=== PATIENT | male | born 1965 | race Caucasian/White ===

== ENCOUNTER → 2018-06-21 | Outpatient (CLI) | payer BC ==
[2018-06-21 16:37] LABS: BASO # 0.1 10^3/uL (0.0-0.2); BASO % 0.8 % (0.0-1.0); EOS # 0.1 10^3/uL (0.0-0.50); EOS % 1.2 % (0.0-3.0); HEMATOCRIT 41.5 % (42.0-52.0); HEMOGLOBIN 14.3 g/dl (13.5-17.5); IMMATURE GRANULOCYTE % 1.2 % (0-3.0); LYMPH # 1.1 10^3/uL (1.5-4.5); LYMPH % 16.4 % (24.0-44.0); MEAN CORPUSCULAR HEMOGLOBIN 29.2 pg (27.0-33.0); MEAN CORPUSCULAR HGB CONC 34.5 g/dl (32.0-36.5); MEAN CORPUSCULAR VOLUME 84.9 fl (80.0-96.0); MONO # 0.7 10^3/uL (0.0-0.8); MONO % 10.4 % (0.0-5.0); NEUTROPHILS # 4.5 10^3/uL (1.8-7.7); PLATELET COUNT, AUTOMATED 298 10^3/uL (150-450); RED BLOOD COUNT 4.89 10^6/uL (4.30-6.10); RED CELL DISTRIBUTION WIDTH 12.8 % (11.5-14.5); WHITE BLOOD COUNT 6.5 10^3/uL (4.0-10.0)
[2018-06-21 22:13] LABS: ALBUMIN 3.4 GM/DL (3.2-5.2); ALKALINE PHOSPHATASE 304 U/L (45-117); ALT/SGPT 142 U/L (12-78); ANION GAP 10 MEQ/L (8-16); AST/SGOT 64 U/L (7-37); BILIRUBIN,TOTAL 0.3 MG/DL (0.2-1.0); BLOOD UREA NITROGEN 19 MG/DL (7-18); CALCIUM LEVEL 8.8 MG/DL (8.5-10.1); CARBON DIOXIDE LEVEL 24 MEQ/L (21-32); CHLORIDE LEVEL 105 MEQ/L (98-107); CREATININE FOR GFR 0.61 MG/DL (0.70-1.30); GLOMERULAR FILTRATION RATE > 60.0 (>56); GLUCOSE, FASTING 275 MG/DL (70-100); POTASSIUM SERUM 3.9 MEQ/L (3.5-5.1); SODIUM LEVEL 139 MEQ/L (136-145); TOTAL PROTEIN 6.4 GM/DL (6.4-8.2)
[2018-06-21 23:18] LABS: ALBUMIN/GLOBULIN RATIO 1.13 (1.00-1.93)
== END ==
LOC: M WUC 11:47
DX: R73.9 Hyperglycemia, unspecified (principal)
CPT/HCPCS: 80053

== ENCOUNTER → 2018-07-08 | Outpatient (CLI) | payer BC | LOC: M RAD 09:33 | DX: L97.323 Non-pressure chronic ulcer of left ankle with necrosis of muscle (principal) | CPT/HCPCS: 93971 ==

== ENCOUNTER → 2018-07-08 | Outpatient (REF) | payer BC ==
[2018-07-08 18:49] LABS: ANION GAP 10 MEQ/L (8-16); BLOOD UREA NITROGEN 22 MG/DL (7-18); CALCIUM LEVEL 9.4 MG/DL (8.5-10.1); CARBON DIOXIDE LEVEL 27 MEQ/L (21-32); CHLORIDE LEVEL 103 MEQ/L (98-107); CHOLESTEROL LEVEL 165 MG/DL (<200); CHOLESTEROL RISK RATIO 3.113 (<5); CREATININE FOR GFR 0.67 MG/DL (0.70-1.30); GLOMERULAR FILTRATION RATE > 60.0 (>56); GLUCOSE, FASTING 203 MG/DL (70-100); HDL CHOLESTEROL 53 MG/DL (>40); LDL CHOLESTEROL 100 MG/DL (<100); NON-HDL-C 112 MG/DL; POTASSIUM SERUM 4.7 MEQ/L (3.5-5.1); SODIUM LEVEL 140 MEQ/L (136-145); TRIGLYCERIDES LEVEL 62 MG/DL (<150)
[2018-07-08 18:53] LABS: ESTIMATED AVERAGE GLUCOSE 229 MG/DL (60-110); HEMOGLOBIN A1c 9.6 %
[2018-07-08 18:58] LABS: MALB URINE SIEMENS 38.4 MG/L
[2018-07-08 19:19] LABS: MAU/CREAT RATIO 42.2 MCG/MG (0.0-30.0)
== END ==
LOC: M SFHCPLAZ 15:52
DX: I10 Essential (primary) hypertension (principal); Z13.1 Encounter for screening for diabetes mellitus
CPT/HCPCS: 83036

== ENCOUNTER → 2018-12-20 | Outpatient (REF) | payer BC ==
[2018-12-20 17:39] LABS: HEMOGLOBIN A1c 7.6 %
== END ==
LOC: M SFHCPLAZ 15:10
PROVIDERS: ATTEND Family Medicine
DX: E11.622 Type 2 diabetes mellitus with other skin ulcer (principal)

== ENCOUNTER → 2019-03-21 | Outpatient (REF) | payer BC ==
[2019-03-21 17:17] LABS: HEMOGLOBIN A1c 8.1 %
== END ==
LOC: M SFHCPLAZ 13:38
PROVIDERS: ATTEND Family Medicine
DX: E11.622 Type 2 diabetes mellitus with other skin ulcer (principal)

== ENCOUNTER 2019-07-14 10:32 | Day surgery (SDC) | payer BC ==
[~2019-07-14] VITALS: Ht 167.6 cm; Wt 83.5 kg
[~2019-07-14 10:32] MED LIST: BALANCED SALT IRRIGATION SOLUTION 500ML BAG (FOR OR EYE MACHINE) As Ordered ONE; DEPA250T32 PO; DUOVISC (0.50ML VISCOAT/0.55ML PROVISC) OPHTH KIT As Ordered ONE; LIDOCAINE 0.75%/EPINEPHRINE 0.025% IN BSS 0.8ML SYR INTRACAMERAL--OR ONLY As Ordered ONE; LISI10TA4 PO; METF-839 PO; MIDAZOLAM INJ 2 MG/2 ML VIAL (J2250) As Ordered ONE; OFLOXACIN 0.3 % (OCUFLOX) OPTH SOL 5ML OD ONE; OMEP10CASR PO; PHENYLEPHRINE 2.5% OPHTH SOL 2ML OD ONE; POVIDONE-IODINE 5% OPHTH PREP SOL 30ML As Ordered ONE; PROPARACAINE 0.5% OPHTH SOL 15ML OD ONE; TIZA2CAP PO; TROPICAMIDE 1% OPHTH SOLN 2ML OD ONE; fentaNYL 100 MCG/2 ML INJECTION (J3010) As Ordered ONE
[2019-07-14] MEDS ORDERED: CEFUROXIME 1MG/0.1ML INTRACAMERAL INJ As Ordered ONE (11:50)
[2019-07-14 12:40] VITALS: BP 138/83
--- NOTE | 2019-07-19 18:00 | RO ---
DATE OF PROCEDURE: 07/14/2019 PREOPERATIVE DIAGNOSIS: 1. Visually significant nuclear sclerotic cataract right eye. POSTOPERATIVE DIAGNOSIS: 1. Visually significant nuclear sclerotic cataract right eye. PROCEDURE: 1. Cataract extraction with use of phacoemulsification and placement of intraocular lens, [id number], 21.0 D, right eye. SURGEON: Sorin Taylor DO SURFACE TO [employer] OFFICER: None. ANESTHESIA: Local with monitored anesthesia care (MAC). COMPLICATIONS: None. POSTOPERATIVE CONDITION: Stable. INDICATIONS FOR SURGERY: 1. Blurred vision affecting patients activities of daily living. DESCRIPTION OF PROCEDURE: The patient was seen in the preoperative area and properly identified. The correct operative eye was identified and marked. The patient received topical anesthetic, antibiotics, and topical dilating drops. The patient was then transferred to the operating room. The correct side was re-identified, and a time-out was performed. The eye was prepped and draped in a sterile fashion. The eyelids were isolated with Tegaderm tape, and the lids were held open with an adjustable speculum. A 1.0 mm paracentesis incision was made. Intraocular preservative-free Shugarcaine was then injected into the anterior chamber. Viscoelastic was then injected into the anterior chamber through the paracentesis. Using a 2.4 mm sharp-tipped keratome, the anterior chamber was entered via a temporal clear cornea incision. A continuous curvilinear capsulorrhexis was created with Utrata forceps. Hydrodissection was performed with balanced salt solution (BSS) on a blunt cannula until the nucleus was able to rotate freely. The crystalline lens was phacoemulsified and aspirated. Irrigation/aspiration was used to remove the cortical material. Cohesive viscoelastic was placed into the capsular bag to deepen it. The implant was placed into the capsular bag and allowed to unfold. Placement was confirmed by visualizing the anterior capsulorrhexis. Irrigation/aspiration was used to remove the viscoelastic. The clear corneal incision was hydrated with BSS on a blunt cannula. The lens was well positioned. The incisions were then tested for leaks and found to be negative. The eye was then palpated for appropriate pressure and adjusted accordingly with BSS. The eyelid speculum was then carefully removed. A shield was placed over the eye. The patient tolerated the procedure well and was discharged to the recovery unit in a stable condition.
== END 2019-07-14 13:12 | disposition home or self-care (01) ==
LOC: M SDC 10:32
PROVIDERS: ATTEND Ophthalmology
DX: H25.11 Age-related nuclear cataract, right eye (principal); I10 Essential (primary) hypertension; E11.9 Type 2 diabetes mellitus without complications; K21.9 Gastro-esophageal reflux disease without esophagitis; G43.909 Migraine, unspecified, not intractable, without status migrainosus; Z79.899 Other long term (current) drug therapy
CPT/HCPCS: 66984; J2250; J3010

== ENCOUNTER 2019-07-21 14:44 | Inpatient (IN) | payer BC ==
[~2019-07-21] VITALS: Ht 167.6 cm; Wt 84.6 kg
[~2019-07-21 14:44] MED LIST changes: -BALANCED SALT IRRIGATION SOLUTION 500ML BAG (FOR OR EYE MACHINE) As Ordered ONE; -DUOVISC (0.50ML VISCOAT/0.55ML PROVISC) OPHTH KIT As Ordered ONE; -LIDOCAINE 0.75%/EPINEPHRINE 0.025% IN BSS 0.8ML SYR INTRACAMERAL--OR ONLY As Ordered ONE; -MIDAZOLAM INJ 2 MG/2 ML VIAL (J2250) As Ordered ONE; -OFLOXACIN 0.3 % (OCUFLOX) OPTH SOL 5ML OD ONE; -PHENYLEPHRINE 2.5% OPHTH SOL 2ML OD ONE; -POVIDONE-IODINE 5% OPHTH PREP SOL 30ML As Ordered ONE; -PROPARACAINE 0.5% OPHTH SOL 15ML OD ONE; -TROPICAMIDE 1% OPHTH SOLN 2ML OD ONE; -fentaNYL 100 MCG/2 ML INJECTION (J3010) As Ordered ONE
[2019-07-21] MEDS ORDERED: DOXY100C PO (15:10)
[2019-07-21 15:23] LABS: BASO % 0.2 % (0.0-1.0); EOS # 0.1 10^3/uL (0.0-0.5); EOS % 0.8 % (0.0-3.0); HEMATOCRIT 44.1 % (42.0-52.0); HEMOGLOBIN 15.3 g/dl (13.5-17.5); LYMPH # 1.5 10^3/uL (1.5-5.0); LYMPH % 14.1 % (24.0-44.0); MEAN CORPUSCULAR HEMOGLOBIN 29.4 pg (27.0-33.0); MEAN CORPUSCULAR HGB CONC 34.7 g/dl (32.0-36.5); MEAN CORPUSCULAR VOLUME 84.6 fl (80.0-96.0); MONO # 1.3 10^3/uL (0.0-0.8); MONO % 11.9 % (0.0-5.0); NEUTROPHILS # 7.8 10^3/uL (1.5-8.5); NEUTROPHILS % 72.6 % (36.0-66.0); PLATELET COUNT, AUTOMATED 225 10^3/uL (150-450); RED BLOOD COUNT 5.21 10^6/uL (4.30-6.10); WHITE BLOOD COUNT 10.7 10^3/uL (4.0-10.0)
[2019-07-21] MEDS ORDERED: NITROGLYCERIN 0.4 MG SUBL TABLET SL PRN (15:30)
[2019-07-21] MEDS ORDERED: ASPIRIN 325 MG TAB PO ONE (15:30)
--- NOTE | 2019-07-21 15:39 | REP ---
PORTABLE CHEST: AP portable view of the chest is performed. There is infiltrate in the right mid lung zone. Left lung is clear. Cardiac silhouette is mildly prominent in size. Mediastinal silhouette is unremarkable. IMPRESSION: Right mid lung infiltrate. Electronically Signed by Chaz Dickey MD 07/26/2019 09:04 A
[2019-07-21 15:53] LABS: ALBUMIN 3.8 GM/DL (3.2-5.2); ALT/SGPT 54 U/L (12-78); BILIRUBIN,DIRECT 0.2 MG/DL (0.0-0.2); BILIRUBIN,TOTAL 0.7 MG/DL (0.2-1.0); BLOOD UREA NITROGEN 15 MG/DL (7-18); CALCIUM LEVEL 9.5 MG/DL (8.5-10.1); CARBON DIOXIDE LEVEL 28 MEQ/L (21-32); CHLORIDE LEVEL 102 MEQ/L (98-107); CK-MB VALUE MASS 4.7 NG/ML (<3.6); CPK CREATINE PHOSPHOKINASE 133 U/L (39-308); FREE T4 1.28 NG/DL (0.76-1.46); GLOMERULAR FILTRATION RATE > 60.0 (>56); GLUCOSE, FASTING 266 MG/DL (70-100); LIPASE 108 U/L (73-393); MAGNESIUM LEVEL 1.5 MG/DL (1.8-2.4); MB/CK RELATIVE INDEX 3.53 (< OR =4); NT-PRO BNP 536 PG/ML (<125); PHOSPHORUS LEVEL 2.8 MG/DL (2.5-4.9); POTASSIUM SERUM 4.2 MEQ/L (3.5-5.1); SODIUM LEVEL 137 MEQ/L (136-145); THYROID STIMULATING HORMONE 0.982 uIU/ML (0.358-3.740); TROPONIN I 0.44 NG/ML (< 0.10)
[2019-07-21] MEDS ORDERED: ISOVUE-370 76% 100ML VIAL (Q9967) As Ordered ONE (16:03)
[2019-07-21] MEDS ORDERED: PREDOPD OD (16:39)
[2019-07-21] MEDS ORDERED: OMEP20CA4 PO (16:39)
[2019-07-21] MEDS ORDERED: LISI-538 PO (16:39)
[2019-07-21] MEDS ORDERED: BROM0.07 OD (16:39)
[2019-07-21] MEDS ORDERED: DEPA1TAB3 PO (16:40)
--- NOTE | 2019-07-21 16:50 | REP ---
CT of the chest with IV contrast, CT pulmonary angiography for right pleuritic chest pain: Comparison is the portable plain film study performed earlier today. The there is an infiltrate in the posterior segment of the right upper lobe. There is no pleural effusion. The lung mckeon otherwise clear. There are no emboli in the pulmonary trunk or central pulmonary arteries. There are no emboli in the pulmonary artery lobe or segment branches. There is right hilar adenopathy measuring up to 1 cm short axis. There is no left hilar adenopathy. There is no mediastinal or axillary adenopathy. The thoracic aorta is unremarkable. Cardiac size normal. There is no pericardial effusion. The visualized upper abdominal contents are unremarkable. Impression: There are no pulmonary emboli. There is an infiltrate in the posterior segment of the right upper lobe. No pleural effusion or pleural thickening. Right hilar adenopathy. Electronically Signed by Chaz Vaca MD 07/21/2019 04:41 P
[2019-07-21] MEDS ORDERED: ACETAMINOPHEN TAB 650MG DOSE (2X325MG) PO ONE (17:00)
[2019-07-21] MEDS ORDERED: DEXTROSE 50% 50 ML SYRINGE IV PRN (18:00)
[2019-07-21] MEDS ORDERED: GLUCAGON FOR INJ 1 MG VIAL (J1610) SC PRN (18:00)
[2019-07-21] MEDS ORDERED: GLUCOSE 4 GM CHEW TABLET PO PRN (18:00)
[2019-07-21] MEDS: NS 1,000 ML IV SCH (18:22)
[2019-07-21] MEDS: cefTRIAXone SOD 1 GM in D5W MINI-BAG PLUS 50 ML IV SCH (18:23)
--- NOTE | 2019-07-21 18:27 | HPEPDOC ---
General Date of Admission 07/21/2019 Date of Service: Jul 21, 2019 Chief Complaint The patient is a 54-year-old male Who presented to the emergency room with complaints of right-sided chest pain History of Present Illness Patient is a 54-year-old male with a PMHx of HTN, NIDDM2, hx of left intracranial clot (s/p surgical resection, now on seizure prophylaxis), who presented to the emergency room with complaints of right-sided chest pain. Patient has reported that over the course of 1 week hes been experiencing a dry cough and had visited his primary care provider, Dr. Bradley Santos on 07/20/2019. Patient was prescribed antibiotics and was subsequently sent home. While visiting his primary care provider. He denied any shortness of breath, but did report a dry cough with very minor sputum production and denied any blood tinge. He denied any chest pain or palpitations at that time. Today, patient began to experience a right sided chest pain that started at 11 AM. Patient describes his pain at a 9/10. . He noted that his pain had improved after taking ibuprofen and a reported the pain as a 5 out of 10. At that point. Patient reported that his pain was relatively continuous, but had diminished in intensity after taking ibuprofen. Patient describes the pain as stabbing in nature and reports that it is not pressure-like. Patient denies any radiation of his chest pain. Patient denies any associated nausea, vomiting or palpitations. As an outpatient, he has not experienced any fevers or chills. He denies abdominal pain, constipation, diarrhea, or urinary discomfort. Patient denies any history of heart attacks or strokes in the past. Has not received any cardiac catheterizations, nor has he received a stress test. Patient reports that his appetite is fair. He denies any significant change in his weight. Home Medications Scheduled Bromfenac Sodium (Bromsite) 0.075% 5ML Drops, 1 DROP OD BID, (Reported) FOR EYE SURGERY IN RIGHT EYE ON 07/14 Divalproex Sodium (Depakote) 500 Mg Tablet.dr, 500 MG PO BID, (Reported) Doxycycline Hyclate (Doxycycline Hyclate) 100 Mg Capsule, 100 MG PO BID, (Reported) STARTED 10 DAY COURSE ON 07/20 Lisinopril (Lisinopril) 20 Mg Tablet, 20 MG PO QHS, (Reported) Omeprazole (Omeprazole) 20 Mg Capsule.dr, 20 MG PO DAILY, (Reported) Prednisolone Acetate (Prednisolone Acetate 1% Opth Susp) 5 Ml Drops.susp, 1 DROP OD TID, (Reported) FOR EYE SURGERY ON 07/14 Tizanidine HCl (Tizanidine HCl) 2 Mg Capsule, 2 MG PO QHS, (Reported) Allergies Coded Allergies: No Known Allergies (Unverified , 07/07/19) Past Medical History Medical History HTN, NIDDM2, hx of left intracranial clot (s/p surgical resection, now on seizure prophylaxis) Surgical History Right eye cataract surgery Left-sided intracranial blood clot that was removed via surgical decompression at [facility] 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 Family History - Mother with a history of pancreatic cancer - Father with a history of heart disease Social History - Denies the use of alcohol, tobacco or illicit drugs - Denies recent travel - Lives with in [place] - Occupation; works for [employer] Review of Systems Other systems 10 point review of systems complete, all negative otherwise stated in HPI Vital Signs - Vitals: BP 134/89, HR 76, RR 18, Sat 95%RA, Temp 97.8 - General: Lying in bed, No acute distress, Speaking in full sentences, AAOx3 - HEENT: NC, AT, PERRLA, EOMI - CVS: IrIr, +S1S2, No chest tenderness on palpation - Lungs: Fair air entry bilaterally, No wheezing / rales; Rhonchi appreciated at R lung base - Abdomen: Soft, Non-distended, Non-tender - Extremities: No lower extremity edema, No calf tenderness - Neuro: No focal motor or sensory deficit - Skin: No visible rashes Laboratory Data Labs 24H Laboratory Tests 2 07/21/19 15:04: Immature Granulocyte % (Auto) 0.4, White Blood Count 10.7H, Red Blood Count 5.21, Hemoglobin 15.3, Hematocrit 44.1, Mean Corpuscular Volume 84.6, Mean Corpu scular Hemoglobin 29.4, Mean Corpuscular Hemoglobin Concent 34.7, Red Cell Distribution Width 12.6, Platelet Count 225, Neutrophils (%) (Auto) 72.6H, Lymphocytes (%) (Auto) 14.1L, Monocytes (%) (Auto) 11.9H, Eosinophils (%) (Auto) 0.8, Basophils (%) (Auto) 0.2, Neutrophils # (Auto) 7.8, Lymphocytes # (Auto) 1.5, Monocytes # (Auto) 1.3H, Eosinophils # (Auto) 0.1, Basophils # (Auto) 0.0, Nucleated Red Blood Cells % (auto) 0.0, Anion Gap 7L, Glomerular Filtration Rate > 60.0, Calcium Level 9.5, Phosphorus Level 2.8, Magnesium Level 1.5L, Aspartate Amino Transf (AST/SGOT) 30, Alanine Aminotransferase (ALT/SGPT) 54, Alkaline Phosphatase 185H, Total Bilirubin 0.7, Direct Bilirubin 0.2, Total Creatine Kinase 133, Creatine Kinase MB 4.7H, Creatine Kinase MB Relative Index 3.53, Troponin I 0.44H, OV-Uyh-I-Type Natriuretic Peptide 536H, Total Protein 7.0, Albumin 3.8, Albumin/Globulin Ratio 1.19, Lipase 108, Thyroid Stimulating Hormone (TSH) 0.982, Free Thyroxine 1.28 07/21/19 17:49: CBC/BMP Laboratory Tests 07/21/19 15:04 Red Blood Count 5.21, Mean Corpuscular Volume 84.6, Mean Corpuscular Hemoglobin 29.4, Mean Corpuscular Hemoglobin Concent 34.7, Red Cell Distribution Width 12.6, Neutrophils (%) (Auto) 72.6 H, Lymphocytes (%) (Auto) 14.1 L, Monocytes (%) (Auto) 11.9 H, Eosinophils (%) (Auto) 0.8, Basophils (%) (Auto) 0.2, Neutrophils # (Auto) 7.8, Lymphocytes # (Auto) 1.5, Monocytes # (Auto) 1.3 H, Eosinophils # (Auto) 0.1, Basophils # (Auto) 0.0 Microbiology Microbiology 07/21/19 Blood Culture, Received Pending 07/21/19 Blood Culture, Received Pending Plan / VTE VTE Prophylaxis Ordered?: Yes Plan Plan Ride sided atypical chest pain - Patient presented to the emergency room with complaints of chest pain that started at 11 AM - Patient description of chest pain does appear to be atypical in nature and reports pleurisy - Patient has no associated nausea, vomiting, palpitations or shortness of breath - Imaging is consistent with right-sided infiltrate which would match the location of his right-sided chest pain - EKG was reviewed and does reveal evidence of atrial fibrillation and left bundle-branch block - There are no prior EKGs to compare against - Troponin on admission noted to be 0.44 - Will continue to trend cardiac markers - Will continue with telemetry monitoring and serial EKGs - ECHO will be ordered stat - Case was discussed with Dr. Brewer; current plan of care is to repeat cardiac markers and evaluate for upper tract - Cardiology has recommended transfer to higher level of care if cardiac markers continue to trend up Cough - likely 2/2 community acquire pneumonia - Patient reported that hes been experiencing a nonproductive cough over 1 week duration - Has visited his primary care provider yesterday and was prescribed antibiotics - Remains hemodynamically stable and afebrile - Leukocytosis noted - CXR 07/21: Right mid lung infiltrate. - CTA chest 07/21: There are no pulmonary emboli. There is an infiltrate in the posterior segment of the right upper lobe. No pleural effusion or pleural thickening. Right hilar adenopathy. - Will adjust antibiotic coverage to cover for community-acquired pneumonia Atrial fibrillation - Patient is currently asymptomatic and reports mild right-sided pleuritic chest pain - EKG does reveal a rate controlled atrial fibrillation - CHADSVasc: 2 - Patient is at moderate to high risk of stroke given his chads score of 2. Risks and benefits of anti-coag elation were discussed with the patient; he has verbalized understanding - Will start patient on full anticoagulation after consulting with cardiology Hypomagnesemia - Will supplement HTN - c/w Lisinopril with holding parameters NIDDM2 - Patient reports that he tries to control this with diet alone - Will start him on ISS Hx of left intracranial clot - s/p surgical resection - Currently on seizure prophylaxis - Will c/w Depakote GERD - c/w Omeprazole DVT prophylaxis - Will start full anticoagulation (re: above) after consulting with Cardiology WILLIE GARAY MD Jul 21, 2019 18:27
[2019-07-21 18:35] LABS: CK-MB VALUE MASS 3.7 NG/ML (<3.6); MB/CK RELATIVE INDEX 3.78 (< OR =4); TROPONIN I 0.43 NG/ML (< 0.10)
[2019-07-21 20:00] VITALS: BP 133/83
[2019-07-21] MEDS: HumaLOG INSULIN (NovoLOG) PER UNIT SC SCH (21:00)
[2019-07-21] MEDS: MAG SULF 1GM/100ML (MAG RUN) 1 GM in IV 1 EA IV SCH (21:12)
[2019-07-21] MEDS: AZITHROMYCIN INJ 500 MG, VIAL MATE ADAPTER 1 EACH in D5W 250 ML IV SCH (21:13)
[2019-07-21] MEDS: ACETAMINOPHEN TAB 650MG DOSE (2X325MG) PO PRN (21:16)
[2019-07-21] MEDS: prednisoLONE ACET 1% OPHTH SUSP 5ML OD SCH (21:16)
[2019-07-21] MEDS: LISINOPRIL 20 MG TAB PO SCH (21:17)
[2019-07-21] MEDS: DIVALPROEX 500 MG TAB PO SCH (21:17)
[2019-07-21 23:59] VITALS: BP 141/94
[2019-07-22 00:38] LABS: CK-MB VALUE MASS 2.8 NG/ML (<3.6); MB/CK RELATIVE INDEX 3.73 (< OR =4); TROPONIN I 0.42 NG/ML (< 0.10)
[2019-07-22] MEDS: IBUPROFEN 600 MG TAB PO PRN ×3 (00:40→19:48)
[2019-07-22] MEDS: ACETAMINOPHEN TAB 650MG DOSE (2X325MG) PO PRN ×2 (03:38→21:07)
[2019-07-22 04:00] VITALS: BP 140/76
[2019-07-22] MEDS: NS 1,000 ML IV SCH (04:00)
--- NOTE | 2019-07-22 06:17 | ECHO ---
DATE OF STUDY: 07/21/2019 REFERRING PHYSICIAN: Dr. Silverio Mckeon INDICATION: Chest pain. HEIGHT: 167 cm. WEIGHT: 86 kg. DIMENSIONS: IVS: 1.1 LV: 4.6 LVPW: 1.2 LA: 4.3 Aorta: 3.5 RV: 3.6 Mitral E wave velocity: 115 E prime septal: 7.5 E prime lateral: 13.6 FINDINGS: The study is of difficult technical quality. The patient is in sinus rhythm with wide QRS complex. There is frequent supraventricular ectopy and rate is around 100 beats per minute. Left ventricle is normal size. Mild left ventricular hypertrophy is present. There is septal and apical wall motion abnormality. I suspect that this is principally due to underlying left bundle branch block, even though the extent seems to be little bit bigger than would be expected from conduction abnormality only. Overall left ventricle ejection fraction (LVEF) is going to be mildly reduced. I estimate ejection fraction (EF) around 45%. This is based on somewhat limited visualization. Right ventricle appears normal. Left atrium is at least mildly enlarged. Right atrium appears normal. Aortic valve is heavily calcified. There is almost complete fusion of left and noncoronary cusp by 2-D imaging. I assume at least moderate aortic stenosis. Mitral valve exhibits grossly preserved mobility, even though there are some degenerative abnormalities of mitral leaflets. Tricuspid valve appears normal. Pulmonic valve was not well seen. No pericardial effusion is noted. Inferior vena cava is dilated, but collapses with respiration indicative of likely mildly elevated central venous pressure. Aortic root is normal. Aortic arch was not well seen. Abdominal aorta appears grossly normal. Doppler interrogation of aortic valve reveals probably moderate stenosis. Peak gradient across the valve was 34 mean, gradient 19. Calculated aortic valve area was 1.0 cm2, which probably overestimates the severity of stenosis. There is no significant mitral stenosis or insufficiency. Only mild tricuspid insufficiency. Calculated pulmonary artery pressure is in 40s corresponding to moderate pulmonary hypertension. Evaluation of diastolic function is inconclusive. There is only E wave on mitral inflow, I suspect due to first-degree AV block and tachycardia. Tissue Doppler velocities of mitral annulus are relatively preserved though. CONCLUSIONS: 1. Study is of fair technical quality. 2. Normal LV size with septal and apical and distal anterior wall motion abnormality, at least in part due to underlying conduction system disease and overall mildly reduced left ventricular systolic function. 3. Calcific aortic stenosis, at least moderate (mean gradient 19, calculated aortic valve area 1.0 cm squared). 4. No further significant valvular disease. 5. At least mildly elevated central venous pressure. 6. Moderate pulmonary hypertension. 7. Unable to accurately estimate diastolic function. COMMENT: Subacute bacterial endocarditis (SBE) prophylaxis is not recommended. If high suspicion for underlying coronary artery disease, I would have low threshold to pursue coronary angiography and also right and left heart catheterization to reevaluate aortic stenosis.
[2019-07-22 06:25] LABS: BASO % 0.4 % (0.0-1.0); EOS # 0.1 10^3/uL (0.0-0.5); EOS % 1.3 % (0.0-3.0); HEMATOCRIT 40.8 % (42.0-52.0); HEMOGLOBIN 14.1 g/dl (13.5-17.5); LYMPH # 1.5 10^3/uL (1.5-5.0); LYMPH % 19.2 % (24.0-44.0); MEAN CORPUSCULAR HEMOGLOBIN 29.7 pg (27.0-33.0); MEAN CORPUSCULAR HGB CONC 34.6 g/dl (32.0-36.5); MEAN CORPUSCULAR VOLUME 85.9 fl (80.0-96.0); MONO # 1.1 10^3/uL (0.0-0.8); MONO % 13.7 % (0.0-5.0); NEUTROPHILS % 64.7 % (36.0-66.0); PLATELET COUNT, AUTOMATED 202 10^3/uL (150-450); RED BLOOD COUNT 4.75 10^6/uL (4.30-6.10); WHITE BLOOD COUNT 7.7 10^3/uL (4.0-10.0)
[2019-07-22 06:53] LABS: BLOOD UREA NITROGEN 16 MG/DL (7-18); CALCIUM LEVEL 8.8 MG/DL (8.5-10.1); CARBON DIOXIDE LEVEL 30 MEQ/L (21-32); CHLORIDE LEVEL 103 MEQ/L (98-107); CK-MB VALUE MASS 2.2 NG/ML (<3.6); CPK CREATINE PHOSPHOKINASE 60 U/L (39-308); CREATININE FOR GFR 0.75 MG/DL (0.70-1.30); GLOMERULAR FILTRATION RATE > 60.0 (>56); GLUCOSE, FASTING 210 MG/DL (70-100); MAGNESIUM LEVEL 1.9 MG/DL (1.8-2.4); MB/CK RELATIVE INDEX 3.67 (< OR =4); POTASSIUM SERUM 4.4 MEQ/L (3.5-5.1); SODIUM LEVEL 139 MEQ/L (136-145); TROPONIN I 0.42 NG/ML (< 0.10)
--- NOTE | 2019-07-22 07:32 | ECGEPIP ---
[facility] - ED Test Date: 2019-07-21 Pat Name: CORAZON ISRAEL Department: Room: - Gender: Male Client Leader: JCherrie : 1965 Requested By: LACY Childs Order Number: [id number] Reading MD: Trevor Torres Measurements Intervals [place] Rate: 89 P: HI: 0 QRS: -38 QRSD: 141 T: 107 QT: 363 QTc: 444 Interpretive Statements ATRIAL FIBRILLATION WITH ABERRANT CONDUCTION OR VENTRICULAR PREMATURE COMPLEXES MARKED LEFT AXIS DEVIATION LEFT BUNDLE BRANCH BLOCK NO PRIORS FOR COMPARISON Electronically Signed on 07-22-2019 7:31:31 EDT by Trevor Torres
[2019-07-22 07:33] VITALS: BP 149/97
[2019-07-22] MEDS: ASPIRIN 325 MG TAB PO SCH (08:04)
[2019-07-22] MEDS: HumaLOG INSULIN (NovoLOG) PER UNIT SC SCH ×4 (08:04→21:00)
[2019-07-22] MEDS: DIVALPROEX 500 MG TAB PO SCH ×2 (08:04→21:08)
[2019-07-22] MEDS: OMEPRAZOLE 20 MG CAP PO SCH (08:04)
[2019-07-22] MEDS: prednisoLONE ACET 1% OPHTH SUSP 5ML OD SCH ×3 (08:06→21:14)
[2019-07-22 11:30] VITALS: BP 140/88
[2019-07-22] MEDS ORDERED: HEPARIN DRIP 25,000 UNITS in IV 1 EA IV SCH ×2 (13:46→15:41)
[2019-07-22] MEDS ORDERED: HEPARIN SOD (PORCINE) 5000 UNITS/ML VIAL IV PRN ×2 (14:00→16:45)
--- NOTE | 2019-07-22 14:54 | IPNPDOC ---
Date Seen The patient was seen on 07/22/19. Progress Note SUBJECTIVE: Patient was seen and examined this morning. He currently has no new complaints. He states that his right sided chest pain has improved. He denies any shortness of breath but does admit to continued cough. Patient received an echocardiogram last night which revealed septal and apical and distal anterior wall motion abnormality and mildly reduced left ventricular systolic function. The patients troponins were trended overnight which appeared to stay at 0.42. There were no adverse events reported overnight OBJECTIVE PHYSICAL EXAMINATION: VITAL SIGNS: Please see below. GENERAL: Awake, alert, and oriented. Sitting up in bed. Does not appear to be in any acute distress. He is conversive and pleasant HEENT: Atraumatic, normocephalic. Eyes are nonicteric. Trachea is midline. No JVD CARDIOVASCULAR: 2/6 systolic ejection murmur. Normal rate. Irregular rhythm. No clicks or rubs. RESPIRATORY: Decreased breath sounds throughout. Good respiratory effort. No dullness to percussion. No wheezing rhonchi or rales ABDOMINAL: Soft, nondistended. Nontender to palpation in all 4 quadrants. Normoactive bowel sounds throughout EXTREMITIES: No edema. 2+ posterior tibial and radial pulses bilaterally. NEUROLOGICAL: No focal neurological deficits PSYCHOLOGICAL: Mood and affect appear appropriate LABORATORY DATA, IMAGING STUDIES, MICROBIOLOGY: Please see below. Echocardiogram: DATE OF STUDY: 07/21/2019 REFERRING PHYSICIAN: Dr. Silverio Garay INDICATION: Chest pain. HEIGHT: 167 cm. WEIGHT: 86 kg. DIMENSIONS: IVS: 1.1 LV: 4.6 LVPW: 1.2 LA: 4.3 Aorta: 3.5 RV: 3.6 Mitral E wave velocity: 115 E prime septal: 7.5 E prime lateral: 13.6 FINDINGS: The study is of difficult technical quality. The patient is in sinus rhythm with wide QRS complex. There is frequent supraventricular ectopy and rate is around 100 beats per minute. Left ventricle is normal size. Mild left ventricular hypertrophy is present. There is septal and apical wall motion abnormality. I suspect that this is principally due to underlying left bundle branch block, even though the extent seems to be little bit bigger than would be expected from conduction abnormality only. Overall left ventricle ejection fraction (LVEF) is going to be mildly reduced. I estimate ejection fraction (EF) around 45%. This is based on somewhat limited visualization. Right ventricle appears normal. Left atrium is at least mildly enlarged. Right atrium appears normal. Aortic valve is heavily calcified. There is almost complete fusion of left and noncoronary cusp by 2-D imaging. I assume at least moderate aortic stenosis. Mitral valve exhibits grossly preserved mobility, even though there are some degenerative abnormalities of mitral leaflets. Tricuspid valve appears normal. Pulmonic valve was not well seen. No pericardial effusion is noted. Inferior vena cava is dilated, but collapses with respiration indicative of likely mildly elevated central venous pressure. Aortic root is normal. Aortic arch was not well seen. Abdominal aorta appears grossly normal. Doppler interrogation of aortic valve reveals probably moderate stenosis. Peak gradient across the valve was 34 mean, gradient 19. Calculated aortic valve area was 1.0 cm2, which probably overestimates the severity of stenosis. There is no significant mitral stenosis or insufficiency. Only mild tricuspid insuff iciency. Calculated pulmonary artery pressure is in 40s corresponding to moderate pulmonary hypertension. Evaluation of diastolic function is inconclusive. There is only E wave on mitral inflow, I suspect due to first-degree AV block and tachycardia. Tissue Doppler velocities of mitral annulus are relatively preserved though. CONCLUSIONS: 1. Study is of fair technical quality. 2. Normal LV size with septal and apical and distal anterior wall motion abnormality, at least in part due to underlying conduction system disease and overall mildly reduced left ventricular systolic function. 3. Calcific aortic stenosis, at least moderate (mean gradient 19, calculated aortic valve area 1.0 cm squared). 4. No further significant valvular disease. 5. At least mildly elevated central venous pressure. 6. Moderate pulmonary hypertension. 7. Unable to accurately estimate diastolic function. COMMENT: Subacute bacterial endocarditis (SBE) prophylaxis is not recommended. If high suspicion for underlying coronary artery disease, I would have low threshold to pursue coronary angiography and also right and left heart catheterization to reevaluate aortic stenosis. DD: Janki Kwon MD 07/22/19 0542 DT: LYNN 07/22/19 0609 DS: DVT prophylaxis ordered?: Patient is on heparin drip ASSESSMENT AND PLAN: Patient is a 54 year old male who presented to the [facility] ER with complaint of right sided chest pain. At the ER the patient was found to have a right sided infiltrate. Additionally, EKG demonstrated a new left bundle branch block and atrial fibrillation with aberrant conduction. Patients cardiac markers were elevated and trended overnight which has plateaued at 0.4. Patient was seen by cardiology who has contacted [facility]. Patient is planned to be sent to [facility] on Thursday for cardiac catheterization. He is to be continued on heparin drip. PROBLEMS: 1. Elevated troponin with new left bundle branch block -Patient presented with elevated troponin and evidence of a possible new left bundle branch block. His chest pain has resolved. His troponin has been trended and plateaued at 0.4. Patient was seen by Cardiology. [facility] has been contacted with plans to transfer the patient on Thursday for cardiac catheterization. -Patient has received echocardiogram report attached above. -Patient will be placed on a IV heparin drip. Will start high intensity stati n -Continue aspirin 324mg -No beta oleg / CCB given high degree AV block 2 Right sided pulmonary infiltrated likely community acquired pneumonia -Patient presented with a complaint of cough, right sided chest pain with radiographic evidence of a right sided infiltrate. -Continue on Ceftriaxone and Azithromycin 3. Atrial Fibrillation -Patient is asymptomatic. Patient is a CHADSVASC score of 2. Currently on heparin drip for his chest pain and positive troponin. Patient will need anti coagulation upon discharge. 4. 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 He has been seen by cardiology. He will likely need a pacemaker. Patient is currently asymptomatic. He will remain on telemetry. Patient is planned to be transferred to [facility] for Cardiac catheterization on Thursday 5. Hypomagnesemia -Supplement PRN 6. HTN -Will continue lisinopril 7. NIDDM2 -Patient is on sliding scale 8. Hx of intracranial clot -S/p surgical resection -Seizure precautions -Continued on Depakote 9. GERD -Omeprazole 10. DVT prophylaxis -Patient is currently on a heparin drip DISPOSITION: Patient will be started on heparin drip per recommendations of Cardiology. Plan for transfer to [facility] for cardiac catherization on ay. VS, I&O, 24H, Fishbone Vital Signs/I&O Vital Signs Date Time Temp Pulse Resp B/P (MAP) Pulse Ox O2 Delivery O2 Flow Rate FiO2 07/22/19 11:30 98.1 74 18 140/88 (105) 98 07/22/19 00:15 Room Air I&O- Last 24 Hours up to 6 AM 07/22/19 06:00 Intake Total 1605 ml Output Total 900 ml Balance 705 ml Laboratory Data 24H LABS Laboratory Tests 2 07/21/19 15:04: Immature Granulocyte % (Auto) 0.4, White Blood Count 10.7H, Red Blood Count 5.21, Hemoglobin 15.3, Hematocrit 44.1, Mean Corpuscular Volume 84.6, Mean Corpuscular Hemoglobin 29.4, Mean Corpuscular Hemoglobin Concent 34.7, Red Cell Distribution Width 12.6, Platelet Count 225, Neutrophils (%) (Auto) 72.6H, Lymphocytes (%) (Auto) 14.1L, Monocytes (%) (Auto) 11.9H, Eosinophils (%) (Auto) 0.8, Basophils (%) (Auto) 0.2, Neutrophils # (Auto) 7.8, Lymphocytes # (Auto) 1.5, Monocytes # (Auto) 1.3H, Eosinophils # (Auto) 0.1, Basophils # (Auto) 0.0, Nucleated Red Blood Cells % (auto) 0.0, Anion Gap 7L, Glomerular Filtration Rate > 60.0, Calcium Level 9.5, Phosphorus Level 2.8, Magnesium Level 1.5L, Aspartate Amino Transf (AST/SGOT) 30, Alanine Aminotransferase (ALT/SGPT) 54, Alkaline Phosphatase 185H, Total Bilirubin 0.7, Direct Bilirubin 0.2, Total Creatine Kinase 133, Creatine Kinase MB 4.7H, Creatine Kinase MB Relative Index 3.53, Troponin I 0.44H, NG-Iia-F-Type Natriuretic Peptide 536H, Total Protein 7.0, Albumin 3.8, Albumin/Globulin Ratio 1.19, Lipase 108, Thyroid Stimulating Hormone (TSH) 0.982, Free Thyroxine 1.28 07/21/19 17:49: Total Creatine Kinase 98, Creatine Kinase MB 3.7H, Creatine Kinase MB Relative Index 3.78, Troponin I 0.43H 07/21/19 21:32: Bedside Glucose (Misc Panel) 219H 07/21/19 23:54: Total Creatine Kinase 75, Creatine Kinase MB 2.8, Creatine Kinase MB Relative Index 3.73, Troponin I 0.42H 07/22/19 06:14: Immature Granulocyte % (Auto) 0.7, White Blood Count 7.7, Red Blood Count 4.75, Hemoglobin 14.1, Hematocrit 40.8L, Mean Corpuscular Volume 85.9, Mean Corpuscular Hemoglobin 29.7, Mean Corpuscular Hemoglobin Concent 34.6, Red Cell Distribution Width 12.4, Platelet Count 202, Neutrophils (%) (Auto) 64.7, Lymphocytes (%) (Auto) 19.2L, Monocytes (%) (Auto) 13.7H, Eosinophils (%) (Auto) 1.3, Basophils (%) (Auto) 0.4, Neutrophils # (Auto) 5.0, Lymphocytes # (Auto) 1.5, Monocytes # (Auto) 1.1H, Eosinophils # (Auto) 0.1, Basophils # (Auto) 0.0, Nucleated Red Blood Cells % (auto) 0.0, Anion Gap 6L, Glomerular Filtration Rate > 60.0, Blood Urea Nitrogen 16, Creatinine 0.75, Sodium Level 139, Potassium Level 4.4, Chloride Level 103, Carbon Dioxide Level 30, Calcium Level 8.8, Total Creatine Kinase 60, Magnesium Level 1.9, Creatine Kinase MB 2.2, Creatine Kinase MB Relative Index 3.67, Troponin I 0.42H 07/22/19 14:00: CBC/BMP Laboratory Tests 07/21/19 15:04 Red Blood Count 5.21, Mean Corpuscular Volume 84.6, Mean Corpuscular Hemoglobin 29.4, Mean Corpuscular Hemoglobin Concent 34.7, Red Cell Distribution Width 1 2.6, Neutrophils (%) (Auto) 72.6 H, Lymphocytes (%) (Auto) 14.1 L, Monocytes (%) (Auto) 11.9 H, Eosinophils (%) (Auto) 0.8, Basophils (%) (Auto) 0.2, Neutrophils # (Auto) 7.8, Lymphocytes # (Auto) 1.5, Monocytes # (Auto) 1.3 H, Eosinophils # (Auto) 0.1, Basophils # (Auto) 0.0 07/22/19 06:14 Red Blood Count 4.75, Mean Corpuscular Volume 85.9, Mean Corpuscular Hemoglobin 29.7, Mean Corpuscular Hemoglobin Concent 34.6, Red Cell Distribution Width 12.4, Neutrophils (%) (Auto) 64.7, Lymphocytes (%) (Auto) 19.2 L, Monocytes (%) (Auto) 13.7 H, Eosinophils (%) (Auto) 1.3, Basophils (%) (Auto) 0.4, Neutrophils # (Auto) 5.0, Lymphocytes # (Auto) 1.5, Monocytes # (Auto) 1.1 H, Eosinophils # (Auto) 0.1, Basophils # (Auto) 0.0, Calcium Level 8.8, Total Creatine Kinase 60 Microbiology Microbiology 07/22/19 Gram Stain - Final, Resulted 07/22/19 Sputum Culture, Resulted Pending 07/21/19 Respiratory Virus Panel (PCR) (NATHANIEL) - Final, Complete 07/21/19 Blood Culture, Received Pending 07/21/19 Blood Culture, Received Pending GME ATTESTATION GME ATTESTATION My faculty preceptor for this patient encounter was physically present during the encounter and was fully available. All aspects of the patient interview, examination, medical decision making process, and medical care plan development were reviewed and approved by the faculty preceptor. The faculty preceptor is aware and concurs with the plan as stated in the body of this note and will attest to such by his/her cosignature. ATTENDING NOTE I, Silverio Garay, have independently examined this patient and performed my own physical exam, as well as reviewed the documentation and edited where necessary. I have discussed in detail with the resident / student the findings and plan of treatment as documented by the resident / student and edited their note. I agree with their findings and treatment plan and have edited their documentation. I will continue to follow the patient during this hospital stay. RAFIA RICARDO DO Jul 22, 2019 14:54 SILVERIO GARAY MD Jul 22, 2019 15:19
[2019-07-22 16:00] VITALS: BP 129/89
[2019-07-22] MEDS: ATORVASTATIN 20 MG TAB PO SCH (17:20)
[2019-07-22] MEDS: cefTRIAXone SOD 1 GM in D5W MINI-BAG PLUS 50 ML IV SCH (17:20)
[2019-07-22] MEDS: HEPARIN DRIP 25,000 UNITS in IV 1 EA IV SCH (17:28)
[2019-07-22] MEDS: AZITHROMYCIN INJ 500 MG, VIAL MATE ADAPTER 1 EACH in D5W 250 ML IV SCH (19:47)
[2019-07-22 20:00] VITALS: BP 137/84
[2019-07-22] MEDS: LISINOPRIL 20 MG TAB PO SCH (21:12)
[2019-07-22 23:02] LABS: INR 1.06; PROTHROMBIN TIME 13.5 SECONDS (11.8-14.0)
[2019-07-22 23:03] LABS: PARTIAL THROMBOPLASTIN TIME 53.1 SECONDS (25.0-38.4)
[2019-07-23 00:15] VITALS: BP 145/80
[2019-07-23 04:00] VITALS: BP 139/90
[2019-07-23 05:44] LABS: BASO % 0.4 % (0.0-1.0); EOS # 0.2 10^3/uL (0.0-0.5); EOS % 1.8 % (0.0-3.0); HEMATOCRIT 41.8 % (42.0-52.0); HEMOGLOBIN 14.5 g/dl (13.5-17.5); LYMPH # 2.1 10^3/uL (1.5-5.0); LYMPH % 26.2 % (24.0-44.0); MEAN CORPUSCULAR HEMOGLOBIN 29.6 pg (27.0-33.0); MEAN CORPUSCULAR HGB CONC 34.7 g/dl (32.0-36.5); MEAN CORPUSCULAR VOLUME 85.3 fl (80.0-96.0); MONO # 1.1 10^3/uL (0.0-0.8); MONO % 13.7 % (0.0-5.0); NEUTROPHILS # 4.7 10^3/uL (1.5-8.5); NEUTROPHILS % 57.2 % (36.0-66.0); PLATELET COUNT, AUTOMATED 218 10^3/uL (150-450); WHITE BLOOD COUNT 8.1 10^3/uL (4.0-10.0)
[2019-07-23 06:05] LABS: BLOOD UREA NITROGEN 20 MG/DL (7-18); CALCIUM LEVEL 8.9 MG/DL (8.5-10.1); CARBON DIOXIDE LEVEL 30 MEQ/L (21-32); CHLORIDE LEVEL 105 MEQ/L (98-107); CREATININE FOR GFR 0.76 MG/DL (0.70-1.30); GLOMERULAR FILTRATION RATE > 60.0 (>56); GLUCOSE, FASTING 146 MG/DL (70-100); MAGNESIUM LEVEL 1.7 MG/DL (1.8-2.4); POTASSIUM SERUM 4.2 MEQ/L (3.5-5.1); SODIUM LEVEL 141 MEQ/L (136-145)
--- NOTE | 2019-07-23 06:55 | CR ---
DATE OF CONSULTATION: 07/22/2019 REFERRING PHYSICIAN: Dr. Silverio Mckeon REASON FOR CONSULTATION: Abnormal electrocardiogram (EKG), abnormal troponin. PRIMARY PHYSICIAN: Dr. Jemal Santos HISTORY OF PRESENT ILLNESS: 54-year-old male with a history of hypertension and diabetes mellitus who has been well and very active. He does exercise regularly in one of the [place]. He denies any chest pain on the treadmill and he denies any shortness of breath, but does moderate exercise. He denies any palpitations. He does have a history of intracranial blood clot for which he had had decompression surgery at [facility] years ago and for which he has been on antiseizure meds as a prophylaxis. He denies any history of hyperlipidemia. He came to the hospital. He stated that he has been coughing on and off, but more in the last few days prior to coming to the hospital and he was developing increasing left-sided chest pain. He saw his primary on 07/20/2019 and was given a course of by mouth antibiotics, but did not feel well and came to the hospital for further evaluation. He was found to have an abnormal EKG with a left bundle branch block/IVCD pattern and at one point he was in atrial fibrillation. His serum troponin initially was 0.44 and serum pro-BNP was 536. The case was discussed with the admitting provider and we recommended to admit the patient and continue to trend his serum troponin because it did not seem to be related to an acute coronary syndrome. He was admitted to the progressive care unit (PCU) for further management and monitoring and an echocardiogram done on admission revealed an estimated left ventricle ejection fraction (LVEF) of 45% with probably some moderate calcific aortic stenosis with a mean gradient of 19 mmHg. Otherwise no significant valvular heart disease. There was moderate pulmonary hypertension. When I saw Mr. Adelso Kulkarni this morning, he was sitting in his bed in no acute distress at rest and he stated he feels much better. His WBC is now back to normal. He denies any fever at home. His cough has improved. He has not been ambulating much change since in the hospital. He denies any history of chest pain, palpitations, pedal edema, orthopnea, syncope or near syncope. As mentioned above, he does exercise regularly and uses a treadmill at one of the [facility]. He denies any bleeding. He denies any hemoptysis. He denies any significant weight loss. There is no acute swelling or redness of the joints. PAST MEDICAL HISTORY: Positive as mentioned above for hypertension, diabetes mellitus, and history of intracranial bleed. There is no history of coronary artery disease, prior abnormal EKG, myocardial infarction, congestive heart failure, prior history of atrial fibrillation, prior history of cardiomyopathy, sudden cardiac , or kidney disease. He was told by his primary in the past that he has a heart murmur. PAST SURGICAL HISTORY: Positive for left-sided intracranial surgery done at [facility] for a reported blood clot, but details are not available. 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 About a week ago, he had a right cataract extraction and he was supposed to proceed with a left cataract extraction in about 1-2 weeks. FAMILY HISTORY: Positive for heart disease, but the patient could not elaborate, his father. SOCIAL HISTORY: The patient lives with his . He does not smoke or abuse alcohol. He denies any EtOH abuse. Denies any illicit drugs. ALLERGIES: No known drug allergies. ADVANCED DIRECTIVES: The patient is a full code. MEDICATIONS AT HOME: Lisinopril 10 mg by mouth daily, omeprazole 20 mg by mouth daily, tizanidine 2 mg by mouth at bedtime, doxycycline 100 mg by mouth twice a day for a 10-day course starting on 07/20/2019, valproic acid 500 mg by mouth twice a day, bromfenac sodium 0.075% one drop twice a day started after surgery on 07/14/2019. CURRENT MEDICATIONS: Omeprazole 20 mg by mouth daily, aspirin 325 mg by mouth daily, atorvastatin 80 mg by mouth daily, regular insulin coverage, ibuprofen 600 mg every 6 hours as needed for pain, valproic acid 500 mg by mouth twice a day, lisinopril 20 mg by mouth at bedtime, prednisolone acetate 1% 1 drop three times a day in the right eye, azithromycin 500 mg IV every 24 hours, Tylenol 650 mg every 4 hours as needed for pain or fever, ceftriaxone 1 gram every 24 hours IV, and also on D50 as well as glucose tablet and Glucagon as needed for episodes of hypoglycemia. He is also currently on IV heparin. PHYSICAL EXAMINATION: The patient is alert and oriented, in no acute distress at rest and very pleasant. His vital signs when I saw him earlier this morning revealed a blood pressure of 149/97 with a pulse of 82, respirations 18 and his maximum temperature was 97.4 degrees Fahrenheit with an oxygenation saturation of 100% on room air. When I saw him earlier this evening, his vital signs revealed a blood pressure of 129/89 with a pulse of 84, respirations 19, and his maximum temperature was 98.1 degrees Fahrenheit with an oxygen saturation of 97% on room air. Examination of the Head: Normocephalic, atraumatic. Neck is supple without jugular venous distention (JVD). Lungs did not reveal any wheezing or crackles. The heart examination revealed irregular heart sounds without gallops. The PMI is displaced inferiorly and laterally. There is no rub. There is a systolic murmur grade 3-4/6 over the precordium laterally or at the base of the /aortic valve area with some radiation to the neck. Abdomen is soft and nontender. Bowel sounds are active. Extremities revealed no pedal edema. Peripheral pulses, dorsalis pedis were +2 and equal. Neurological Examination: Negative for focal deficit. LABORATORY DATA: BMP done today revealed a sodium of 139, potassium 4.4, chloride 103, CO2 30, BUN 16, creatinine 0.75, GFR more than 60, fasting glucose 210, calcium 8.8 and magnesium 1.9. Serum magnesium on admission was 1.5. Initial serum troponin was 0.44, then 0.43, then 0.42, and 0.42, respectively #1 to #4. Pro-BNP is 536. Serum TSH was 0.98. Liver enzymes on admission revealed a total bilirubin of 0.7, indirect bilirubin 0.2, AST 30, ALT 54, alkaline phosphatase 185, total protein 7.0, albumin 3.8. CBC done today revealed WBC of 7.7, hemoglobin 14.1, hematocrit 40.8 and platelet 102,000. CBC on admission revealed a WBC of 10.7, otherwise unremarkable. PTT done this afternoon was 30.4. Chest x-ray on admission on 07/21/2019 revealed a right middle lobe infiltrate. Chest CT/CT angio of the chest on 07/21/2019 revealed no pulmonary embolism. There was a right hilar adenopathy measuring 1.0 cm in a short axis. No cardiomegaly. No pericardial effusion. No pleural effusion. There was an infiltrate in the posterior segment of the right upper lobe. Echocardiogram on admission in the emergency room on 07/21/2019 at 14:54:54 revealed atrial fibrillation at 89 beats per minute, isolated PVCs versus aberrant beats, IVCD, mild left axis deviation. No prior at this time for comparison. Echocardiogram done on 07/21/2019 revealed normal left ventricular size with septal wall motion abnormalities and an overall mildly reduced LVEF. There was calcific at least moderate aortic stenosis with a mean gradient reported to be 19 mmHg. Otherwise no significant valvular heart disease. Pulmonary hypertension, moderate, was reported. IMPRESSION: 54-year-old male with history of hypertension, diabetes mellitus and heart murmur who came to the hospital with right-sided chest pain and was found to have pneumonia. Further workup revealed elevated serum pro-BNP and abnormal serum troponin consistent with cardiopathy versus valvular heart disease. His echocardiogram revealed probably mildly depressed global left ventricular systolic function reported as well as at least moderate aortic stenosis. He is doing better and his WBC is now normal. He has not been having any fever. Prior coming to the hospital, he was very active and exercising without any chest pain or significant shortness of breath. I have reviewed his echocardiogram and the left ventricular systolic function seems to be lower. This was discussed with him. He would benefit from a cardiac catheterization to reassess the severity of his aortic stenosis and have a treatment plan. Underlying coronary artery disease also will be ruled out. I believe he most likely will need aortic valve replacement because he has moderate aortic stenosis and LV systolic dysfunction. This was discussed with him as well as his . This also was discussed with his hospitalist. We have started him on IV heparin and he will be on aspirin as well as a statin. He has agreed to proceed with the cardiac catheterization and this will be arranged for him this coming Thursday. The case was discussed with the invasive team in [place]. His telemetry was reviewed and he has an irregular heartbeat and that seems to be at times atrial fibrillation, but at times likely 2:1 AV block and some AV dissociation. He is however asymptomatic and will continue to monitor him on telemetry. He was told that he might also need a permanent pacemaker, but because he is asymptomatic, we will wait for further cardiac evaluation such as his cardiac catheterization and reassessment of his aortic stenosis. It was a pleasure to participate the care of Mr. Adelso Kulkarni for his underlying cardiac condition. I will continue to monitor along with you over the weekend. Please do not hesitate to call if any questions.
[2019-07-23 07:34] VITALS: BP 127/86
[2019-07-23] MEDS: DIVALPROEX 500 MG TAB PO SCH ×2 (08:42→21:40)
[2019-07-23] MEDS: ATORVASTATIN 20 MG TAB PO SCH (08:42)
[2019-07-23] MEDS: ASPIRIN 325 MG TAB PO SCH (08:42)
[2019-07-23] MEDS: OMEPRAZOLE 20 MG CAP PO SCH (08:43)
[2019-07-23] MEDS: IBUPROFEN 600 MG TAB PO PRN ×2 (08:43→17:54)
[2019-07-23] MEDS: HumaLOG INSULIN (NovoLOG) PER UNIT SC SCH ×4 (08:44→21:00)
[2019-07-23] MEDS: prednisoLONE ACET 1% OPHTH SUSP 5ML OD SCH ×3 (08:45→21:39)
--- NOTE | 2019-07-23 10:44 | IPNPDOC ---
Date Seen The patient was seen on 07/23/19. Progress Note SUBJECTIVE: Patient was seen and examined this morning. He has been continued on heparin drip. He currently has no new complaints. He states that his right-sided has improved, although there is some pain. He denies any shortness of breath or chest pain. Overnight the patient had a recorded temperature of 95.5, although this was likely an error as physical temperatures at 97 and higher. There are otherwise no adverse events reported overnight OBJECTIVE PHYSICAL EXAMINATION: VITAL SIGNS: Please see below. GENERAL: Awake, alert and oriented, appears in no acute distress, sitting up comfortably in bed HEENT: Atraumatic and normocephalic Eyes are nonicteric. Trachea is midline CARDIOVASCULAR: 2/6 systolic ejection murmur, normal rate, irregular rhythm. No clicks, rubs RESPIRATORY: Good respiratory effort. Slightly diminished breath sounds bilaterally. No dullness to percussion. No wheezes, rhonchi or rales. ABDOMINAL: Soft, nondistended, no tenderness to palpation in all 4 quadrants. Normoactive bowel sounds throughout EXTREMITIES:. No edema. Full and equal pulses in bilateral upper and lower extremities NEUROLOGICAL:. No focal neurological deficits PSYCHOLOGICAL:. Mood and affect appear appropriate LABORATORY DATA, IMAGING STUDIES, MICROBIOLOGY: Please see below. Echocardiogram: DATE OF STUDY: 07/21/2019 REFERRING PHYSICIAN: Dr. Silverio Garay INDICATION: Chest pain. HEIGHT: 167 cm. WEIGHT: 86 kg. DIMENSIONS: IVS: 1.1 LV: 4.6 LVPW: 1.2 LA: 4.3 Aorta: 3.5 RV: 3.6 Mitral E wave velocity: 115 E prime septal: 7.5 E prime lateral: 13.6 FINDINGS: The study is of difficult technical quality. The patient is in sinus rhythm with wide QRS complex. There is frequent supraventricular ectopy and rate is around 100 beats per minute. Left ventricle is normal size. Mild left ventricular hypertrophy is present. There is septal and apical wall motion abnormality. I suspect that this is principally due to underlying left bundle branch block, even though the extent seems to be little bit bigger than would be expected from conduction abnormality only. Overall left ventricle ejection fraction (LVEF) is going to be mildly reduced. I estimate ejection fraction (EF) around 45%. This is based on somewhat limited visualization. Right ventricle appears normal. Left atrium is at least mildly enlarged. Right atrium appears normal. Aortic valve is heavily calcified. There is almost complete fusion of left and noncoronary cusp by 2-D imaging. I assume at least moderate aortic stenosis. Mitral valve exhibits grossly preserved mobility, even though there are some degenerative abnormalities of mitral leaflets. Tricuspid valve appears normal. Pulmonic valve was not well seen. No pericardial effusion is noted. Inferior vena cava is dilated, but collapses with respiration indicative of likely mildly elevated central venous pressure. Aortic root is normal. Aortic arch was not well seen. Abdominal aorta appears grossly normal. Doppler interrogation of aortic valve reveals probably moderate stenosis. Peak gradient across the valve was 34 mean, gradient 19. Calculated aortic valve area was 1.0 cm2, which probably overestimates the severity of stenosis. There is no significant mitral stenosis or insufficiency. Only mild tricuspid i nsufficiency. Calculated pulmonary artery pressure is in 40s corresponding to moderate pulmonary hypertension. Evaluation of diastolic function is inconclusive. There is only E wave on mitral inflow, I suspect due to first-degree AV block and tachycardia. Tissue Doppler velocities of mitral annulus are relatively preserved though. CONCLUSIONS: 1. Study is of fair technical quality. 2. Normal LV size with septal and apical and distal anterior wall motion abnormality, at least in part due to underlying conduction system disease and overall mildly reduced left ventricular systolic function. 3. Calcific aortic stenosis, at least moderate (mean gradient 19, calculated aortic valve area 1.0 cm squared). 4. No further significant valvular disease. 5. At least mildly elevated central venous pressure. 6. Moderate pulmonary hypertension. 7. Unable to accurately estimate diastolic function. COMMENT: Subacute bacterial endocarditis (SBE) prophylaxis is not recommended. If high suspicion for underlying coronary artery disease, I would have low threshold to pursue coronary angiography and also right and left heart catheterization to reevaluate aortic stenosis. DD: Janki Kwon MD 07/22/19 0542 DT: LYNN 07/22/19 0609 DS: DVT prophylaxis ordered?: Patient currently on heparin drip ASSESSMENT AND PLAN: Patient is a 54-year-old male who presented to [facility] ER with complaint of right-sided chest pain. At the emergency department, patient was found to have a right-sided infiltrate. Initial EKG demonstrated new left bundle-branch block and atrial fibrillation with aberrant conduction. Patient's cardiac markers were elevated and trended overnight, which has plateaued at 0.4. Patient has been seen by cardiology who has contacted [facility] in [place]. Patient is planned to be transferred to [place] on Thursday for cardiac catheterization. Patient is currently continued on heparin drip, aspirin and atorvastatin. He currently has no complaints. He is continued on IV antibiotics for treatment of his right-sided PROBLEMS: 1. Elevated troponin with the left bundle-branch block: -Patient presented with elevated troponin and evidence of a possible new left bundle branch block. His chest pain has resolved. His troponin has been trended and plateaued at 0.4. Patient was seen by Cardiology. [facility] has been contacted with plans to transfer the patient on Thursday for cardiac catheterization. -Patient has received echocardiogram report attached above. -Continue IV heparin drip and high intensity statin -Continue aspirin 324mg -No beta oelg / CCB given high degree AV block 2. Right-sided pulmonary infiltrates, likely community acquired pneumonia -Patient is continued on ceftriaxone and azithromycin, he has noted improvement in his right-sided chest pain. He currently denies any shortness of breath. He states he still has a cough, however, denies any increase in production. Patient has been afebrile. 3. Atrial fibrillation -Patient is asymptomatic. To the patient's knowledge, he has no known history of atrial fibrillation. Patient's CHADSVASC score is 2. Currently he is anticoagulated with heparin drip. Patient will need chronic anticoagulation for his atrial fibrillation 4. Second Degree Mobitz Type 2 AV block -Patient has a second degree type 2 AV block. He has been seen by Cardiology. Consultation is appreciated. Patient will likely need a permanent pacemaker at some point. He is currently asymptomatic. -Patient will remain on telemetry -Patient is currently planned for transfer to [facility] tentatively on Thursday07/25/2019 for cardiac catheterization 5. Hypomagnesemia -Supplement PRN 6. HTN -Continue lisinopril 7. NIDDM2 -Continue sliding scale coverage 8. Hx of intracranial clot -s/p surgical resection, seizure precautions, continue depakote 9. GERD -Continue omeprazole 10. DVT prophylaxis -Patient is currently on heparin drip Disposition: Patient is to be transferred to [facility] for cardiac catheterization on Thursday07/25/19. He will be continued on heparin drip per recommendations of Cardiology VS, I&O, 24H, Fishbone Vital Signs/I&O Vital Signs Date Time Temp Pulse Resp B/P (MAP) Pulse Ox O2 Delivery O2 Flow Rate FiO2 07/23/19 07:34 99.9 85 18 127/86 (100) 98 07/22/19 00:15 Room Air I&O- Last 24 Hours up to 6 AM 07/23/19 06:00 Intake Total 2407 ml Output Total 1600 ml Balance 807 ml Laboratory Data 24H LABS Laboratory Tests 2 07/22/19 14:00: Activated Partial Thromboplast Time 30.4 07/22/19 22:38: Activated Partial Thromboplast Time 53.1H, Prothrombin Time 13.5, Prothromb Time International Ratio 1.06 07/23/19 05:31: Activated Partial Thromboplast Time 78.1H, Immature Granulocyte % (Auto) 0.7, White Blood Count 8.1, Red Blood Count 4.90, Hemoglobin 14.5, Hematocrit 41.8L, Mean Corpuscular Volume 85.3, Mean Corpuscular Hemoglobin 29.6, Mean Corpuscular Hemoglobin Concent 34.7, Red Cell Distribution Width 12.4, Platelet Count 218, Neutrophils (%) (Auto) 57.2, Lymphocytes (%) (Auto) 26.2, Monocytes (%) (Auto) 13.7H, Eosinophils (%) (Auto) 1.8, Basophils (%) (Auto) 0.4, Neutrophils # (Auto) 4.7, Lymphocytes # (Auto) 2.1, Monocytes # (Auto) 1.1H, Eosinophils # (Auto) 0.2, Basophils # (Auto) 0.0, Nucleated Red Blood Cells % (auto) 0.0, Anion Gap 6L, Glomerular Filtration Rate > 60.0, Blood Urea Nitrogen 20H, Creatinine 0.76, Sodium Level 141, Potassium Level 4.2, Chloride Level 105, Carbon Dioxide Level 30, Calcium Level 8.9, Magnesium Level 1.7L CBC/BMP Laboratory Tests 07/23/19 05:31 Red Blood Count 4.90, Mean Corpuscular Volume 85.3, Mean Corpuscular Hemoglobin 29.6, Mean Corpuscular Hemoglobin Concent 34.7, Red Cell Distribution Width 12.4, Neutrophils (%) (Auto) 57.2, Lymphocytes (%) (Auto) 26.2, Monocytes (%) (Auto) 13.7 H, Eosinophils (%) (Auto) 1.8, Basophils (%) (Auto) 0.4, Neutrophils # (Auto) 4.7, Lymphocytes # (Auto) 2.1, Monocytes # (Auto) 1.1 H, Eosinophils # (Auto) 0.2, Basophils # (Auto) 0.0, Calcium Level 8.9 Microbiology Microbiology 07/22/19 Gram Stain - Final, Resulted 07/22/19 Sputum Culture - Preliminary, Resulted Yeast Like Organism 07/21/19 Respiratory Virus Panel (PCR) (NATHANIEL) - Final, Complete 07/21/19 Blood Culture - Preliminary, Resulted No growth after 24 hours . All specim... 07/21/19 Blood Culture - Preliminary, Resulted No growth after 24 hours . All specim... GME ATTESTATION GME ATTESTATION My faculty preceptor for this patient encounter was physically present during the encounter and was fully available. All aspects of the patient interview, examination, medical decision making process, and medical care plan development were reviewed and approved by the faculty preceptor. The faculty preceptor is aware and concurs with the plan as stated in the body of this note and will attest to such by his/her cosignature. ATTENDING NOTE I, Silverio Garay, have independently examined this patient and performed my own physical exam, as well as reviewed the documentation and edited where necessary. I have discussed in detail with the resident / student the findings and plan of treatment as documented by the resident / student and edited their note. I agree with their findings and treatment plan and have edited their documentation. I will continue to follow the patient during this hospital stay. RAFIA RICARDO DO Jul 23, 2019 10:08 SILVERIO GARAY MD Jul 23, 2019 15:30
[2019-07-23] MEDS: HEPARIN DRIP 25,000 UNITS in IV 1 EA IV SCH (10:52)
[2019-07-23 11:45] VITALS: BP 140/84
[2019-07-23 15:23] VITALS: BP 117/78
[2019-07-23] MEDS: cefTRIAXone SOD 1 GM in D5W MINI-BAG PLUS 50 ML IV SCH (17:55)
[2019-07-23 20:00] VITALS: BP 127/87
[2019-07-23] MEDS: AZITHROMYCIN INJ 500 MG, VIAL MATE ADAPTER 1 EACH in D5W 250 ML IV SCH (20:39)
--- NOTE | 2019-07-23 21:08 | ECGEPIP ---
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
--- NOTE | 2019-07-23 21:10 | ECGEPIP ---
[facility] Test Date: 2019-07-22 Pat Name: CORAZON ISRAEL Department: Room: [place] [address] Gender: Male Business And Services Instructor: EJ : 1965 Requested By: WILLIE GARAY Order Number: [id number] Reading MD: Anthony Brewer Measurements Intervals [place] Rate: 72 P: NV: 0 QRS: -19 QRSD: 131 T: 105 QT: 396 QTc: 435 Interpretive Statements ATRIAL FIBRILLATION LEFT BUNDLE BRANCH BLOCK Last 2 tracings on 07/21/19, heart rate is now slower Electronically Signed on 07-23-2019 21:10:17 EDT by Anthony Brewer
[2019-07-23] MEDS: LISINOPRIL 20 MG TAB PO SCH (21:40)
[2019-07-24] VITALS (7 sets, daily range): BP systolic 114–161; BP diastolic 57–95
[2019-07-24] MEDS: HEPARIN DRIP 25,000 UNITS in IV 1 EA IV SCH ×2 (03:24→17:38)
[2019-07-24 06:38] LABS: BASO % 0.6 % (0.0-1.0); EOS # 0.2 10^3/uL (0.0-0.5); EOS % 2.1 % (0.0-3.0); HEMATOCRIT 39.6 % (42.0-52.0); HEMOGLOBIN 13.7 g/dl (13.5-17.5); LYMPH # 1.6 10^3/uL (1.5-5.0); LYMPH % 22.2 % (24.0-44.0); MEAN CORPUSCULAR HEMOGLOBIN 28.7 pg (27.0-33.0); MEAN CORPUSCULAR HGB CONC 34.6 g/dl (32.0-36.5); MONO # 0.9 10^3/uL (0.0-0.8); MONO % 12.6 % (0.0-5.0); NEUTROPHILS # 4.4 10^3/uL (1.5-8.5); NEUTROPHILS % 61.9 % (36.0-66.0); PLATELET COUNT, AUTOMATED 220 10^3/uL (150-450); RED BLOOD COUNT 4.77 10^6/uL (4.30-6.10); WHITE BLOOD COUNT 7.1 10^3/uL (4.0-10.0)
[2019-07-24 07:00] LABS: BLOOD UREA NITROGEN 19 MG/DL (7-18); CALCIUM LEVEL 8.8 MG/DL (8.5-10.1); CARBON DIOXIDE LEVEL 29 MEQ/L (21-32); CHLORIDE LEVEL 106 MEQ/L (98-107); CREATININE FOR GFR 0.66 MG/DL (0.70-1.30); GLOMERULAR FILTRATION RATE > 60.0 (>56); GLUCOSE, FASTING 222 MG/DL (70-100); MAGNESIUM LEVEL 1.7 MG/DL (1.8-2.4); SODIUM LEVEL 139 MEQ/L (136-145)
[2019-07-24] MEDS ORDERED: MAG SULF 1GM/100ML (MAG RUN) 1 GM in IV 1 EA IV ONE (07:15)
[2019-07-24] MEDS: ASPIRIN 325 MG TAB PO SCH (08:05)
[2019-07-24] MEDS: ATORVASTATIN 20 MG TAB PO SCH (08:05)
[2019-07-24] MEDS: OMEPRAZOLE 20 MG CAP PO SCH (08:05)
[2019-07-24] MEDS: DIVALPROEX 500 MG TAB PO SCH ×2 (08:05→20:43)
[2019-07-24] MEDS: HumaLOG INSULIN (NovoLOG) PER UNIT SC SCH ×4 (08:06→22:33)
[2019-07-24] MEDS: prednisoLONE ACET 1% OPHTH SUSP 5ML OD SCH ×3 (08:08→22:33)
--- NOTE | 2019-07-24 08:13 | IPN ---
DATE: 07/23/2019 Mr. Adelso Kulkarni was seen earlier this morning, he was sitting up in bed in no acute distress and his was at bedside. He denies any left-sided chest pain, palpitations, orthopnea or paroxysmal nocturnal dyspnea (PND). He has no pedal edema. He has no focal manifestation. He denies any bleeding. He still has some residual minimal left-sided chest pain. He has some low grade fever earlier this morning. He was initially admitted on 07/21/2019 with right-sided chest pain and was found to have a pneumonia but further cardiac workup revealed findings consistent with congestive heart failure. His echocardiogram revealed a depressed global left ventricular systolic function and at its border aortic stenosis. Upon arrival to the emergency room (ER), he had paroxysmal atrial fibrillation but since then, he has been in a wide complex rhythm with intraventricular conduction delay (IVCD) in the arteriovenous (AV) dissociation. He denies any dizziness or lightheadedness. His serum troponin on admission was normal but remains flat and that was to be most likely related to his underlying valvular heart disease and left ventricular systolic dysfunction/ heart failure. PHYSICAL EXAMINATION: The patient is alert and oriented, in no acute distress and he is vital signs this morning reveal blood pressure of 127/86 with a pulse of 85, respiration 89, maximum temperature was 99.9 degrees Fahrenheit and oxygen saturation of 98% on room air. He had the positive fluid balance of 647 mL for 07/22/2019. Examination of the head: Atraumatic. Neck: Neck is supple and no jugular venous distention (JVD) appreciated but positive bilateral carotid bruits. Lungs: Did not reveal any wheezing or crackles. The heart examination revealed a regular heart sound without gallops. The point of maximum impulse (PMI) is displaced inferiorly and laterally. There is no rub. There is systolic murmur grade 3/6 over the precordium at the base of the /aortic valve area with some radiation to the neck. Abdomen is unremarkable. Extremities reveal no pedal edema. Neurological examination is negative for focal deficit. LABORATORY DATA: CBC done on 07/23/2019 reveal a WBC 73.1, hemoglobin 14.5, hematocrit 41.8 and platelet 218,000. BMP revealed a sodium of 141, potassium 4.2, chloride 105, CO2 30 and BUN 20, creatinine 0.70, GFR more than 60, fasting glucose 146, calcium 8.9. Magnesium is 1.7. PTT is 75.2. Telemetry was reviewed, noted above. IMPRESSION: 1. Heart failure, systolic in nature seems to be well compensated on current meds. 2. Aortic stenosis, at least moderate and he will need further cardiac investigation. A cardiac catheterization is being arranged for him. 3. Atrial fibrillation, paroxysmal in nature. Currently is in irregular rhythm with some intermittent AV dissociation. 4. History of diabetes mellitus. 5. History of hypertension. 6. Pneumonia, being addressed, on IV antibiotics. It was a pleasure to participate in the care of Mr. Adelso Kulkarni for his underlying cardiac condition. His diagnosis and the plan was discussed with him in details as well as his . Case was discussed with hospitalist.
[2019-07-24] MEDS: IBUPROFEN 600 MG TAB PO PRN ×2 (08:31→18:40)
--- NOTE | 2019-07-24 10:11 | IPNPDOC ---
Text Note Date of Service The patient was seen on 07/24/19. NOTE Subjective: Patient was seen and examined at the bedside. Currently patient has had no new events overnight. He denies shortness of breath or palpitations. Patient does report right-sided pleuritic chest pain that has improved, although still persists. He has reported that his cough has become more productive. Denies nausea, vomiting, abdominal pain and has reported normal bowel movement this morning. Objective: Vitals (See below) General: Lying in bed, no acute distress, comfortable, AAOx3 HEENT: NC, AT CVS: +S1S2 Lungs: Fair air entry b/l, -w/r/r Abdomen: Soft, ND, NT Extremities: - Edema, - Calf tenderness Assessment and plan: Elevated troponin with the left bundle-branch block - Patient does not describe any typical chest pain; describes atypical chest pain with pleuritic nature - No associated nausea, vomiting, shortness of breath or dizziness - Troponins have remained stable - Will continue with full anticoagulation with heparin drip, aspirin 325, Lisinopril, Atorvastatin - Will hold off on BB/CCB given high degree AV block - Patient is scheduled for transfer on 07/25/2019 to [facility] for cardiac catheterization - Cardiology on consultation; appreciate their input High degree AV block (Second Degree Mobitz Type 2 AV bloc) / Paroxysmal A. fib - Patient is currently asymptomatic and denies dizziness, shortness of breath or palpitations - Patient remains rate controlled without medications - Avoid CCB / BB - c/w Telemetry - c/w Full anticoagulation with Heparin drip - Patient will be evaluated for possible pacemaker placement at [facility] - Cardiology on consultation; appreciate their input Moderate / Compensated Systolic CHF - No evidence of fluid overload - c/w Telemetry monitoring - Patient will be receiving cardiac catheterization at [facility]; and will be evaluated for possible aortic valve replacement - Cardiology on consultation; appreciate their input Right-sided pulmonary infiltrates, likely community acquired pneumonia - Leukocytosis has improved - Imaging noted to show right-sided infiltrate / lymphadenopathy - Patient is been advised to have repeat imaging upon completion of antibiotic course - c/w Ceftriaxone and Azithromycin Hypomagnesemia - Will supplement HTN - c/w Lisinopril NIDDM2 - c/w ISS Hx of intracranial clot - s/p surgical resection, seizure precautions - c/w Divalproex GERD - c/w Omeprazole DVT prophylaxis - c/w full anticoagulation with Heparin drip Disposition: - Patient will be transferred to [facility] for cardiac catheterization on Thursday07/25/19 - He will be continued on heparin drip on transfer VS,Ayesha, I+O VS, Ayesha, I+O Laboratory Tests 07/24/19 06:27 Red Blood Count 4.77, Mean Corpuscular Volume 83.0, Mean Corpuscular Hemoglobin 28.7, Mean Corpuscular Hemoglobin Concent 34.6, Red Cell Distribution Width 12.4, Neutrophils (%) (Auto) 61.9, Lymphocytes (%) (Auto) 22.2 L, Monocytes (%) (Auto) 12.6 H, Eosinophils (%) (Auto) 2.1, Basophils (%) (Auto) 0.6, Neutrophils # (Auto) 4.4, Lymphocytes # (Auto) 1.6, Monocytes # (Auto) 0.9 H, Eosinophils # (Auto) 0.2, Basophils # (Auto) 0.0, Calcium Level 8.8 Vital Signs Date Time Temp Pulse Resp B/P (MAP) Pulse Ox O2 Delivery O2 Flow Rate FiO2 07/24/19 07:34 98.3 71 18 161/95 (117) 99 07/22/19 00:15 Room Air I&O- Last 24 Hours up to 6 AM 07/24/19 06:00 Intake Total 1449.5 ml Output Total 1800 ml Balance -350.5 ml WILLIE GARAY MD Jul 24, 2019 10:11
--- NOTE | 2019-07-24 14:54 | IPN ---
DATE OF SERVICE: 07/24/2019 AGE: 54. Mr. Adelso Kulkarni was seen earlier today. He was sitting up in his bed in no acute distress at rest. He denies any palpitations, orthopnea, paroxysmal nocturnal dyspnea (PND), left-sided chest pain. He was initially admitted with a right-sided chest pain and was found to have pneumonia. At the same time, he was found to have a significant valvular heart disease, at least moderate aortic stenosis, and the depressed left ventricular ejection fraction (LVEF) by echocardiogram, and he was in heart failure. He has been on intravenous (IV) antibiotics and doing well. There is no report of bleeding. He is on IV heparin. His initial electrocardiogram (EKG) was thought to be related to atrial fibrillation with a rapid ventricular rate. He has no nausea, vomiting, diarrhea, melena, or hematemesis. There is no focal manifestation. For the last 24 hours, the highest temperature was 99.9 degrees Fahrenheit noted on 07/23/2019 at 07:34. On physical examination, the patient is alert and oriented, in no acute distress at rest, and his vital signs this morning reveal blood pressure of 114/75 with a pulse of 72, respiration 18, and his maximum temperature is 98.7 degrees Fahrenheit with an oxygen saturation of 96% on room air. Examination of the head: Atraumatic. Neck is supple with no jugular venous distention (JVD) but with bilateral carotid bruits. The lungs were clear bilaterally on auscultation without any wheezing or crackles. The heart examination revealed an irregular heart sound without gallops. The point of maximal impulse (PMI) is displaced inferiorly and laterally. There is no rub. There is a systolic murmur grade 3/6 over the precordium laterally at the base of the heart with some radiation to the neck/carotid arteries. Abdomen is unremarkable. Extremities reveal no pedal edema. Neurological examination: Is negative for focal deficit. LABORATORIES: Complete blood count (CBC) done today revealed a WBC of 7.1, hemoglobin 13.7, hematocrit 39.6, and platelet 220,000. Basic metabolic profile (BMP) revealed a sodium of 139, potassium 4.0, chloride 106, CO2 29, BUN 19, creatinine 0.66, GFR more than 60 fasting glucose 222, calcium 8.8, magnesium is 1.7. PTT earlier this morning was 96.9. Telemetry was reviewed and revealed episode of first-degree AV block with markedly prolonged OH interval, probably Mobitz 1 and Mobitz 2 second-degree AV block and intermittent AV dissociation with intermittent complete heart block. There is an intraventricular conduction defect (IVCD). IMPRESSION: A 54-year-old male with above medical problems, came to the hospital because of right-sided chest pain, and was found to have pneumonia, but further cardiac workup revealed an abnormal electrocardiogram (EKG) that was initially thought to be atrial fibrillation, and then he continues to have episode of first-degree AV block with markedly prolonged OH interval, Mobitz 1 and Mobitz 2, as well as intermittent third-degree AV block but asymptomatic. His echocardiogram revealed a depressed LVEF estimated at 45% with probably at least moderate aortic stenosis. In view of the depressed LVEF and moderate aortic stenosis in the setting of heart failure, he will be referred for a cardiac catheterization for further evaluation. The case was discussed on Thursday with the invasive team, awaiting for reply to arrange his transfer for tomorrow. This was discussed the patient. He is in agreement. In the meantime, will continue current medications; and once confirmed, will hold lisinopril on 07/25/2019. Upon discharge from [facility], he has agreed to come to the office for followup on his cardiac condition. The case was discussed with his hospitalist.
[2019-07-24] MEDS: cefTRIAXone SOD 1 GM in D5W MINI-BAG PLUS 50 ML IV SCH (17:26)
[2019-07-24] MEDS: AZITHROMYCIN INJ 500 MG, VIAL MATE ADAPTER 1 EACH in D5W 250 ML IV SCH (20:43)
[2019-07-24] MEDS: LISINOPRIL 20 MG TAB PO SCH (20:43)
[2019-07-25] VITALS: BP 131/66
[2019-07-25 04:00] VITALS: BP 117/80
[2019-07-25 06:12] LABS: BASO % 0.5 % (0.0-1.0); EOS # 0.2 10^3/uL (0.0-0.5); EOS % 2.9 % (0.0-3.0); HEMATOCRIT 41.9 % (42.0-52.0); HEMOGLOBIN 14.2 g/dl (13.5-17.5); LYMPH # 1.7 10^3/uL (1.5-5.0); LYMPH % 28.4 % (24.0-44.0); MEAN CORPUSCULAR HEMOGLOBIN 28.7 pg (27.0-33.0); MEAN CORPUSCULAR HGB CONC 33.9 g/dl (32.0-36.5); MEAN CORPUSCULAR VOLUME 84.8 fl (80.0-96.0); MONO # 0.9 10^3/uL (0.0-0.8); MONO % 14.5 % (0.0-5.0); NEUTROPHILS # 3.1 10^3/uL (1.5-8.5); NEUTROPHILS % 52.5 % (36.0-66.0); PLATELET COUNT, AUTOMATED 222 10^3/uL (150-450); RED BLOOD COUNT 4.94 10^6/uL (4.30-6.10); WHITE BLOOD COUNT 5.9 10^3/uL (4.0-10.0)
[2019-07-25 06:14] LABS: BLOOD UREA NITROGEN 19 MG/DL (7-18); CALCIUM LEVEL 8.5 MG/DL (8.5-10.1); CARBON DIOXIDE LEVEL 25 MEQ/L (21-32); CHLORIDE LEVEL 108 MEQ/L (98-107); CREATININE FOR GFR 0.67 MG/DL (0.70-1.30); GLOMERULAR FILTRATION RATE > 60.0 (>56); GLUCOSE, FASTING 200 MG/DL (70-100); MAGNESIUM LEVEL 1.7 MG/DL (1.8-2.4); POTASSIUM SERUM 4.1 MEQ/L (3.5-5.1); SODIUM LEVEL 140 MEQ/L (136-145)
[2019-07-25 08:00] VITALS: BP 131/88
[2019-07-25] MEDS: MAG SULF 1GM/100ML (MAG RUN) 1 GM in IV 1 EA IV SCH ×2 (08:17→10:03)
[2019-07-25] MEDS: ASPIRIN 325 MG TAB PO SCH (08:17)
[2019-07-25] MEDS: DIVALPROEX 500 MG TAB PO SCH (08:18)
[2019-07-25] MEDS: OMEPRAZOLE 20 MG CAP PO SCH (08:18)
[2019-07-25] MEDS: HumaLOG INSULIN (NovoLOG) PER UNIT SC SCH ×2 (08:18→12:00)
[2019-07-25] MEDS: ATORVASTATIN 20 MG TAB PO SCH (08:18)
[2019-07-25] MEDS: prednisoLONE ACET 1% OPHTH SUSP 5ML OD SCH (08:19)
[2019-07-25] MEDS: HEPARIN DRIP 25,000 UNITS in IV 1 EA IV SCH (08:22)
--- NOTE | 2019-07-25 09:11 | IPN ---
DATE: 07/25/2019 Mr. Kulkarni has been feeling well. He tells me that his right-sided chest discomfort almost completely resolved. He denies any dyspnea and denies any sensation of palpitations. Review of telemetry tracing reveals that he has intermittent episodes of AV block of variable degree. There are episodes of first-degree AV block, second degree AV block times two and also episodes of complete AV dissociation. His escape rhythm is always in almost normal range. He never gets profoundly bradycardic and there were no long pauses. On physical exam blood pressure was 117/80, heart rate mostly in 60s. He is afebrile. Saturation 98% on room air. He is weight is 84.6 kg. He is alert and oriented and appropriate. His JVP is not elevated. Lungs are clear. Good air movement. Heart exam reveals irregular rhythm. There is paradoxically splitting second heart sound. There is murmur over the aortic valve about 2-3/6 intensity that is systolic ejection murmur. The second aortic sound is well preserved. Abdomen is soft, nontender. No hepatosplenomegaly. Extremities are free of edema. Peripheral pulses are preserved. Neurologically he is intact. LABORATORY: CBC is normal. Basic metabolic panel is also normal but for glucose 200, magnesium was 1.7 and PTT was 84. ASSESSMENT/PLAN: Mr. Kulkarni is a 54-year-old man who presented four days ago with right-sided chest discomfort and was found to have an infiltrate in right upper lobe by CT. There was no evidence for pulmonary emboli or pericardial effusion. What is most perplexing is the findings of intermittent AV block of variable degrees and also a bundle branch block and aortic stenosis. He also has a wall motion abnormality by echocardiogram and mildly elevated troponin. In my opinion this is less likely to represents coronary artery disease but it certainly needs to be ruled out as the most worrisome possibility. Dr. Brewer already arranged for the patient to be transferred and I reiterated it Dr. Tristan this morning of interventional cardiology in [place]. He needs to be tested for other potential causes of AV block and I will send a Lyme titer. Also should be addressed with him a possibility of HIV infection even though it seems to be less likely. He certainly does not give any historical findings to suggest recent exposure to either.
[2019-07-25] MEDS ORDERED: ATOR1TAB21 PO (09:56)
[2019-07-25] MEDS ORDERED: ASPI-1 PO (09:56)
[2019-07-25] MEDS ORDERED: HEPA1INJ IV (09:59)
[2019-07-25] MEDS ORDERED: CEFT1INJ5 IV (10:01)
[2019-07-25] MEDS ORDERED: AZIT500T2 IV (10:01)
[2019-07-25 12:00] VITALS: BP 142/87
--- NOTE | 2019-07-25 17:58 | DS.PDOC ---
Discharge Summary General Date of Admission Jul 21, 2019 at 18:56 Date of Discharge 07/25/19 Primary Care Physician: TERRA CAGE MD Attending Physician: SILVERIO MCKEON MD Specialist/Consultants Involve: SORAYA MENDEZ MD Discharge Summary PROCEDURES PERFORMED DURING STAY: [None]. ADMITTING DIAGNOSES: 1. Elevated Troponin 2. Right Community Acquired Pneumonia 3. AV dissociation/block 4. HTN 5. NIDDM2 6. GERD DISCHARGE DIAGNOSES: 1. Elevated Troponin 2. Right Community Acquired Pneumonia 3. AV dissociation/block 4. HTN 5. NIDDM2 6. GERD COMPLICATIONS/CHIEF COMPLAINT: Pneumonia. HISTORY OF PRESENT ILLNESS: Patient is a 54 year old male who presented to the [facility] ER with complaint of right sided chest pain. Patient had stated that he developed a dry course over the course of a week. The patient was seen by his PCP prior to admission and was prescribed doxycycline. The patient stated that he went home but the following day developed right sided chest pain. He described his chest pain as a 9/10. He had denied any feeling of chest pressure and stated the pain was located on his right without radiation. In the ER the patient was vitally stable however, his troponin on presentation was elevated. Additionally, his EKG demonstrated a left bundle branch block which was felt to be new. The patient also demonstrated AV chema dissociation and possible Atrial fibrillation. A stat echocardiogram was performed which demonstrated apical and distal anterior wall motion abnormality with overall mildly reduced left ventricular systolic function and moderate aortic stenosis. The patient received a chest x-ray and chest CT which demonstrated a right middle lobe infiltrate. Given the patients elevated troponin Hospitalist service was contacted and the patient was admitted. On admission the patients cardiac marker panel was trended which demonstrated increase in troponin. Cardiology consultation was placed and patient was evaluated. Given the patients elevated troponins he was started on a heparin drip and continued on aspirin 324mg. [facility] was contacted for possible transfer and patient was planned to be transferred for a nonemergent cardiac catheterization. During the course of the patients hospitalization he was continued on IV Azithromycin and Ceftriaxone for right sided community acquired pneumonia. Regarding the patients left bundle branch block and AV dissociation, a lyme titer was ordered to assess for reversible causes. The patient was continued on a heparin drip and was transferred to [facility] for cardiac catheterization DISCHARGE MEDICATIONS: Please see below. ALLERGIES: Please see below. PHYSICAL EXAMINATION ON DISCHARGE: VITAL SIGNS: Please see below. GENERAL: Awake, alert, and oriented. Appears in no acute distress. Lying comfortably in bed. Patient is pleasant and conversive HEENT: Atraumatic normocephalic. Eyes are nonicteric. Trachea is midline. NECK: No palpable cervical, axillary, or supraclavicular lymphadenopathy CARDIOVASCULAR EXAMINATION: 2/6 systolic ejection murmur. No clicks or rubs. RESPIRATORY EXAMINATION: Diminished breath sounds bilaterally. No wheezes, rhonchi or rales ABDOMINAL EXAMINATION: Soft, nondistended. Nontender to palpation in all 4 quadrants. No rebound tenderness or guarding. Normoactive bowel sounds throug hout EXTREMITIES: No edema. Full and equal pulses in bilateral upper and lower extremities SKIN: No rashes or lesions NEUROLOGICAL EXAMINATION: No focal neurological deficits PSYCHIATRIC EXAMINATION: Mood and affect appear appropriate LABORATORY DATA: Please see below. IMAGING: Chest x-ray: Two views. History: New onset hypertension. Comparison study: May 31, 2019 . Findings: The lungs are well inflated and free of infiltrate. The pleural angles are sharp. The heart size is normal. Pulmonary vasculature is not increased. No significant bony abnormality is seen. Monitoring electrodes are seen. Impression: Negative chest x-ray. Electronically Signed by Shahram Barreto MD 07/25/2019 01:[address] brain: 07/25/2019. Indication: Hypertension. Headache. Comparison: None. Technique: Axial images of the brain were obtained from skull base to vertex. Findings: There is no acute intracranial hemorrhage, acute cortical infarction, mass effect or hydrocephalous. The visualized paranasal sinuses and mastoid air cells are clear. Impression: No acute intracranial process. Electronically Signed by Alessandro Hernández DO 07/25/2019 03:05 P PROGNOSIS: Fair ACTIVITY: [As tolerated]. DIET: As tolerated DISCHARGE PLAN: Patient is to be transferred to [facility] for cardiac catheterization. He is to be continued on Heparin Drip on transfer. Continue IV Rocephin and Azithromycin for treatment of his Pneumonia. Patient is to follow-up with his PCP 1-2 weeks after discharge from [facility]. He is to follow-up with Cardiology after discharge from [facility]. DISPOSITION: Xfer To Acute Hosp. DISCHARGE CONDITION: [Stable]. TIME SPENT ON DISCHARGE: Greater than 40 minutes. Vital Signs/I&Os Vital Signs Date Time Temp Pulse Resp B/P (MAP) Pulse Ox O2 Delivery O2 Flow Rate FiO2 07/25/19 12:00 97.0 77 18 142/87 (105) 98 07/22/19 00:15 Room Air I&O- Last 24 Hours up to 6 AM 07/25/19 05:59 Intake Total 2454.5 ml Output Total 3100 ml Balance -645.5 ml Laboratory Data Labs 24H Laboratory Tests 2 07/25/19 05:12: Immature Granulocyte % (Auto) 1.2, White Blood Count 5.9, Red Blood Count 4.94, Hemoglobin 14.2, Hematocrit 41.9L, Mean Corpuscular Volume 84.8, Mean Corpu scular Hemoglobin 28.7, Mean Corpuscular Hemoglobin Concent 33.9, Red Cell Distribution Width 12.4, Platelet Count 222, Neutrophils (%) (Auto) 52.5, Lymphocytes (%) (Auto) 28.4, Monocytes (%) (Auto) 14.5H, Eosinophils (%) (Auto) 2.9, Basophils (%) (Auto) 0.5, Neutrophils # (Auto) 3.1, Lymphocytes # (Auto) 1.7, Monocytes # (Auto) 0.9H, Eosinophils # (Auto) 0.2, Basophils # (Auto) 0.0, Nucleated Red Blood Cells % (auto) 0.0, Activated Partial Thromboplast Time 84.2H, Anion Gap 7L, Glomerular Filtration Rate > 60.0, Blood Urea Nitrogen 19H, Creatinine 0.67L, Sodium Level 140, Potassium Level 4.1, Chloride Level 108H, Carbon Dioxide Level 25, Calcium Level 8.5, Magnesium Level 1.7L 07/25/19 08:48: CBC/BMP Laboratory Tests 07/25/19 05:12 Red Blood Count 4.94, Mean Corpuscular Volume 84.8, Mean Corpuscular Hemoglobin 28.7, Mean Corpuscular Hemoglobin Concent 33.9, Red Cell Distribution Width 12.4, Neutrophils (%) (Auto) 52.5, Lymphocytes (%) (Auto) 28.4, Monocytes (%) (Auto) 14.5 H, Eosinophils (%) (Auto) 2.9, Basophils (%) (Auto) 0.5, Neutrophils # (Auto) 3.1, Lymphocytes # (Auto) 1.7, Monocytes # (Auto) 0.9 H, Eosinophils # (Auto) 0.2, Basophils # (Auto) 0.0, Calcium Level 8.5 Microbiology Microbiology 07/22/19 Gram Stain - Final, Complete 07/22/19 Sputum Culture - Final, Complete Yeast Like Organism 07/21/19 Respiratory Virus Panel (PCR) (NATHANIEL) - Final, Complete 07/21/19 Blood Culture - Preliminary, Resulted No Growth after 72 hours. All specime... 07/21/19 Blood Culture - Preliminary, Resulted No Growth after 72 hours. All specime... Discharge Medications Scheduled Aspirin (Aspirin) 325 Mg Tablet, 325 MG PO DAILY Atorvastatin Calcium (Atorvastatin Calcium) 20 Mg Tablet, 80 MG PO DAILY Azithromycin (Azithromycin) 500 Mg Tablet, 1 TAB IV ASDIRECTED Bromfenac Sodium (Bromsite) 0.075% 5ML Drops, 1 DROP OD BID, (Reported) FOR EYE SURGERY IN RIGHT EYE ON 07/14 Ceftriaxone Sodium (Ceftriaxone) 1 Gm Vial, 1 GM IV ASDIRECTED Divalproex Sodium (Depakote) 500 Mg Tablet.dr, 500 MG PO BID, (Reported) Heparin Sod,Porcine/0.9 % NaCl (Heparin 30,000 Unit/1,000-Ns) 30,000 Unit/1000 Ml Iv.soln, 1 INJ IV ASDIRECTED Titrate as per protocol; see written instructions Lisinopril (Lisinopril) 20 Mg Tablet, 20 MG PO QHS, (Reported) Omeprazole (Omeprazole) 20 Mg Capsule.dr, 20 MG PO DAILY, (Reported) Prednisolone Acetate (Prednisolone Acetate 1% Opth Susp) 5 Ml Drops.susp, 1 DROP OD TID, (Reported) FOR EYE SURGERY ON 07/14 Allergies Coded Allergies: No Known Allergies (Unverified , 07/07/19) GME ATTESTATION GME ATTESTATION My faculty preceptor for this patient encounter was physically present during the encounter and was fully available. All aspects of the patient interview, examination, medical decision making process, and medical care plan development were reviewed and approved by the faculty preceptor. The faculty preceptor is aware and concurs with the plan as stated in the body of this note and will attest to such by his/her cosignature. ATTENDING NOTE I, Silverio Mckeon, have independently examined this patient and performed my own physical exam, as well as reviewed the documentation and edited where necessary. I have discussed in detail with the resident / student the findings and plan of treatment as documented by the resident / student and edited their note. I agree with their findings and treatment plan and have edited their documentation. I will continue to follow the patient during this hospital stay. Time spent on discharge 35 minutes RAFIA RICARDO DO Jul 25, 2019 17:58 SILVERIO MCKEON MD Jul 26, 2019 15:01
[2019-07-27 00:07] LABS: Lyme Disease IgG/IgM Antibodie <0.91 ISR (0.00-0.90); Lyme Disease IgM Ab Quantitati <0.80 index (0.00-0.79)
== END 2019-07-25 14:30 | disposition short-term general hospital (02) | DRG 200 ==
LOC: M ED 14:44 → M ED INP 18:56 → M PCU 20:05
PROVIDERS: ADMIT Internal Medicine; ATTEND Internal Medicine
DX: I35.0 Nonrheumatic aortic (valve) stenosis (principal); J18.9 Pneumonia, unspecified organism; I11.0 Hypertensive heart disease with heart failure; I44.2 Atrioventricular block, complete; I50.22 Chronic systolic (congestive) heart failure; I48.0 Paroxysmal atrial fibrillation; E83.42 Hypomagnesemia; K21.9 Gastro-esophageal reflux disease without esophagitis; E11.9 Type 2 diabetes mellitus without complications; Z86.79 Personal history of other diseases of the circulatory system; Z79.2 Long term (current) use of antibiotics; Z79.899 Other long term (current) drug therapy; Z98.41 Cataract extraction status, right eye; Z86.718 Personal history of other venous thrombosis and embolism; I27.20 Pulmonary hypertension, unspecified

== ENCOUNTER 2019-08-30 08:03 | Emergency (ER) | payer BC ==
[~2019-08-30] VITALS: Ht 167.6 cm; Wt 82.6 kg
[~2019-08-30 08:03] MED LIST changes: +ASPI-1 PO; +ATOR1TAB21 PO; +AZIT500T5 IV; +BROM0.07 OD; +CEFT1INJ5 IV; +DEPA1TAB3 PO; +DOXY100C PO; +HEPA1INJ IV; +LISI-538 PO; +OMEP20CA4 PO; +PREDOPD OD
[2019-08-30] MEDS ORDERED: ISOVUE-370 76% 100ML VIAL (Q9967) As Ordered ONE (08:32)
[2019-08-30 08:40] LABS: BASO # 0.1 10^3/uL (0.0-0.2); BASO % 0.9 % (0.0-1.0); EOS # 0.2 10^3/uL (0.0-0.5); EOS % 3.3 % (0.0-3.0); HEMATOCRIT 39.9 % (42.0-52.0); HEMOGLOBIN 13.7 g/dl (13.5-17.5); LYMPH # 1.5 10^3/uL (1.5-5.0); LYMPH % 28.5 % (24.0-44.0); MEAN CORPUSCULAR HEMOGLOBIN 29.1 pg (27.0-33.0); MEAN CORPUSCULAR HGB CONC 34.3 g/dl (32.0-36.5); MEAN CORPUSCULAR VOLUME 84.7 fl (80.0-96.0); MONO # 0.5 10^3/uL (0.0-0.8); NEUTROPHILS # 3.1 10^3/uL (1.5-8.5); NEUTROPHILS % 56.9 % (36.0-66.0); PLATELET COUNT, AUTOMATED 267 10^3/uL (150-450); RED BLOOD COUNT 4.71 10^6/uL (4.30-6.10); WHITE BLOOD COUNT 5.4 10^3/uL (4.0-10.0)
--- NOTE | 2019-08-30 08:48 | REP ---
CT brain: 08/30/2019. Indication: Stroke. Comparison: None. Technique: Unenhanced axial CT images of the brain were obtained from skull base to vertex. Findings: There is no acute intracranial hemorrhage, acute cortical infarction, mass effect or hydrocephalous. Left frontoparietal craniotomy is noted. Intracranial atherosclerotic disease is present. Diffuse volume loss and chronic left caudate head lacunar infarction is noted. Impression: No acute intracranial process. Left-sided postoperative sequelae and diffuse volume loss. Electronically Signed by Alessandro Hernández DO 08/30/2019 08:39 A
[2019-08-30 08:53] LABS: INR 1.01
[2019-08-30 08:54] LABS: PARTIAL THROMBOPLASTIN TIME 26.9 SECONDS (25.0-38.4)
[2019-08-30] MEDS ORDERED: TRUL10IN SQ (08:57)
[2019-08-30] MEDS ORDERED: LISI-1046 PO (08:57)
[2019-08-30] MEDS ORDERED: FERR32TA PO (08:57)
[2019-08-30] MEDS ORDERED: METO1TAB87 PO (08:57)
[2019-08-30] MEDS ORDERED: FOLI1TAB11 PO (08:57)
[2019-08-30 09:06] LABS: CK-MB VALUE MASS 2.8 NG/ML (<3.6); MB/CK RELATIVE INDEX 4.12 (< OR =4); TROPONIN I 0.24 NG/ML (< 0.10)
[2019-08-30] MEDS ORDERED: ALTEPLASE 100MG INJ (J2997) IV ONE (09:15)
--- NOTE | 2019-08-30 09:27 | REP ---
Intra and extracranial CTA: 08/30/2019. Indication: Stroke. Comparison: None. Technique: High resolution axial images of the intra and extracranial circulations were performed following the IV administration of 100 ml Isovue 370. Coronal, sagittal and 3-D post processing imaging was provided. Findings: There is high-grade stenosis versus occlusion of the most proximal left sylvian branch which demonstrates more distal contrast indicative of collateral flow. No additional areas of intracranial high-grade stenosis or vessel occlusion are present. There is no evidence of intracranial aneurysm or AVM. There is no extracranial ICA hemodynamically significant stenosis by NASCET criteria. There is mild atherosclerotic narrowing of the carotid bulbs bilaterally. The vertebral arteries are patent. There is an incompletely evaluated calcified left nasal cavity/maxillary, mass. Impression: High grade stenosis versus occlusion of proximal left and two segment as described. No hemodynamically significant extracranial ICA stenosis by NASCET criteria. Incompletely evaluated partially calcified left nasal cavity/maxillary, mass. Please correlate with direct inspection. Electronically Signed by Alessandro Hernández DO 08/30/2019 09:19 A
[2019-08-30] MEDS ORDERED: ALTEPLASE RECOMBINANT IV ONE (10:00)
[2019-08-30] MEDS ORDERED: SODIUM CHLORIDE 0.9% 50 ML IV ONE (10:15)
[2019-08-30 10:38] VITALS: BP 115/71
--- NOTE | 2019-08-30 23:44 | ECGEPIP ---
[facility] - ED Test Date: 2019-08-30 Pat Name: CORAZON ISRAEL Department: Room: - Gender: Male Coat [place]eller: TC : 1965 Requested By: Linda Rooney Order Number: [id number] Reading MD: Trevor Torres Measurements Intervals [place] Rate: 87 P: 96 TX: 176 QRS: 261 QRSD: 170 T: 62 QT: 408 QTc: 492 Interpretive Statements ELECTRONIC ATRIAL PACEMAKER ELECTRONIC VENTRICULAR PACEMAKER RHYTHM CHANGE COMPARED TO 07/22/19 Electronically Signed on 08-30-2019 23:44:14 EST by Trevor Torres
== END 2019-08-30 10:46 | disposition short-term general hospital (02) ==
LOC: M ED 08:03
DX: I63.9 Cerebral infarction, unspecified (principal); R29.704 NIHSS score 4; E11.9 Type 2 diabetes mellitus without complications; I10 Essential (primary) hypertension; E78.9 Disorder of lipoprotein metabolism, unspecified; Z86.79 Personal history of other diseases of the circulatory system; G40.909 Epilepsy, unspecified, not intractable, without status epilepticus; Z79.899 Other long term (current) drug therapy; Z79.84 Long term (current) use of oral hypoglycemic drugs
CPT/HCPCS: 70450; 70496; 70498; 80047; 82550; 82553; 84484; 85025; 85610; 85730; 86850; 86900; 86901; 93005; 93041; 94760; 96365; 99291; J2997; Q9967

== ENCOUNTER 2019-09-29 14:00 | Outpatient (RCR) | payer BC ==
[~2019-09-29 14:00] MED LIST changes: +FERR32TA PO; +FOLI1TAB11 PO; +LISI-1046 PO; +METO1TAB87 PO; +OMEP-172 PO; -OMEP20CA4 PO; +TRUL10IN SQ
== END 2019-10-11 ==
LOC: M ST 14:00
PROVIDERS: ATTEND Family Medicine
DX: Z86.73 Personal history of transient ischemic attack (TIA), and cerebral infarction without residual deficits (principal)

== ENCOUNTER 2019-10-13 13:57 | Outpatient (RCR) | payer BC ==
[~2019-10-13 13:57] MED LIST changes: -OMEP-172 PO; +OMEP1CAP73 PO
== END 2019-11-11 ==
LOC: M ST 13:57
PROVIDERS: ATTEND Family Medicine
DX: R29.810 Facial weakness (principal); R29.702 NIHSS score 2; R40.2141 Coma scale, eyes open, spontaneous, in the field [EMT or ambulance]; R40.2251 Coma scale, best verbal response, oriented, in the field [EMT or ambulance]; I63.412 Cerebral infarction due to embolism of left middle cerebral artery; I48.91 Unspecified atrial fibrillation

== ENCOUNTER → 2020-03-16 | Outpatient (REF) | payer BC ==
[~2020-03-16] MED LIST changes: -LISI-1046 PO; +LISI2.5T2 PO
[2020-03-16 18:04] LABS: ALBUMIN 3.7 GM/DL (3.2-5.2); ALT/SGPT 60 U/L (12-78); BILIRUBIN,TOTAL 0.8 MG/DL (0.2-1.0); BLOOD UREA NITROGEN 25 MG/DL (7-18); CALCIUM LEVEL 9.2 MG/DL (8.5-10.1); CARBON DIOXIDE LEVEL 28 MEQ/L (21-32); CHLORIDE LEVEL 102 MEQ/L (98-107); CHOLESTEROL LEVEL 113 MG/DL (<200); CHOLESTEROL RISK RATIO 2.017 (<5); GLOMERULAR FILTRATION RATE > 60.0 (>56); GLUCOSE, FASTING 284 MG/DL (70-100); HDL CHOLESTEROL 56 MG/DL (>40); LDL CHOLESTEROL 42 MG/DL (<100); NON-HDL-C 57 MG/DL; POTASSIUM SERUM 4.7 MEQ/L (3.5-5.1); SODIUM LEVEL 138 MEQ/L (136-145); TOTAL PROTEIN 6.5 GM/DL (6.4-8.2); TRIGLYCERIDES LEVEL 75 MG/DL (<150)
[2020-03-16 18:28] LABS: HEMOGLOBIN A1c 9.1 %
[2020-03-16 18:56] LABS: CREATININE, URINE 99.8 MG/DL; MALB URINE SIEMENS 30.5 MG/L; MAU/CREAT RATIO 30.5 MCG/MG (0.0-30.0)
== END ==
LOC: M SFHCPLAZ 15:39
PROVIDERS: ATTEND Physician Assistant
DX: E11.65 Type 2 diabetes mellitus with hyperglycemia (principal); E78.2 Mixed hyperlipidemia; Z12.5 Encounter for screening for malignant neoplasm of prostate
CPT/HCPCS: 36415; 80053; 80061; 82043; 83036; G0103

== ENCOUNTER → 2020-07-10 | Outpatient (CLI) | payer BC ==
[2020-07-10 19:03] LABS: HEMOGLOBIN A1c 7.1 %
[2020-07-10 20:21] LABS: BLOOD UREA NITROGEN 21 MG/DL (7-18); CALCIUM LEVEL 9.4 MG/DL (8.5-10.1); CARBON DIOXIDE LEVEL 28 MEQ/L (21-32); CHLORIDE LEVEL 104 MEQ/L (98-107); GLOMERULAR FILTRATION RATE > 60.0 (>56); GLUCOSE, FASTING 169 MG/DL (70-100); POTASSIUM SERUM 4.8 MEQ/L (3.5-5.1); SODIUM LEVEL 137 MEQ/L (136-145)
== END ==
LOC: M PLALAB 15:00
PROVIDERS: ATTEND Physician Assistant
DX: E11.9 Type 2 diabetes mellitus without complications (principal)

== ENCOUNTER 2021-08-12 10:31 | Emergency (ER) | payer BC ==
[~2021-08-12] VITALS: Ht 167.6 cm; Wt 82.2 kg
[~2021-08-12 10:31] MED LIST changes: -DOXY100C PO; +DOXY100C3 PO; -LISI-538 PO; +LISI10TA22 PO; -LISI10TA4 PO; -LISI2.5T2 PO; +LISI2.5T9 PO; +LISI20TA33 PO
--- OUTSIDE RECORDS SUMMARY | 2021-08-12 10:42 | CCD ---
Author Author [facility] Organization [facility] Address Unknown Phone Unavailable Care Team Providers Care Tele Tech Name Role Phone Nadira Feliciano Unavailable PROBLEMS Type Condition ICD9-CM Code [id number] Code Onset Dates Condition S tatus W/U Status Risk SNOMED Code Notes Problem Type 2 diabetes mellitus wit h hyperglycemia, without long-term current use of insulin E11.65 Active confirmed 37042304 Problem Migraine with aura and with status migrainosus, not intractable G43.101 Active confirmed 3665766 Problem Aortic heart murmur I35.8 Active confirmed 276056150 Problem Mixed hyperlipidemia E78.2 Active confirmed 767343370 Problem Essential hypertension I10 Active confirmed 61239821 Problem Age-related nuclear cataract, left eye H25.12 A ctive confirmed 329054688702531 Problem Gastroesophageal reflux disease with esophagitis K 21.0 Active confirmed 703002807 Problem 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 L97.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 Active confirmed 100148007 Problem Type 2 diabetes mellitus with other skin ulcer E11 .622 Active confirmed 380772517 Problem Left acute arterial ischemic stroke, MCA (middle cerebral artery) I63.512 Active confirmed 551620605 Problem Aortic valve replaced Z95.2 Active confirmed 1731360627205 ALLERGIES Allergen (clinical drug ingredient) Drug/Non Drug Allergy do cumented on EMR Reaction Allergy Type Onset Date Status seasonal Sinus Pressure Non Drug Allergy Acti ve ENCOUNTERS from 1965 to 2021-06-07 Encounter Location Date Provider Diagnosis [address] [phone] [place] [address] May, Nadira Feliciano IMMUNIZATIONS No Information SOCIAL HISTORY Tobacco Use: Social History Observation Description Date Details (start date - stop date) Never Smoker Sex Assigned At : Social History Observation Description Sex Assigned At Unknown Education: Question Answer Notes Level of Education: College Audit Question Answer Notes Total Score: 0 Interpretation: Alcohol Education Language: Question Answer Notes Languages spoken: American Zoroastrian: Question Answer Notes Zoroastrian No sabianist beliefs that would impact health care. Drug and Alcohol Question Answer Notes Total Score: 0 Interpretation: No problems reported Alcohol Screening: Question Answer Notes Did you have a drink containing alcohol in the past year? No Points 0 Interpretation Negative Tobacco Use: Question Answer Notes Are you a: never smoker REASON FOR REFERRAL No Information VITAL SIGNS No information MEDICATIONS Medication SIG (Take, Route, Frequency, Duration) Notes Start Da te End Date Status Doxycycline Hyclate 100 MG 1 capsule Orally bid for 10 day(s) May, Not-Taking Clopidogrel Bisulfate 75 MG TAKE ONE TABLET BY MOUTH EVERY DAY Oral Active glipiZIDE ER 5 MG 2 tablets with food in the m orning and 1 tablet with food at night Orally as directed for 90 days Active predniSONE 20 MG 1 tablet Orally twice a day Not-Taking metFORMIN HCl ER 500 MG 4 tablet with evening meal Orally Once a day Not-Taking Metoprolol Tartrate 25 MG TAKE ONE HALF TABLET BY MOUT H TWICE A DAY Oral Twice a day for 90 days Active Calcium 1 tab Oral Active Lisinopril 2.5 MG 1 tablet Orally Once a day for 30 Days Active Aspirin 81 81 MG 1 tablet Orally Once a day Not-Taking Flonase Allergy Relief 50 MCG/ACT 1 spray in each nost ril Nasally Once a day for 30 day(s) Not-Taking tiZANidine HCl 2 MG 1 tablet as needed Orally Three times a day for 90 days Mar, Active Atorvastatin Calcium 80 MG 1 tablet Orally Once a day for 90 days Active Multivitamin Adult - Orally Acti ve Eliquis 5 MG as directed Orally twice a day for 90 days Active Omeprazole 10 MG 1 capsule Orally Once a day Active Divalproex Sodium 500 MG 1 tablet Orally bid for 90 days Active Trulicity 0.75 MG/0.5ML as directed Subcutaneous weekly Mar, Not-Taking Cetirizine HCl 10 MG 1 tablet Orally Once a day Not-Taking Osteo Bi-Flex Adv Double St - Orally Not-Taking Januvia 100 MG 1 tablet Orally Once a day Jul, Not-Taking PROCEDURES No Information RESULTS No Results REASON FOR VISIT sinus pressure, clogged ears MEDICAL (GENERAL) HISTORY Type Description Date Medical History 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 etiolo gy Medical History Arthritis Medical History Hypertension Medical History GERD Medical History 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 Medical History migraine with aura Medical History Diabetes Medical History MCA stroke 08/2019 Surgical History Craniectomy for cerebral hemorrhage 04/30 02 Surgical History Leg Tumor Removal; 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5 MG 1 tablet Orally Once a day for 30 Days tiZANidine HCl 2 MG 1 tablet as needed Orally Three times a day for 90 days Mar, Atorvastatin Calcium 80 MG 1 tablet Orally Once a day for 90 day s Eliquis 5 MG as directed Orally twice a day for 90 days Divalproex Sodium 500 MG 1 tablet Orally bid for 90 days glipiZIDE ER 5 MG 2 tablets with food in the m orning and 1 tablet with food at night Orally as directed for 90 days Insurance Providers Payer Name Payer Address Payer Phone Insured Name Patient Relati onship to Insured Coverage Start Date Coverage End Date BCBS LAURI DIXON PPO [id number] [facility] [employer] [place] [id number] CORAZON ISRAEL
--- OUTSIDE RECORDS SUMMARY | 2021-08-12 10:43 | CCD ---
Author Author [facility] Address Unknown Phone Unavailable Care Team Providers Care Retail Cashier Associate Name Role Phone SORAYA MENDEZ MD Unavailable Unavailable SORAYA MENDEZ MD Unavailable Unavailable SORAYA MENDEZ MD Unavailable Unavailable SORAYA MENDEZ MD Unavailable Unavailable SORYAA MENDEZ MD Unavailable Unavailable SORAYA MENDEZ MD Unavailable Unavailable SORAYA MENDEZ MD Unavailable Unavailable SORAYA MENDEZ MD Unavailable Unavailable SORAYA MENDEZ MD Unavailable Unavailable SORAYA MENDEZ MD Unavailable Unavailable SORAYA MENDEZ MD Unavailable Unavailable SORAYA MENDEZ MD Unavailable Unavailable SORAYA MENDEZ MD Unavailable Unavailable SORAYA MENDEZ MD Unavailable Unavailable SORAYA MENDEZ MD Unavailable Unavailable SORAYA MENDEZ MD Unavailable Unavailable SORAYA MENDEZ MD Unavailable Unavailable SORAYA MENDEZ MD Unavailable Unavailable SORAYA MENDEZ MD Unavailable Unavailable SORAYA MENDEZ MD Unavailable Unavailable SORAYA MENDEZ MD Unavailable Unavailable SORAYA MENDEZ MD Unavailable Unavailable SORAYA MENDEZ MD Unavailable Unavailable SORAYA MENDEZ MD Unavailable Unavailable SORAYA MENDEZ MD Unavailable Unavailable SORAYA MENDEZ MD Unavailable Unavailable SORAYA MENDEZ MD Unavailable Unavailable ANDREA, LIRA MD Unavailable Unavailable ANDREA, LIRA MD Unavailable Unavailable ANDREA, LIRA MD Unavailable Unavailable ANDREA, LIRA MD Unavailable Unavailable ANDREA, LIRA MD Unavailable Unavailable ANDREA, LIRA MD Unavailable Unavailable ANDREA, LIRA MD Unavailable Unavailable ANDREA, LIRA MD Unavailable Unavailable ANDREA, LIRA MD Unavailable Unavailable ANDREA, LIRA MD Unavailable Unavailable ANDREA, LIRA MD Unavailable Unavailable ANDREA, LIRA MD Unavailable Unavailable ANDREA, ILRA MD Unavailable Unavailable ANDREA, LIRA MD Unavailable Unavailable ANDREA, LIRA MD Unavailable Unavailable ANDREA, LIRA MD Unavailable Unavailable ANDREA, LIRA MD Unavailable Unavailable ANDREA, LIRA MD Unavailable Unavailable ANDREA, LIRA MD Unavailable Unavailable ANDREA, LIRA MD Unavailable Unavailable ANDREA, LIRA MD Unavailable Unavailable ANDREA, LIRA MD Unavailable Unavailable ANDREA, LIRA MD Unavailable Unavailable ANDREA, LIRA MD Unavailable Unavailable ANDREA, LIRA MD Unavailable Unavailable ANDREA, LIRA MD Unavailable Unavailable ANDREA, LIRA MD Unavailable Unavailable ANDREA, LIRA MD Unavailable Unavailable RYNE, PARVEEN MD Unavailable Unavailable RYNE, PARVEEN MD Unavailable Unavailable RYNE, PARVEEN MD Unavailable Unavailable RYNE, PARVEEN MD Unavailable Unavailable RYNE, PARVEEN MD Unavailable Unavailable RYNE, PARVEEN MD Unavailable Unavailable RYNE, PARVEEN MD Unavailable Unavailable RYNE, PARVEEN MD Unavailable Unavailable RYNE, PARVEEN MD Unavailable Unavailable RYNE, PARVEEN MD Unavailable Unavailable RYNE, PARVEEN MD Unavailable Unavailable RYNE, PARVEEN MD Unavailable Unavailable RYNE, PARVEEN MD Unavailable Unavailable RYNE, PARVEEN MD Unavailable Unavailable RYNE, APRVEEN MD Unavailable Unavailable RYNE, PARVEEN MD Unavailable Unavailable RYNE, PARVEEN MD Unavailable Unavailable RYNE, PARVEEN MD Unavailable Unavailable RYNE, PARVEEN MD Unavailable Unavailable RYNE, PARVEEN MD Unavailable Unavailable RYNE, PARVEEN MD Unavailable Unavailable RYNE, PARVEEN MD Unavailable Unavailable RYNE, PARVEEN MD Unavailable Unavailable RYNE, PARVEEN MD Unavailable Unavailable RYNE, PARVEEN MD Unavailable Unavailable RYNE, PARVEEN MD Unavailable Unavailable RYNE, PARVEEN MD Unavailable Unavailable RYNE, PARVEEN MD Unavailable Unavailable RYNE, PARVEEN MD Unavailable Unavailable RYNE, PARVEEN MD Unavailable Unavailable RYNE, PARVEEN MD Unavailable Unavailable RYNE, PARVEEN MD Unavailable Unavailable RYNE, PARVEEN MD Unavailable Unavailable RYNE, PARVEEN MD Unavailable Unavailable RYNE, PARVEEN MD Unavailable Unavailable RYNE, PARVEEN MD Unavailable Unavailable RYNE, PARVEEN MD Unavailable Unavailable RYNE, PARVEEN MD Unavailable Unavailable RYNE, PARVEEN MD Unavailable Unavailable RNYEPARVEEN Unavailable Unavailable RYNEPARVEEN Unavailable Unavailable RYNE, PARVEEN Unavailable Unavailable RYNE, PARVEEN Unavailable Unavailable Re-disclosure Warning The records that you are about to access may contain information from federally-assisted alcohol or drug abuse programs. If such information is present, then the following federally mandated warning applies: This information has been disclosed to you from records protected by federal confidentiality rules (42 CFR part 2). The federal rules prohibit you from making any further disclosure of this information unless further disclosure is expressly permitted by the written consent of the person to whom it pertains or as otherwise permitted by 42 CFR part 2. A general authorization for the release of medical or other information is NOT sufficient for this purpose. The Federal rules restrict any use of the information to criminally investigate or prosecute any alcohol or drug abuse patient.The records that you are about to access may contain highly sensitive health information, the redisclosure of which is protected by Article 27-F of the [facility] Public Health law. If you continue you may have access to information: Regarding HIV / AIDS; Provided by facilities licensed or operated by the [facility] Office of Mental Health; or Provided by the [facility] Office for People With Developmental Disabilities. If such information is present, then the following [facility] mandated warning applies: This information has been disclosed to you from confidential records which are protected by state law. State law prohibits you from making any further disclosure of this information without the specific written consent of the person to whom it pertains, or as otherwise permitted by law. Any unauthorized further disclosure in violation of state law may result in a fine or longterm sentence or both. A general authorization for the release of medical or other information is NOT sufficient authorization for further disc losure. Family History Family Member Name Family Member Gender Family Member Status Date o f Status Description Data Source(s) Unknown Unknown Problem [facility] ([facility]) father,paternal uncle Unknown Unknown Problem [facility] ([facility] Encounters Encounter Providers Location Date Indications Data Source(s ) Outpatient Attender: SORAYA ROJO.YANG-[email or web address].YANG 12:00:00 AM EDT - 07/24/2021 04:03:12 PM EDT [facility] [address] [facility] [address] 06/06/2021 12:00:00 AM EDT [facility] Outpatient [email or web address] 05/24/2021 10:50:53 AM EDT [facility] Outpatient [email or web address] 02/25/2021 01:31:35 PM EDT [facility] Unknown [address] [facility] [address] 02/19/2021 12:00:00 AM EDT eCW1 ([facility]) Outpatient [email or web address] 01/31/2021 09:23:11 AM EDT [facility] Unknown [address] [address] 01/18/2021 12:00:00 AM EDT eCW1 ([facility]) Outpatient [email or web address] 10/29/2020 08:14:24 AM EST [facility] Unknown [address] [address] 09/28/2020 12:00:00 AM EST eCW1 ([facility]) [place] [address] [address] 09/27/2020 12:00:00 AM EST eCW1 ([facility]) [place] [address] [facility] [address] 09/26/2020 12:00:00 AM EST eCW1 ([facility]) [place] [address] [facility] [address] 09/24/2020 12:00:00 AM EST eCW1 ([facility]) [place] [address] [facility] [address] 08/29/2020 12:00:00 AM EST eCW1 ([facility]) Outpatient Attender: PARVEEN MICHELE MD Main office - [facility] 08/07/2020 12:30:00 PM EDT MEDENT ([facility]) Outpatient [email or web address] 07/19/2020 10:30:22 AM EDT [facility] Outpatient Attender: SORAYA MENDEZ MDReferrer: SORAYA PainterYANG-SJP 07/18/2020 01:21:29 PM EDT - 07/18/2020 02:16:27 PM EDT [facility] Outpatient Attender: SORAYA [email or web address] 0 12:00:00 AM EDT - 07/18/2020 02:17:17 PM EDT [facility] [place] [address] [facility] [address] 07/17/2020 12:00:00 AM EDT eCW1 ([facility]) [place] [address] [facility] [address] 07/16/2020 12:00:00 AM EDT eCW1 ([facility]) Immunizations Vaccine Date Status Description Data Source(s) COVID-19 VACCINE [facility] 01/11/2021 12:00:00 AM EDT completed [facility] Vaccine Series Complete: YESThis Data wa s Submitted to [facility] Via [employer]. COVID-19 VACCINE Pfizer 12/21/2020 12:00:00 AM EST completed [facility] Vaccine Series Complete: NOThis Data was Submitted to [facility] Via [employer]. Medications Medication Brand Name Start Date Product Form Dose Route Admi nistrative Instructions Pharmacy Instructions Status Indications Reaction Description Data Source(s) 500 mg 07/18/2021 12:00:00 AM EDT tablet 40 TAKE ONE TABLET BY MOUTH FOUR TIMES A DAY TAKE ONE TABLET BY MOUTH FOUR TIMES A DAY SOLD: 07/19/2021 [facility] 80 mg 02/20/2021 12:00:00 AM EDT tablet 90 TAKE ONE TABLET BY MOUTH EVERY DAY TAKE ONE TABLET BY MOUTH EVERY DAY SOLD: 02/25/2021 [facility] 500 mg 02/20/2021 12:00:00 AM EDT tablet,delayed release (DR/EC) 180 TAKE ONE TABLET BY MOUTH TWICE A DAY TAKE ONE TABLET BY MOUTH TWICE A DAY SOLD: 02/25/2021 [facility] 5 mg 02/20/2021 12:00:00 AM EDT tablet 180 TAKE ONE TABLET BY MOUTH TWICE A DAY DIRECTED TAKE ONE TABLET BY MOUTH TWICE A DAY DIRECTED SOLD: 02/25/2021 [facility] tizanidine 2 MG Oral Tablet TIZANIDINE HCL 02/20/2021 12:00:00 AM E DT tablet 270 TAKE ONE TABLET BY MOUTH THREE TIMES A D AY NEEDED TAKE ONE TABLET BY MOUTH THREE TIMES A DAY NEEDED SOLD: 05/22/2021 [facility] 80 mg 02/20/2021 12:00:00 AM EDT tablet 90 TAKE ONE TABLET BY MOUTH EVERY DAY TAKE ONE TABLET BY MOUTH EVERY DAY SOLD: 05/22/2021 [facility] 25 mg 02/20/2021 12:00:00 AM EDT tablet 90 TAKE ONE-HALF TABLET BY MOUTH TWICE A DAY TAKE ONE-HALF TABLET BY MOUTH TWICE A DAY SOLD: 05/22/2021 [facility] tizanidine 2 MG Oral Tablet TIZANIDINE HCL 02/20/2021 12:00:00 AM E DT tablet 270 TAKE ONE TABLET BY MOUTH THREE TIMES A D AY NEEDED TAKE ONE TABLET BY MOUTH THREE TIMES A DAY NEEDED SOLD: 02/25/2021 [facility] 5 mg 02/20/2021 12:00:00 AM EDT tablet 180 TAKE ONE TABLET BY MOUTH TWICE A DAY DIRECTED TAKE ONE TABLET BY MOUTH TWICE A DAY DIRECTED SOLD: 05/22/2021 [facility] 500 mg 02/20/2021 12:00:00 AM EDT tablet,delayed release (DR/EC) 180 TAKE ONE TABLET BY MOUTH TWICE A DAY TAKE ONE TABLET BY MOUTH TWICE A DAY SOLD: 05/22/2021 [facility] 25 mg 02/20/2021 12:00:00 AM EDT tablet 90 TAKE ONE-HALF TABLET BY MOUTH TWICE A DAY TAKE ONE-HALF TABLET BY MOUTH TWICE A DAY SOLD: 02/25/2021 [facility] 5 mg 01/19/2021 12:00:00 AM EDT tablet extended release 24hr 270 TAKE TWO TABLETS BY MOUTH EVERY MORNING WITH FOOD AND ONE TABLET BY MOUTH AT NIGHT WITH FOOD DIRECTED TAKE TWO TABLETS BY MOUTH EVERY MORNING WITH FOOD AND ONE TABLET BY MOUTH AT NIGHT WITH FOOD DIRECTED SOLD: 01/24/2021 [facility] 5 mg 01/19/2021 12:00:00 AM EDT tablet extended release 24hr 270 TAKE TWO TABLETS BY MOUTH EVERY MORNING WITH FOOD AND ONE TABLET BY MOUTH AT NIGHT WITH FOOD DIRECTED TAKE TWO TABLETS BY MOUTH EVERY MORNING WITH FOOD AND ONE TABLET BY MOUTH AT NIGHT WITH FOOD DIRECTED SOLD: 05/22/2021 [facility] atorvastatin 80 MG Oral Tablet atorvastatin (LIPITOR) 80 MG tablet atorvastatin (LIPITOR) 80 MG tablet 12/25/2020 12:00:00 AM EDT 80 mg Oral active Take 80 mg by mouth daily [facility] 500 mg 09/27/2020 12:00:00 AM EST tablet,delayed release (DR/EC) 60 TAKE ONE TABLET BY MOUTH TWICE A DAY TAKE ONE TABLET BY MOUTH TWICE A DAY SOLD: 10/30/2020 [facility] 500 mg 09/27/2020 12:00:00 AM EST tablet,delayed release (DR/EC) 60 TAKE ONE TABLET BY MOUTH TWICE A DAY TAKE ONE TABLET BY MOUTH TWICE A DAY SOLD: 12/27/2020 [facility] 500 mg 09/27/2020 12:00:00 AM EST tablet,delayed release (DR/EC) 60 TAKE ONE TABLET BY MOUTH TWICE A DAY TAKE ONE TABLET BY MOUTH TWICE A DAY SOLD: 01/25/2021 [facility] 500 mg 09/27/2020 12:00:00 AM EST tablet,delayed release (DR/EC) 60 TAKE ONE TABLET BY MOUTH TWICE A DAY TAKE ONE TABLET BY MOUTH TWICE A DAY SOLD: 11/29/2020 [facility] 500 mg 09/27/2020 12:00:00 AM EST tablet,delayed release (DR/EC) 60 TAKE ONE TABLET BY MOUTH TWICE A DAY TAKE ONE TABLET BY MOUTH TWICE A DAY SOLD: 09/28/2020 [facility] 5 mg 08/30/2020 12:00:00 AM EST tablet 60 TAKE ONE TABLET BY MOUTH TWICE A DAY TAKE ONE TABLET BY MOUTH TWICE A DAY SOLD: 11/29/2020 [facility] 5 mg 08/30/2020 12:00:00 AM EST tablet 60 TAKE ONE TABLET BY MOUTH TWICE A DAY TAKE ONE TABLET BY MOUTH TWICE A DAY SOLD: 01/25/2021 [facility] 25 mg 08/30/2020 12:00:00 AM EST tablet 30 TAKE 1/2 TABLET BY MOUTH TWO TIMES A DAY TAKE 1/2 TABLET BY MOUTH TWO TIMES A DAY SOLD: 12/27/2020 [facility] 2.5 mg 08/30/2020 12:00:00 AM EST tablet 30 TAKE ONE TABLET BY MOUTH EVERY DAY TAKE ONE TABLET BY MOUTH EVERY DAY SOLD: 08/31/2020 [facility] 25 mg 08/30/2020 12:00:00 AM EST tablet 30 TAKE 1/2 TABLET BY MOUTH TWO TIMES A DAY TAKE 1/2 TABLET BY MOUTH TWO TIMES A DAY SOLD: 09/28/2020 [facility] 5 mg 08/30/2020 12:00:00 AM EST tablet 60 TAKE ONE TABLET BY MOUTH TWICE A DAY TAKE ONE TABLET BY MOUTH TWICE A DAY SOLD: 09/28/2020 [facility] 25 mg 08/30/2020 12:00:00 AM EST tablet 30 TAKE 1/2 TABLET BY MOUTH TWO TIMES A DAY TAKE 1/2 TABLET BY MOUTH TWO TIMES A DAY SOLD: 08/31/2020 [facility] 25 mg 08/30/2020 12:00:00 AM EST tablet 30 TAKE 1/2 TABLET BY MOUTH TWO TIMES A DAY TAKE 1/2 TABLET BY MOUTH TWO TIMES A DAY SOLD: 10/25/2020 [facility] 2.5 mg 08/30/2020 12:00:00 AM EST tablet 30 TAKE ONE TABLET BY MOUTH EVERY DAY TAKE ONE TABLET BY MOUTH EVERY DAY SOLD: 12/27/2020 [facility] 2.5 mg 08/30/2020 12:00:00 AM EST tablet 30 TAKE ONE TABLET BY MOUTH EVERY DAY TAKE ONE TABLET BY MOUTH EVERY DAY SOLD: 10/30/2020 [facility] 5 mg 08/30/2020 12:00:00 AM EST tablet 60 TAKE ONE TABLET BY MOUTH TWICE A DAY TAKE ONE TABLET BY MOUTH TWICE A DAY SOLD: 12/27/2020 [facility] 5 mg 08/30/2020 12:00:00 AM EST tablet 60 TAKE ONE TABLET BY MOUTH TWICE A DAY TAKE ONE TABLET BY MOUTH TWICE A DAY SOLD: 10/30/2020 [facility] 25 mg 08/30/2020 12:00:00 AM EST tablet 30 TAKE 1/2 TABLET BY MOUTH TWO TIMES A DAY TAKE 1/2 TABLET BY MOUTH TWO TIMES A DAY SOLD: 11/29/2020 [facility] 2.5 mg 08/30/2020 12:00:00 AM EST tablet 30 TAKE ONE TABLET BY MOUTH EVERY DAY TAKE ONE TABLET BY MOUTH EVERY DAY SOLD: 09/28/2020 [facility] 5 mg 08/30/2020 12:00:00 AM EST tablet 60 TAKE ONE TABLET BY MOUTH TWICE A DAY TAKE ONE TABLET BY MOUTH TWICE A DAY SOLD: 08/31/2020 [facility] 2.5 mg 08/30/2020 12:00:00 AM EST tablet 30 TAKE ONE TABLET BY MOUTH EVERY DAY TAKE ONE TABLET BY MOUTH EVERY DAY SOLD: 11/29/2020 [facility] 25 mg 08/30/2020 12:00:00 AM EST tablet 30 TAKE 1/2 TABLET BY MOUTH TWO TIMES A DAY TAKE 1/2 TABLET BY MOUTH TWO TIMES A DAY SOLD: 01/24/2021 [facility] 2.5 mg 08/30/2020 12:00:00 AM EST tablet 30 TAKE ONE TABLET BY MOUTH EVERY DAY TAKE ONE TABLET BY MOUTH EVERY DAY SOLD: 01/25/2021 [facility] 80 mg 08/29/2020 12:00:00 AM EST tablet 30 TAKE ONE TABLET BY MOUTH EVERY DAY TAKE ONE TABLET BY MOUTH EVERY DAY SOLD: 11/29/2020 [facility] 80 mg 08/29/2020 12:00:00 AM EST tablet 30 TAKE ONE TABLET BY MOUTH EVERY DAY TAKE ONE TABLET BY MOUTH EVERY DAY SOLD: 01/25/2021 [facility] atorvastatin 80 MG Oral Tablet ATORVASTATIN CALCIUM 08/29/2020 1 2:00:00 AM EST tablet 30 TAKE ONE TABLET BY MOUTH EVERY D AY TAKE ONE TABLET BY MOUTH EVERY DAY SOLD: 08/31/2020 [facility] 80 mg 08/29/2020 12:00:00 AM EST tablet 30 TAKE ONE TABLET BY MOUTH EVERY DAY TAKE ONE TABLET BY MOUTH EVERY DAY SOLD: 12/27/2020 [facility] 80 mg 08/29/2020 12:00:00 AM EST tablet 30 TAKE ONE TABLET BY MOUTH EVERY DAY TAKE ONE TABLET BY MOUTH EVERY DAY SOLD: 10/30/2020 [facility] 80 mg 08/29/2020 12:00:00 AM EST tablet 30 TAKE ONE TABLET BY MOUTH EVERY DAY TAKE ONE TABLET BY MOUTH EVERY DAY SOLD: 09/28/2020 [facility] 5 mg 07/17/2020 12:00:00 AM EDT tablet extended release 24hr 270 TAKE TWO TABLETS BY MOUTH EVERY MORNING WITH FOOD AND 1 EVERY EVENING WITH FOOD TAKE TWO TABLETS BY MOUTH EVERY MORNING WITH FOOD AND 1 EVERY EVENING WITH FOOD SOLD: 10/25/2020 [facility] 5 mg 07/17/2020 12:00:00 AM EDT tablet extended release 24hr 270 TAKE TWO TABLETS BY MOUTH EVERY MORNING WITH FOOD AND 1 EVERY EVENING WITH FOOD TAKE TWO TABLETS BY MOUTH EVERY MORNING WITH FOOD AND 1 EVERY EVENING WITH FOOD SOLD: 07/20/2020 [facility] 5 mg 06/23/2020 12:00:00 AM EDT tablet extended release 24hr 90 TAKE TWO TABLETS BY MOUTH EVERY MORNING AND TAKE ONE TABLET BY MOUTH EVERY EVENING TAKE TWO TABLETS BY MOUTH EVERY MORNING AND TAKE ONE TABLET BY MOUTH EVERY EVENING SOLD: 06/25/2020 [facility] 5 mg 06/19/2020 12:00:00 AM EDT tablet 60 TAKE ONE TABLET BY MOUTH TWICE A DAY TAKE ONE TABLET BY MOUTH TWICE A DAY SOLD: 06/22/2020 [facility] 5 mg 06/19/2020 12:00:00 AM EDT tablet 60 TAKE ONE TABLET BY MOUTH TWICE A DAY TAKE ONE TABLET BY MOUTH TWICE A DAY SOLD: 07/31/2020 [facility] 2 mg 06/18/2020 12:00:00 AM EDT tablet 90 TAKE ONE TABLET BY MOUTH THREE TIMES A DAY NEEDED FOR PAIN TAKE ONE TABLET BY MOUTH THREE TIMES A D AY NEEDED FOR PAIN SOLD: 06/22/2020 [facility] tizanidine 2 MG Oral Tablet TIZANIDINE HCL 06/18/2020 12:00:00 AM EDT tablet 90 TAKE ONE TABLET BY MOUTH THREE TIMES A DAY NEEDED F OR PAIN TAKE ONE TABLET BY MOUTH THREE TIMES A DAY NEEDED FOR PAIN SOLD: 10/25/2020 [facility] 500 mg 12/29/2019 12:00:00 AM EDT tablet,delayed release (DR/EC) 60 TAKE ONE TABLET BY MOUTH EVERY 12 HOURS TAKE ONE TABLET BY MOUTH EVERY 12 HOURS SOLD: 08/31/2020 [facility] 500 mg 12/29/2019 12:00:00 AM EDT tablet,delayed release (DR/EC) 60 TAKE ONE TABLET BY MOUTH EVERY 12 HOURS TAKE ONE TABLET BY MOUTH EVERY 12 HOURS SOLD: 07/31/2020 [facility] 500 mg 12/29/2019 12:00:00 AM EDT tablet,delayed release (DR/EC) 60 TAKE ONE TABLET BY MOUTH EVERY 12 HOURS TAKE ONE TABLET BY MOUTH EVERY 12 HOURS SOLD: 06/25/2020 [facility] atorvastatin 80 MG Oral Tablet Atorvastatin Calcium 80 MG Oral Tablet (LIPITOR) Atorvastatin Calcium 80 MG Oral Tablet (LIPITOR) 09/02/2019 12:00:00 AM EST 80 mg Oral active Take 1 tablet by mouth e very evening [facility] Divalproex Sodium 500 MG Delayed Release Oral Tablet Divalproex Sodium 500 MG Oral Tablet Delayed Release (DEPAKOTE) Divalproex Sodium 500 MG Oral Tablet Delayed Release (DEPAKOTE) 09/02/2019 12:00:00 AM EST 500 mg Oral active Take 1 tablet by mouth every 12 (twelve) hours [facility] Metoprolol Tartrate 25 MG Oral Tablet Ri toprolol Tartrate 25 MG Oral Tablet (LOPRESSOR) Metoprolol Tartrate 25 MG Oral Tablet (LOPRESSOR) 08/13 12:00:00 AM EST 12.5 mg Oral active Take 0.5 tablets by mouth Two Times Daily [facility] 75 mg 09/02/2019 12:00:00 AM EST tablet 30 TAKE ONE TABLET BY MOUTH EVERY DAY TAKE ONE TABLET BY MOUTH EVERY DAY SOLD: 07/31/2020 [facility] atorvastatin 80 MG Oral Tablet ATORVASTATIN CALCIUM 09/02/2019 1 2:00:00 AM EST tablet 30 TAKE ONE TABLET BY MOUTH EVERY E VENING TAKE ONE TABLET BY MOUTH EVERY EVENING SOLD: 06/25/2020 [facility] 75 mg 09/02/2019 12:00:00 AM EST tablet 30 TAKE ONE TABLET BY MOUTH EVERY DAY TAKE ONE TABLET BY MOUTH EVERY DAY SOLD: 06/25/2020 [facility] atorvastatin 80 MG Oral Tablet ATORVASTATIN CALCIUM 09/02/2019 1 2:00:00 AM EST tablet 30 TAKE ONE TABLET BY MOUTH EVERY E VENING TAKE ONE TABLET BY MOUTH EVERY EVENING SOLD: 07/31/2020 [facility] 0.5 ML dulaglutide 1.5 MG/ML Auto-Inject or Dulaglutide (TRULICITY) 0.75 MG/0.5ML SOPN Dulaglutide (TRULICITY) 0.75 MG/0.5ML SOPN 0.75 mg Subcu taneous aborted Inject 0.75 mg under the skin on a week on Thursday [facility] Insurance Providers Payer name Policy type / Coverage type Policy ID Covered libertarian ID Covered libertarian's relationship to [place] Policy [place] Plan Information BCBS [place] PPO 302/307 [id number] SP [id number] [facility] [id number] [place] [id number] EXCELLUS BCBS [id number] xxxxxxxxxxxx [id number] EXCELLUS H [id number] Self [id number] [employer]BS [place] PPO 302/307 [id number] SP [id number] [place] P[place] 302/307 [id number] SP [id number] ANSI-Not a Secondary Insurance [id number] ANSI-Not a Secondary Insurance [id number] ANSI-Not a Secondary Insurance [id number] ANSI-Not a Secondary Insurance [id number] ANSI-Not a Secondary Insurance [id number] ANSI-Not a Secondary Insurance [id number] ANSI-Not a Secondary Insurance [id number] ANSI-Not a Secondary Insurance [id number] ANSI-Not a Secondary Insurance [id number] ANSI-Not a Secondary Insurance [id number] ANSI-Not a Secondary Insurance [id number] ANSI-Not a Secondary Insurance [id number] ANSI-Not a Secondary Insurance [id number] ANSI-Not a Secondary Insurance [id number] ANSI-Not a Secondary Insurance [id number] ANSI-Not a Secondary Insurance [id number] ANSI-Not a Secondary Insurance [id number] ANSI-Not a Secondary Insurance [id number] ANSI-Not a Secondary Insurance [id number] ANSI-Not a Secondary Insurance [id number] ANSI-Not a Secondary Insurance [id number] ANSI-Not a Secondary Insurance [id number] ANSI-Not a Secondary Insurance [id number] ANSI-Not a Secondary Insurance [id number] ANSI-Not a Secondary Insurance [id number] ANSI-Not a Secondary Insurance [id number] ANSI-Not a Secondary Insurance [id number] ANSI-Not a Secondary Insurance [id number] ANSI-Not a Secondary Insurance [id number] [id number] ANSI-Not a Secondary Insurance [id number] [employer] B [id number] ANSI-Not a Secondary Insurance [id number] ANSI-Not a Secondary Insurance [id number] ANSI-Not a Secondary Insurance [id number] [employer] [id number]..[id number] 1767.2530.0 Self [id number] [employer] [id number] ..[id number] 1767.2530.0 Self [id number] [employer] [id number] ..[id number]. 1767.2530.0 Self [id number] [employer] [id number] [id number]. 1767.2530.0 Self [id number] [employer] [id number]. 1767.2530.0 Self [id number] [employer] [id number] 1767.2530.0 Self [id number] BC/BS Of [facility] Part B [id number] Self [employer] (HMO) [id number] Se lf BCBS of [facility] Other 0 [id number] Self 0 SELF PAY ONLY [id number] SP [id number] [employer] [place] PPO 302/307 [id number] SP [id number] [place] [place] PPO 302/307 [id number] SP [id number] [employer] [place] [id number] S [id number] Problems, Conditions, and Diagnoses Code Display Name Description Problem Type Effective Dates Data Source(s) E78.5 Hyperlipidemia, unspecified Hyperlipidemia, unspecifie d Diagnosis 07/24/2021 03:11:37 PM EDT [facility] K21.9 Gastro-esophageal reflux disease without esophagitis Gastro-esophageal reflux disease without Diagnosis 07/24/2021 03:11:37 PM EDT [facility] M19.90 Unspecified osteoarthritis, unspecified site Unspecified osteoarthritis, unspecified Diagnosis 07/24/2021 03:11:37 PM EDT [facility] S06.5X9A Traumatic subdural hemorrhag e with loss of consciousness of unspecified duration, initial encounter Traumatic subdural hemorrhage with loss Diagnosis 07/24/2021 03:11:37 PM EDT [facility] E11.65 Type 2 diabetes mellitus with hyperglyce valarie Type 2 diabetes mellitus with hyperglyce Diagnosis 07/24/2021 03:11:37 PM EDT [facility] Z95.0 Presence of cardiac pacemaker Presence of cardiac pace maker Diagnosis 07/24/2021 03:11:37 PM EDT [facility] I10 Essential (primary) hypertension Essential (primary) h ypertension Diagnosis 07/24/2021 03:11:37 PM EDT [facility] I35.0 Nonrheumatic aortic (valve) stenosis Nonrheumati c aortic (valve) stenosis Diagnosis 07/24/2021 03:11:37 PM EDT [facility] I42.9 Cardiomyopathy, unspecified Cardiomyopathy, unspecifie d Diagnosis 07/24/2021 03:11:37 PM EDT [facility] I63.512 Cerebral infarction due to u nspecified occlusion or stenosis of left middle cerebral artery Cerebral infarction due to unspecified o Diagnosis 07/18/2020 01:21:58 PM EDT [facility] E78.5 HLD (hyperlipidemia) HLD (hyperlipidemia) [id number] 07/24/2021 12:00:00 AM EDT [facility] K21.9 GERD (gastroesophageal reflux disease) G ERD (gastroesophageal reflux disease) [id number] 07/24/2021 12:00:00 AM EDT [facility] M19.90 Arthritis Arthritis [id number] 07/24/2021 12:00:00 AM ED T [facility] H25.12 [id number] Age-related nuclear cataract, left eye Problem 09/10/2020 12:00:00 AM EST eCW1 ([facility]) Surgeries/Procedures Procedure Description Date Indications Data Source(s) ECG ROUTINE ECG W/LEAST 12 LDS W/I&R <td>POCT AMB EKG</td><td>Routine</td><td>07/24/2021 5:58 PM EDT</td><td> Cardiomyopathy, unspecified type Essential hypertension Status cardiac pacemaker</td><td> </td> 07/24/2021 05:58:00 PM EDT Status cardiac pacemakerEssential hypert ensionCardiomyopathy, unspecified type [facility] Status cardiac pacemaker Essential hypertension Cardiomyopathy, unspecified type Results ID Date Data Source [id number] 09/25/2020 12:00:00 AM EST [facility] Name Value Range Interpretation Code Description Data Shiloh rce(s) Supporting Document(s) SARS-CoV-2 (COVID-19) RNA [Presence] in Respiratory specimen by BRIANNE with probe detection [facility] This lab was ordered by [facility] and reported by [facility]. ID Date Data Source [id number] 07/18/2020 09:45:33 PM EDT [facility] Name Value Range Interpretation Code Description Data Shiloh rce(s) Supporting Document(s) &PDF [facility] XISIOd0iKqXUZrSu81/RIXjtQYOgm8HnSGxvLVm1PCxvCGUxA7AawLquGLEBQqRMAOxVAYxXX2PKAZTP 0b3 [file] freight breaker+79tumWbCJcpVV+W30EIPMG9vbWMqsboqcmoZEIfh3UbtlSE0WsLk49XDG7FIuQJiuT9tl8pMKLEQ [file] AgICAgICAgICAgICAgICAgICAgICAgICAgICAgICAgICAgICAgICAgICAgICAgICAgICAgICAgICAgIC AgICAgICAgICAgICANCiAgICAgICAgICAgICAgICAgICAgICAgICAgICAgICAgICAgICAgICAgICAgIC AgICAgICAgICAgICAgICAgICAgICAgICAgICAgICAg ICAgICAgICAgICAgICAgICAgICAgICANCiAgICAgICAgICAgICAgICAgICAgICAgICAgICAgICAgICAg ICAgICAgICAgICAgICAgICAgICAgICAgICAgICAgICAgICAgICAgICAgICAgICAgICAgICAgICAgICAg ICAgICANCiAgICAgICAgICAgICAgICAgICAgICAgIC AgICAgICAgICAgICAgICAgICAgICAgICAgICAgICAgICAgICAgICAgICAgICAgICAgICAgICAgICAgIC AgICAgICAgICAgICAgICANCiAgICAgICAgICAgICAgICAgICAgICAgICAgICAgICAgICAgICAgICAgIC AgICAgICAgICAgICAgICAgICAgICAgICAgICAgICAg ICAgICAgICAgICAgICAgICAgICAgICAgICANCiAgICAgICAgICAgICAgICAgICAgICAgICAgICAgICAg ICAgICAgICAgICAgICAgICAgICAgICAgICAgICAgICAgICAgICAgICAgICAgICAgICAgICAgICAgICAg ICAgICAgICANCiAgICAgICAgICAgICAgICAgICAgIC AgICAgICAgICAgICAgICAgICAgICAgICAgICAgICAgICAgICAgICAgICAgICAgICAgICAgICAgICAgIC AgICAgICAgICAgICAgICAgICANCiAgICAgICAgICAgICAgICAgICAgICAgICAgICAgICAgICAgICAgIC AgICAgICAgICAgICAgICAgICAgICAgICAgICAgICAg ICAgICAgICAgICAgICAgICAgICAgICAgICAgICANCiAgICAgICAgICAgICAgICAgICAgICAgICAgICAg ICAgICAgICAgICAgICAgICAgICAgICAgICAgICAgICAgICAgICAgICAgICAgICAgICAgICAgICAgICAg ICAgICAgICAgICANCiAgICAgICAgICAgICAgICAgIC AgICAgICAgICAgICAgICAgICAgICAgICAgICAgICAgICAgICAgICAgICAgICAgICAgICAgICAgICAgIC AgICAgICAgICAgICAgICAgICAgICANCjw/gOGrE4tevTDbtaJ1M3mzWc0TOo6LXL7ro8QmKHRuRSsmph HuXhiUDhZrYYFrJgrONlf5JLmfRM5PkJKmG9PuB0Qw ZUboCO8IRZLtRVUpoWOjBHZzXQPoMsO9VVGdHBxtLH0QmSOaLPqhJYSiMPSdGpEfTOImSTGlXXByZA7Q VFEgJ434xfHuVj1KVh2TCzTxBW8sqq1IVwFzXIYwZycQLwv0RSmzNL8PhKDuI9CggRRla5cCGrTsO1WR XQInJQGdBo5RPXNyDiFdYIRzTVnhWH6lTOJxQENLdF uhdiS7YX6HEJ9vsrNuER3QBzLuRt4dWb3IEmDqH1TzK9WcQEYyUMCDRXjfGA7DQEApLBN2SHBfIPMwTQ YZIuZmD64kWT7JC9Pqp91eJpP5KWNfUcObQEnjYQ37tLxndlNbzJCuvDheZP0KUb6+DQplbmRvYmoNCn ggNUUWNhZuDbFIJeEeUWAaZFSiBNVwWiV6EwUyRg8A NSVcWKLtBZZkMwRlUXOhDMQzOIrtUDVqAGj3Wjc1OYOiNHEvNT6UIwRvKZLmFOO6EsVvNFToWCHclo8Y EEGqUAAbQJS7BMMwDZKhZHXjQHjcFWZyUIFdHZRpPGCoVSClOI9YGiIcTLQpKLS2RkMhDZOsZRLjss7M RBUjPDOvChA0GVShUHNzCQPiFVywLRAwZDY3QYG1VS XlYEXtOG3XBaDoLPLgRHm7VkieLMOwQFEiwp1UAGTpKMVsOvm7KZXpVVHpFXGwVDzeIZQfPRD5IWYhNS ScJUReER9EYcLzFJXmOUgjOHscOLYdWVBxuk1BWQWzUVBbWID1JEHwREPvFBLySJfcHVNvCOSfFbBnYW NdHJJmBV7HJsCxKXEmDTE5LKRkDFNpHCOmjp5VSXOw EFTuICVqQSQlCFGzJJZtMJlpKPFrKCU1AZn6CXQpZRRtFB6GDnZcVOIxTRD3MNQvJCZtOTKdze3JHUBc XNSvCvKkGXVzJQYfCBIhRIjxFZFjFVP7BgN1NXQkAXKlVF4YYcMpNDAfUBE7LWTfKUFlGIXwad9AYNXo PSNuXlL1TLDtCVNcYDYjTFljAUYwMBU3GWE5IDHgWB YeZO4RAkLiVADkBRu7NVEgKGTrKPUadz7GWZPvJZHtVoV7MaKoRPKkCRTeJTsgVZUyJJU9GOP7HQEzCL RrWM6PXoDfXHCuYnI1PqOxOYKhZWRhmt5VADMfQVN4QKq3AdGaDRHaEWRqPAspLJLvDXL0VeB5SHVaMH MlZG3DTxIbXXNpBhO8IPsmNZVjCDDhnc0ZWWYwWBZ6 LiohTyWeOBVuJJMxDIidGXSwOUx9MFh7QLPiTIGtFG1GNkRjXKSgTUw7QVqbZPByLXNxsd9WONLgXJF5 VMFgETIjUSLrPMOuQLzgCWFoSFJoExnlKCZzDBHyVB8SCjKfBZltTEXGGpq8IScsJ0b9ELDwCz6DA7Bc k2QtJwQhKAXZEJdiQU7fhqMyMCDwFm0QW1qBPls4AH PaNLPgIqxoEsLuGPUiSNR7PZcjJVZrXRLoWmMiTS7cTBv7ICWrUCEoYBPrNeCgUYJ0RsucVAF9WaVmX2 W9CcP6YlFjQD8JAc2SPhZ4XVU3yLIlOq6ROVBpJZE7OFuyHUTNGc1M Procedure Social History Code Duration Value Status Description Data Source(s ) Alcohol intake 07/24/2021 12:00:00 AM EDT Ex-drinker (finding) comp leted Ex- drinker (finding) [facility] Vital Signs ID Date Data Source UNK Name Value Range Interpretation Code Description Data Source(s) Systolic blood pressure 135 mm[Hg] 135 mm[Hg] [facility] Diastolic blood pressure 85 mm[Hg] 85 mm[Hg] [facility] Body weight 83.915 kg 83.915 kg [facility] Body mass index (BMI) [Ratio] 29.86 kg/m2 29.86 kg/m2 [facility] Oxygen saturation in Arterial blood by Pulse oximetry 98 % 98 % [facility] Heart rate 82 /min 82 /min [facility] Body height 167.6 cm 167.6 cm [facility] Patient Treatment Plan of Care Planned Activity Planned Date Details Description Data Source (s) atorvastatin 80 MG Oral Tablet 12/25/2020 12:00:00 AM EDT [facility] Metoprolol Tartrate 25 MG Oral Tablet 09/02/2019 12:00:00 AM [facility] Divalproex Sodium 500 MG Delayed Release Oral Tablet 019 12:00:00 AM [facility] atorvastatin 80 MG Oral Tablet 09/02/2019 12:00:00 AM [facility] 0.5 ML dulaglutide 1.5 MG/ML Auto-Injector [facility]
[2021-08-12] MEDS ORDERED: ATOR80TA59 (10:54)
[2021-08-12] MEDS ORDERED: GLIP5TAB20 (10:54)
[2021-08-12] MEDS ORDERED: ELIQ5TAB (10:54)
[2021-08-12] MEDS ORDERED: TIZA2TA (10:54)
--- OUTSIDE RECORDS SUMMARY | 2021-08-12 16:11 | CCD ---
Author Author [facility] Address Unknown Phone Unavailable Care Team Providers Care Structural Steel Equipment Erector Name Role Phone SORAYA MENDZE MD Unavailable Unavailable SORAYA MENDEZ MD Unavailable [...] Unavailable RYNE, PARVEEN MD Unavailable Unavailable RYNE, PARVENE MD Unavailable Unavailable RYNE, PARVEEN MD Unavailable Unavailable RYNE, PARVEEN MD Unavailable Unavailable RYNE, PARVEEN MD Unavailable Unavailable RYNE, PARVEEN MD Unavailable Unavailable RYNE, PARVEEN MD Unavailable Unavailable RYNEPARVEEN Unavailable Unavailable RYNEPARVEEN Unavailable Unavailable RYNE, PARVEEN [...] is protected by Article 27-F of the [facility] Public Health law. If you continue you may have access to information: Regarding HIV / AIDS; Provided by facilities licensed or operated by the [facility] Office of Mental Health; or Provided by the [facility] Office for People With Developmental Disabilities. If such information is present, then the following [facility] mandated warning applies: This information has been [...] law may result in a fine or prison sentence or both. A general authorization for [...] AM EDT - 07/24/2021 04:03:12 PM EDT [facility] Unknown [address] [facility] [address] 06/06/2021 12:00:00 AM EDT eCW1 ([facility] Outpatient SJP.CT-SJP.SYR 05/24/2021 10:50:[address] [facility] Outpatient SJP.CT-SJP.SYR 02/25/2021 01:31:[address] [facility] Unknown [address] [facility] [address] 02/19/2021 12:00:00 AM EDT eCW1 ([facility] Outpatient SJP.CT-SJP.SYR 01/31/2021 09:23:[address] [facility] [place] [address] [facility] [address] 01/18/2021 12:00:00 AM EDT eCW1 ([facility] Outpatient SJP.CT-SJP.SYR 10/29/2020 08:14:[address] [facility] Unknown [address] [facility] [address] 09/28/2020 12:00:00 AM EST eCW1 ([facility]) Unknown [address] [address] 09/27/2020 12:00:00 AM EST eCW1 ([facility]) Unknown [address] [address] 09/26/2020 12:00:00 AM EST eCW1 ([facility]) Unknown [address] [address] 09/24/2020 12:00:00 AM EST eCW1 ([facility]) Unknown [address] [address] 08/29/2020 12:00:00 AM EST eCW1 ([facility]) Outpatient Attender: PARVEEN MICHELE MD Main office - [facility] 08/07/2020 12:30:00 PM EDT MEDENT ([facility] sam, BELLA) Outpatient [email or web address]-[email or web address] 07/19/2020 10:30:[address] [facility] Outpatient Attender: SORAYA MENDEZ MDReferrer: SORAYA PainterYANG-SJP 07/18/2020 01:21:29 PM EDT - 07/18/2020 02:16:27 PM EDT [facility] Outpatient Attender: SORAYA HUBERYANG-SJP.YANG 0 12:00:00 AM EDT - 07/18/2020 02:17:17 PM EDT [facility] Unknown [address] [address] 07/17/2020 12:00:00 AM EDT eCW1 ([facility]) Unknown [address] [facility] [address] 07/16/2020 12:00:00 AM EDT eCW1 ([facility]) Immunizations Vaccine Date Status Description Data Source(s) COVID-19 VACCINE [facility] 01/11/2021 12:00:00 AM EDT completed [facility] Vaccine Series Complete: YESThis Data wa s Submitted to [facility] Reviewer. COVID-19 VACCINE Pfizer 12/21/2020 12:00:00 AM EST completed [facility] Vaccine Series Complete: NOThis Data was Submitted to [facility] [employer] Reviewer. Medications Medication Brand Name Start Date Product [...] active Take 80 mg by mouth daily [facility] 500 mg 09/27/2020 12:00:00 AM EST [...] 1 tablet by mouth e very evening [facility] Divalproex Sodium 500 MG Delayed Release Oral Tablet Divalproex Sodium 500 MG Oral Tablet Delayed Release (DEPAKOTE) Divalproex Sodium 500 MG Oral Tablet Delayed Release (DEPAKOTE) 09/02/2019 12:00:00 AM EST 500 mg Oral active Take 1 tablet by mouth every 12 (twelve) hours [facility] Metoprolol Tartrate 25 MG Oral Tablet Az toprolol Tartrate 25 MG Oral Tablet (LOPRESSOR) Metoprolol Tartrate 25 MG Oral Tablet (LOPRESSOR) 08/13 12:00:00 AM EST 12.5 mg Oral active Take 0.5 tablets by mouth Two Times Daily [facility] 75 mg 09/02/2019 12:00:00 AM EST [...] TABLET BY MOUTH EVERY DAY SOLD: 06/25/2020 [facility] atorvastatin 80 MG Oral Tablet ATORVASTATIN [...] the skin on a week on Thursday [facility] Insurance Providers Payer name Policy type / Coverage type Policy ID Covered libertarian ID Covered libertarian's relationship to ohara Policy [place] Plan Information BCBS [place]URI S[place]IAN PPO 302/307 [id number] SP [id number] [facility] [id number] [place] Y[place] [id number] EXCELLUS BCBS [id number] xxxxxxxxxxxx [id number] EXCELLUS H [id number] Self [id number] [place] PPO 302/307 [id number] SP [id number] [place] P[place] 302/307 [id number] SP [id number] ANSI-Not a Secondary Insurance [id number] ANSI-Not a Secondary Insurance [id number] ANSI-Not a Secondary Insurance [id number] ANSI-Not a Secondary Insurance [id number] ANSI-Not a Secondary Insurance [id number] ANSI-Not a Secondary Insurance [id number] ANSI-Not a Secondary Insurance [id number] ANSI-Not a Secondary Insurance [id number] ANSI-Not a Secondary Insurance [id number] ANSI-Not a Secondary Insurance [id number] ANSI-Not a Secondary Insurance [id number] ANSI-Not a Secondary Insurance [id number] ceeffcd [id number] ANSI-Not a Secondary Insurance [id number] ANSI-Not a Secondary Insurance [id number] ANSI-Not a Secondary Insurance [id number] ANSI-Not a Secondary Insurance [id number] ANSI-Not a Secondary Insurance [id number] [id number] ANSI-Not a Secondary Insurance [id number] ANSI-Not a Secondary Insurance [id number] ANSI-Not a Secondary Insurance [id number] ANSI-Not a Secondary Insurance [id number] ANSI-Not a Secondary Insurance [id number] ANSI-Not a Secondary Insurance [id number] [id number] [id number] ANSI-Not a Secondary Insurance [id number] ANSI-Not a Secondary Insurance [id number] ANSI-Not a Secondary Insurance [id number] ANSI-Not a Secondary Insurance [id number] ANSI-Not a Secondary Insurance [id number] ANSI-Not a Secondary Insurance [id number] ANSI-Not a Secondary Insurance [id number] EXCELLUS BCBS B [id number] S [id number] ANSI-Not a Secondary Insurance [id number] ANSI-Not a Secondary Insurance [id number] ANSI-Not a Secondary Insurance [id number] BCBS/[employer] Commercial [id number] Self [id number] BCBS/[employer] [id number] Self [id number] BCBS/[employer] [id number] ..[id number] Self [id number] BCBS/[employer] [id number] Self [id number] BCBS/[employer] [id number] 1767.2530.0 Self [id number] BCBS/[employer] Commercial [id number] Self [id number] BC/BS Of [facility] Part B [id number] Self MVP Health Maintenance Organization (HMO) [id number] Se lf BCBS of [facility] Other 0 [id number] Self 0 SELF PAY ONLY [id number] SP [id number] [employer]BS [place] PPO 302/307 [id number] SP [id number] BCBS [place] PPO 302/307 [id number] SP [id number] BCBS OF [place] [id number] S [id number] Problems, Conditions, and Diagnoses Code Display Name Description Problem Type Effective Dates Data Source(s) E78.5 Hyperlipidemia, unspecified Hyperlipidemia, unspecifie d Diagnosis 07/24/2021 03:11:[address] [facility] K21.9 Gastro-esophageal reflux disease without esophagitis Gastro-esophageal reflux disease without Diagnosis 07/24/2021 03:11:37 PM EDT [facility] M19.90 Unspecified osteoarthritis, unspecified site Unspecified osteoarthritis, unspecified Diagnosis 07/24/2021 03:11:[address] [facility] S06.5X9A Traumatic subdural hemorrhag e with loss of consciousness of unspecified duration, initial encounter Traumatic subdural hemorrhage with loss Diagnosis 07/24/2021 03:11:[address] [facility] E11.65 Type 2 diabetes mellitus with hyperglyce valarie Type 2 diabetes mellitus with hyperglyce Diagnosis 07/24/2021 03:11:[address] [facility] Z95.0 Presence of cardiac pacemaker Presence of cardiac pace maker Diagnosis 07/24/2021 03:11:[address] [facility] I10 Essential (primary) hypertension Essential (primary) h ypertension Diagnosis 07/24/2021 03:11:[address] [facility] I35.0 Nonrheumatic aortic (valve) stenosis Nonrheumati c aortic (valve) stenosis Diagnosis 07/24/2021 03:11:37 PM EDT [facility] I42.9 Cardiomyopathy, unspecified Cardiomyopathy, unspecifie d Diagnosis 07/24/2021 03:11:[address] [facility] I63.512 Cerebral infarction due to u nspecified occlusion or stenosis of left middle cerebral artery Cerebral infarction due to unspecified o Diagnosis 07/18/2020 01:21:[address] [facility] E78.5 HLD (hyperlipidemia) HLD (hyperlipidemia) [id number] 07/24/2021 12:00:[address] [facility] K21.9 GERD (gastroesophageal reflux disease) G ERD (gastroesophageal reflux disease) [id number] 07/24/2021 12:00:[address] [facility] M19.90 Arthritis Arthritis [id number] 07/24/2021 12:00:[address] [facility] H25.12 [id number] Age-related nuclear cataract, left eye Problem 09/10/2020 12:00:00 AM EST eCW1 ([facility]) Surgeries/Procedures Procedure Description Date Indications Data Source(s) ECG ROUTINE ECG W/LEAST 12 LDS W/I&R <td>POCT AMB EKG</td><td>Routine</td><td>07/24/2021 5:58 PM EDT</td><td> Cardiomyopathy, unspecified type Essential hypertension Status cardiac pacemaker</td><td> </td> 07/24/2021 05:58:00 PM EDT Status cardiac pacemakerEssential hypert ensionCardiomyopathy, unspecified type [facility] Status cardiac pacemaker Essential hypertension Cardiomyopathy, unspecified type Results ID Date Data Source [id number] 09/25/2020 12:00:00 AM EST [facility] Name Value Range Interpretation Code Description Data Shiloh rce(s) Supporting Document(s) SARS-CoV-2 (COVID-19) RNA [Presence] in Respiratory specimen by BRIANNE with probe detection [facility] This lab was ordered by [facility] and reported by [facility]. ID Date Data Source [id number] 07/18/2020 09:45:[address] [facility] Name Value Range Interpretation Code Description Data Shiloh rce(s) Supporting Document(s) &PDF [facility] NRLTFp6gZvWBGlIh29/XOSwrUXFda3OcGRirNJo2KYwySHUbM5IehQexJCBOOgWGXBjPVXlTU7VAZCWT 0b3 [file] cosmetic sales advisor+79tumWbCJcpVV+U35YGLZZ6qoVRkxplbyjyAZUjg1MjluEJ7BkPk19DSP0UXlNKubJ7cb3gEMTCM [file] AgICAgICAgICAgICAgICAgICAgICAgICAgICAgICAgICAgICAgICAgICAgICAgICAgICAgICAgICAgIC AgICAgICAgICAgICANCiAgICAgICAgICAgICAgICAgICAgICAgICAgICAgICAgICAgICAgICAgICAgIC AgICAgICAgICAgICAgICAgICAgICAgICAgICAgICAg ICAgICAgICAgICAgICAgICAgICAgICANCiAgICAgICAgICAgICAgICAgICAgICAgICAgICAgICAgICAg ICAgICAgICAgICAgICAgICAgICAgICAgICAgICAgICAgICAgICAgICAgICAgICAgICAgICAgICAgICAg ICAgICANCiAgICAgICAgICAgICAgICAgICAgICAgIC AgICAgICAgICAgICAgICAgICAgICAgICAgICAgICAgICAgICAgICAgICAgICAgICAgICAgICAgICAgIC AgICAgICAgICAgICAgICANCiAgICAgICAgICAgICAgICAgICAgICAgICAgICAgICAgICAgICAgICAgIC AgICAgICAgICAgICAgICAgICAgICAgICAgICAgICAg ICAgICAgICAgICAgICAgICAgICAgICAgICANCiAgICAgICAgICAgICAgICAgICAgICAgICAgICAgICAg ICAgICAgICAgICAgICAgICAgICAgICAgICAgICAgICAgICAgICAgICAgICAgICAgICAgICAgICAgICAg ICAgICAgICANCiAgICAgICAgICAgICAgICAgICAgIC AgICAgICAgICAgICAgICAgICAgICAgICAgICAgICAgICAgICAgICAgICAgICAgICAgICAgICAgICAgIC AgICAgICAgICAgICAgICAgICANCiAgICAgICAgICAgICAgICAgICAgICAgICAgICAgICAgICAgICAgIC AgICAgICAgICAgICAgICAgICAgICAgICAgICAgICAg ICAgICAgICAgICAgICAgICAgICAgICAgICAgICANCiAgICAgICAgICAgICAgICAgICAgICAgICAgICAg ICAgICAgICAgICAgICAgICAgICAgICAgICAgICAgICAgICAgICAgICAgICAgICAgICAgICAgICAgICAg ICAgICAgICAgICANCiAgICAgICAgICAgICAgICAgIC AgICAgICAgICAgICAgICAgICAgICAgICAgICAgICAgICAgICAgICAgICAgICAgICAgICAgICAgICAgIC AgICAgICAgICAgICAgICAgICAgICANCjw/hKUfD1vxuUFgilC8M1ygHm6EZk8OPU2gv6KuKUElRDjyua TdMqcFToEiDUOvGwvSTqa4BWdtVH0SsHKoG1XaK3Cp JWrxWO1ABTHbEAUiiJOdKBMmJRYgTlT2ZXRwYNesUU6HsGWiKIouCCQnOROoJoBdIALcEQJmSZFuCR7O WZWhX905gaVuWy1BTe5XIoGiZH2upd1FZxSdOLLwYbvSAkd7QCevPQ6BaFOjE5VfkQDla7lODgLyC2ND AIHcKJSgMr9ICWUqTtToKAEaCEajYU6uHOZbRJFIuX ewsxH3DM8IDS8wtzCrIE5VUcAaQp0eIp2CRlUsJ7KmU4LvFICvJLORHLltCJ2CREKyCHF7POGrFZLfHX ASVtKnG35sCS6RD9Pki23cXoZ6AWKwRjRkYRrfBM30xIcjnlRxxNPeoNtzSG3JTi2+DQplbmRvYmoNCn afCMOPVtJmAyJYFyLvNDYkNQJhRTKuNqG7IgNtEl9Q OUFmYEEtQGEwKtToDKDzHSLkZZtoTMXmRKt2Sbm5FRPmNEZfYK8EYgQjPSEzNZS7FwSiURMyXHYajy6L MUZlXCOoATR4PHAoCETjWBImPTutQIWmHVLqRRGwBWTuOEJyQR9ZUmZlUYKpYFH6GdCoBIQvHHMjhx3D KYEfDPEfOsL9KZCuXRFwETXpQMesXMBlTCZ9POD0YV FhPHPdCA4YSqLgHBDlTOz9QaizDCSsGNGimk9HBIHeWDEfQxu7DBNmIEUgQUUfFEyhDTHoZUP7MFDrSF AhZWTiLZ4DCcPiYVFwUBhdDUtzSUPjONCesv2CFMLxUWPgELQ0TJAbZHXmVFArMNueWHCwTAOcSrMwVE GuDUYiEV8AAdAxVREcPDT1ZTGfTWAkQQKirx2QYYMc FDGkQBOtAUJjSOZxQARsJCdtXIPcRYT7DQl0EBZzWIOoNW6ZZzUeAOLuLAW2QWGyASMjESYfoj6FNOSe ULPkOlPeYNCnNWEhMJJpLJziLVZeHDC3TeU7WBGsRKHcDA1UWbZpTOFzHWD6VKVoJUFgKNOtma3TFWCx SQQmKoI9CFFrZOZvHLAqXDazCBXgWHG8FZZ9IOJqZF AfCT7URiXfMHPfNDp3DPOyDOKpDXQgta3FTUJyAWZzKuL9AbKiSCZhFOMrHWgkYVFaYIX5XEW7ZIIuIY OvCS3GSeZnUZEnUaI2VhOfMAVlGULbpn3XPTXxNNY3WUd4MfUqWQBeZWJlEMpyBTYnGFK3UqT8ZGMiOX KzED5PElKwQZJqMnK1CGhlVTUxGYVovv1VGEPxSYB8 OmxeSbRhSKGcRFMyUQdmDDZmBPk5GBh9OSLoJUJsUE8DWpApRTHpACk5KEgfUFUsKWWtfu9QZEVsJCS7 UILrABBxJWYzWFYcQJvfRXDhIRVzQfcoYMYrPONkIA8HSlGcPXurOVKPXvy8YZivO2y5EJXmMv7UD5An m1ZbMmRlWPOIVKfeWR0fjmLxGMZsKd6NK2rPNgo3KC VwKVMcUcxgVqZbCFEcKKP4YRscLNObNZEeQaVaJD1xIQu0ZSPnHICiCBJrWpBaSMJ6ZbqyDXD4SgJiM6 U6DxG8ZuNrHX3OGa3HIfN1LZC9xJBjBe3NDYYiDSU2WOjeSTJBQl7S Procedure Social History Code Duration Value Status Description Data Source(s ) Alcohol intake 07/24/2021 12:00:00 AM EDT Ex-drinker (finding) comp leted Ex- drinker (finding) [facility] Vital Signs ID Date Data Source UNK Name Value Range Interpretation Code Description Data Source(s) Systolic blood pressure 135 mm[Hg] 135 mm[Hg] [facility] Diastolic blood pressure 85 mm[Hg] 85 mm[Hg] [facility] Heart rate 82 /min 82 /min [facility] Body height 167.[address] [facility] Body weight 83.[address] [facility] Body mass index (BMI) [Ratio] 29.86 kg/m2 29.86 kg/m2 [facility] Oxygen saturation in Arterial blood by Pulse oximetry 98 % 98 % [facility] Patient Treatment Plan of Care Planned Activity Planned Date Details Description Data Source (s) atorvastatin 80 MG Oral Tablet 12/25/2020 12:00:[address] [facility] Metoprolol Tartrate 25 MG Oral Tablet 09/02/2019 12:00:00 AM [facility] Divalproex Sodium 500 MG Delayed Release Oral Tablet 019 12:00:00 AM [facility] atorvastatin 80 MG Oral Tablet 09/02/2019 12:00:00 AM [facility] 0.5 ML dulaglutide 1.5 MG/ML Auto-Injector [facility]
[2021-08-12] MEDS ORDERED: PRED20TA PO (17:49)
[2021-08-12 18:41] VITALS: BP 153/103
== END 2021-08-12 18:45 | disposition home or self-care (01) ==
LOC: M ED 10:31
DX: M54.41 Lumbago with sciatica, right side (principal); Z79.899 Other long term (current) drug therapy

== ENCOUNTER → 2021-08-19 | Outpatient (CLI) | payer BC ==
[~2021-08-19] MED LIST changes: +ATOR80TA59; +ELIQ5TAB; +GLIP5TAB20; +PRED20TA PO; +TIZA2TA
[2021-08-19 17:46] LABS: HEMATOCRIT 45.9 % (42.0-52.0); HEMOGLOBIN 15.9 g/dl (13.5-17.5); MEAN CORPUSCULAR HEMOGLOBIN 29.9 pg (27.0-33.0); MEAN CORPUSCULAR HGB CONC 34.6 g/dl (32.0-36.5); MEAN CORPUSCULAR VOLUME 86.4 fl (80.0-96.0); PLATELET COUNT, AUTOMATED 207 10^3/uL (150-450); RED BLOOD COUNT 5.31 10^6/uL (4.30-6.10); WHITE BLOOD COUNT 9.3 10^3/uL (4.0-10.0)
[2021-08-19 17:51] LABS: HEMOGLOBIN A1c 9.6 %
[2021-08-19 18:10] LABS: ALBUMIN 4.7 GM/DL (3.2-5.2); ALT/SGPT 46 U/L (12-78); BILIRUBIN,TOTAL 0.7 MG/DL (0.2-1.0); BLOOD UREA NITROGEN 23 MG/DL (7-18); CALCIUM LEVEL 10.1 MG/DL (8.5-10.1); CARBON DIOXIDE LEVEL 27 MEQ/L (21-32); CHLORIDE LEVEL 100 MEQ/L (98-107); CHOLESTEROL LEVEL 130 MG/DL (<200); CREATININE FOR GFR 0.97 MG/DL (0.70-1.30); FERRITIN 119 NG/ML (26-388); GLOMERULAR FILTRATION RATE > 60.0 (>56); GLUCOSE, FASTING 349 MG/DL (70-100); HDL CHOLESTEROL 65 MG/DL (>40); IRON (FE) 77 UG/DL (65-175); LDL CHOLESTEROL 49 MG/DL (<100); NON-HDL-C 65 MG/DL; PERCENT SATURATION 20.1 % (19.7-50.0); POTASSIUM SERUM 5.2 MEQ/L (3.5-5.1); SODIUM LEVEL 136 MEQ/L (136-145); THYROID STIMULATING HORMONE 0.629 uIU/ML (0.358-3.740); TOTAL IRON BINDING CAPACITY 383 UG/DL (250-450); TOTAL PROTEIN 7.3 GM/DL (6.4-8.2); TRIGLYCERIDES LEVEL 81 MG/DL (<150)
== END ==
LOC: M PLALAB 14:49
PROVIDERS: ATTEND Nurse Practitioner Adult Health
DX: I35.0 Nonrheumatic aortic (valve) stenosis (principal)

== ENCOUNTER → 2021-08-24 | Outpatient (CLI) | payer BC ==
[~2021-08-24] MED LIST changes: +ACET-907 PO
== END ==
LOC: M LABSMTC 10:32
PROVIDERS: ATTEND Anesthesiology
DX: Z01.818 Encounter for other preprocedural examination (principal); Z11.52 Encounter for screening for COVID-19

== ENCOUNTER 2021-08-29 08:33 | Day surgery (SDC) | payer BC ==
[~2021-08-29] VITALS: Ht 165.1 cm; Wt 80.5 kg
[~2021-08-29 08:33] MED LIST changes: +CYCLOPENTOLATE 1% OPHTH SOLN 2 ML BTL OS SCH; +DUOVISC (0.50ML VISCOAT/0.85ML PROVISC) OPHTH KIT As Ordered ONE; -ELIQ5TAB; +ELIQ5TAB PO; +FLURBIPROFEN 0.03% OPHTH SOLN 2.5 ML OS SCH; +LIDOCAINE 1% SDV 5ML VIAL As Ordered ONE; +LR 1,000 ML IV SCH; +MAXITROL OPHTH SUSP 5 ML As Ordered ONE; +PHENYLEPHRINE 2.5% OPHTH SOL 2ML OS SCH; +TETRACAINE 0.5% OPHTH SOLN 4ML OS SCH
[2021-08-29] MEDS ORDERED: MIDAZOLAM INJ 2MG/2ML VIAL (J2250 PER 1MG) As Ordered ONE (08:57)
[2021-08-29] MEDS ORDERED: fentaNYL 100 MCG/2 ML INJECTION (J3010) As Ordered ONE (08:57)
[2021-08-29] MEDS ORDERED: TRYPAN BLUE 0.06 % 2.25 ML OPHTH SYR (VISIONBLUE) As Ordered ONE (10:04)
[2021-08-29 11:05] VITALS: BP 134/81
--- NOTE | 2021-08-29 15:54 | ROOPDOC ---
[facility] Report Of Operation Report of Operation DATE OF PROCEDURE: 08/29/21 PREPROCEDURE DIAGNOSES: Cataract left eye. POSTPROCEDURE DIAGNOSES: Same. PROCEDURE PERFORMED: Cataract extraction with intraocular lens implantation left eye. SURGEON: Nilay Steven MD BED MANAGER: None ANESTHESIA: Local ESTIMATED BLOOD LOSS: None. COMPLICATIONS: None. SPECIMENS REMOVED: None DESCRIPTION OF PROCEDURE: The patient was brought to the operating room and prepped and draped in the usual sterile fashion and an eyelid speculum was inserted in the left eye. A paracentesis was made and the anterior chamber was inflated with non-preserved lidocaine. This was followed by injection of air, Trypan blue and Viscoat due to the white lens. A groove was made in the superotemporal clear cornea which was tunneled forward with the crescent blade and the anterior chamber was entered with a 2.75 keratome. The cystotome was used to make an incision in the center of the capsule and a continuous curvilinear capsulorhexis was created. The lens was hydrodissected until it was found to rotate freely within the capsular bag. Phacoemulsification was then used to remove the lens in its entirety. Irrigation and aspiration were used to remove residual cortical material. The anterior chamber and capsular bag were reinflated with Provisc and a 20.0 diopter SN60AT lens was injected into the capsular bag using the [place] injector. The lens was dialed into place using the Sinskey hook. Irrigation and aspiration were used to remove residual viscoelastic. The wound was stromally hydrated until was found to be watertight and the eye was in an appropriate pressure. The eyelid speculum was removed from the eye and Maxitrol drops were placed over the left eye. The patient was transferred to the recovery room in stable condition and will follow up tomorrow. The total CDE was 14.24. NILAY STEVEN MD Aug 29, 2021 15:54
== END 2021-08-29 11:18 | disposition home or self-care (01) ==
LOC: M SDC 08:33
PROVIDERS: ATTEND Ophthalmology
DX: H25.12 Age-related nuclear cataract, left eye (principal); E11.9 Type 2 diabetes mellitus without complications; Z86.73 Personal history of transient ischemic attack (TIA), and cerebral infarction without residual deficits; Z95.0 Presence of cardiac pacemaker; I10 Essential (primary) hypertension; E78.5 Hyperlipidemia, unspecified; R56.9 Unspecified convulsions; G43.909 Migraine, unspecified, not intractable, without status migrainosus; Z79.899 Other long term (current) drug therapy
CPT/HCPCS: 66984; J2250; J3010

== ENCOUNTER → 2022-10-22 | Outpatient (CLI) | payer BC ==
[~2022-10-22] MED LIST changes: -CYCLOPENTOLATE 1% OPHTH SOLN 2 ML BTL OS SCH; -DUOVISC (0.50ML VISCOAT/0.85ML PROVISC) OPHTH KIT As Ordered ONE; -FLURBIPROFEN 0.03% OPHTH SOLN 2.5 ML OS SCH; -LIDOCAINE 1% SDV 5ML VIAL As Ordered ONE; -LR 1,000 ML IV SCH; -MAXITROL OPHTH SUSP 5 ML As Ordered ONE; -PHENYLEPHRINE 2.5% OPHTH SOL 2ML OS SCH; -TETRACAINE 0.5% OPHTH SOLN 4ML OS SCH
[2022-10-22 18:12] LABS: BASO % 0.7 % (0.0-1.0); EOS # 0.1 10^3/uL (0.0-0.5); EOS % 1.7 % (0.0-3.0); HEMATOCRIT 46.3 % (42.0-52.0); HEMOGLOBIN 15.6 g/dl (13.5-17.5); LYMPH # 1.6 10^3/uL (1.5-5.0); LYMPH % 26.4 % (24.0-44.0); MEAN CORPUSCULAR HEMOGLOBIN 29.9 pg (27.0-33.0); MEAN CORPUSCULAR HGB CONC 33.7 g/dl (32.0-36.5); MEAN CORPUSCULAR VOLUME 88.9 fl (80.0-96.0); MONO # 0.6 10^3/uL (0.0-0.8); MONO % 10.5 % (2.0-8.0); NEUTROPHILS # 3.6 10^3/uL (1.5-8.5); PLATELET COUNT, AUTOMATED 211 10^3/uL (150-450); RED BLOOD COUNT 5.21 10^6/uL (4.30-6.10); WHITE BLOOD COUNT 5.9 10^3/uL (4.0-10.0)
[2022-10-22 18:21] LABS: HEMOGLOBIN A1c 6.6 % (4.0-6.0)
[2022-10-22 18:29] LABS: VALPROIC ACID (DEPAKOTE) 45.5 UG/ML (50.0-100.0)
[2022-10-22 18:32] LABS: ALBUMIN 4.4 G/DL (3.2-5.2); ALKALINE PHOSPHATASE 113 U/L (46-116); ALT/SGPT 67 U/L (7.0-40); AST/SGOT 28 U/L (<34); BILIRUBIN,TOTAL 0.7 MG/DL (0.3-1.2); BLOOD UREA NITROGEN 26 MG/DL (9-23); CALCIUM LEVEL 9.8 MG/DL (8.5-10.1); CARBON DIOXIDE LEVEL 29 MMOL/L (20-31); CHLORIDE LEVEL 103 MMOL/L (98-107); CHOLESTEROL LEVEL 171 MG/DL (<200); CHOLESTEROL RISK RATIO 2.62 (<5); CREATININE FOR GFR 0.75 MG/DL (0.70-1.30); GLOMERULAR FILTRATION RATE > 60.0 (>56); GLUCOSE, FASTING 150 MG/DL (60-100); HDL CHOLESTEROL 65.1 MG/DL (>40); LDL CHOLESTEROL 81.3 MG/DL (<100); NON-HDL-C 106 MG/DL; POTASSIUM SERUM 5.3 MMOL/L (3.5-5.1); SODIUM LEVEL 139 MMOL/L (136-145); TOTAL PROTEIN 6.7 G/DL (5.7-8.2); TRIGLYCERIDES LEVEL 123 MG/DL (<150)
== END ==
LOC: M PLALAB 15:18
PROVIDERS: ATTEND Physician Assistant
DX: E11.65 Type 2 diabetes mellitus with hyperglycemia (principal)

== ENCOUNTER → 2023-04-21 | Outpatient (CLI) | payer BC ==
[2023-04-21 17:54] LABS: BASO % 0.5 % (0.0-1.0); EOS % 0.9 % (0.0-3.0); HEMATOCRIT 41.7 % (42.0-52.0); HEMOGLOBIN 14.1 g/dl (13.5-17.5); LYMPH # 0.9 10^3/uL (1.5-5.0); LYMPH % 21.5 % (24.0-44.0); MEAN CORPUSCULAR HEMOGLOBIN 30.5 pg (27.0-33.0); MEAN CORPUSCULAR HGB CONC 33.8 g/dl (32.0-36.5); MEAN CORPUSCULAR VOLUME 90.1 fl (80.0-96.0); MONO # 0.4 10^3/uL (0.0-0.8); MONO % 10.1 % (2.0-8.0); NEUTROPHILS # 2.9 10^3/uL (1.5-8.5); NEUTROPHILS % 66.8 % (36.0-66.0); PLATELET COUNT, AUTOMATED 197 10^3/uL (150-450); RED BLOOD COUNT 4.63 10^6/uL (4.30-6.10); WHITE BLOOD COUNT 4.3 10^3/uL (4.0-10.0)
[2023-04-21 18:03] LABS: HEMOGLOBIN A1c 8.7 % (4.0-6.0)
[2023-04-21 18:23] LABS: VALPROIC ACID (DEPAKOTE) 66.2 UG/ML (50.0-100.0)
[2023-04-21 18:25] LABS: ALBUMIN 4.2 G/DL (3.2-5.2); ALKALINE PHOSPHATASE 100 U/L (46-116); ALT/SGPT 24 U/L (7.0-40); AST/SGOT < 8 U/L (<34); BILIRUBIN,TOTAL 0.6 MG/DL (0.3-1.2); BLOOD UREA NITROGEN 27 MG/DL (9-23); CALCIUM LEVEL 9.5 MG/DL (8.3-10.6); CARBON DIOXIDE LEVEL 29 MMOL/L (20-31); CHLORIDE LEVEL 105 MMOL/L (98-107); CHOLESTEROL LEVEL 107 MG/DL (<200); CHOLESTEROL RISK RATIO 1.87 (<5); GLOMERULAR FILTRATION RATE > 60.0 (>49); GLUCOSE, FASTING 150 MG/DL (74-106); HDL CHOLESTEROL 57.1 MG/DL (>40); LDL CHOLESTEROL 36.3 MG/DL (<100); NON-HDL-C 49.9 MG/DL; POTASSIUM SERUM 4.7 MMOL/L (3.5-5.1); SODIUM LEVEL 139 MMOL/L (136-145); TOTAL PROTEIN 6.2 G/DL (5.7-8.2); TRIGLYCERIDES LEVEL 68 MG/DL (<150)
== END ==
LOC: M PLALAB 12:29
PROVIDERS: ATTEND Physician Assistant
DX: E11.65 Type 2 diabetes mellitus with hyperglycemia (principal); I10 Essential (primary) hypertension; G40.909 Epilepsy, unspecified, not intractable, without status epilepticus
CPT/HCPCS: 36415; 80053; 80061; 80164; 83036; 85025; G0103

== ENCOUNTER → 2023-05-25 | Outpatient (CLI) | payer BC | LOC: M PLAIMG 10:42 | PROVIDERS: ATTEND Physician Assistant | DX: M54.41 Lumbago with sciatica, right side (principal); M48.061 Spinal stenosis, lumbar region without neurogenic claudication; M51.36 Other intervertebral disc degeneration, lumbar region ==

== ENCOUNTER → 2024-04-19 | Outpatient (REF) | payer BC | LOC: M SFHCPLAZ 16:55 | PROVIDERS: ATTEND Physician Assistant | DX: R09.81 Nasal congestion (principal); J02.9 Acute pharyngitis, unspecified ==

== ENCOUNTER → 2024-09-12 | Outpatient (REF) | payer BC | LOC: M SFHCWOUN 17:16 | PROVIDERS: ATTEND Surgery | DX: L97.912 Non-pressure chronic ulcer of unspecified part of right lower leg with fat layer exposed (principal); S81.001A Unspecified open wound, right knee, initial encounter; W18.30XA Fall on same level, unspecified, initial encounter; Y92.009 Unspecified place in unspecified non-institutional (private) residence as the place of occurrence of the external cause ==

== ENCOUNTER → 2024-11-14 | Outpatient (CLI) | payer BC | LOC: M PLALAB 12:45 → M PLAIMG 12:45 | PROVIDERS: ATTEND Physician Assistant Medical | DX: R06.02 Shortness of breath (principal); J40 Bronchitis, not specified as acute or chronic ==

== ENCOUNTER → 2024-11-14 | Outpatient (CLI) | payer BC ==
[2024-11-14 15:27] LABS: HEMOGLOBIN A1c 7.6 % (4.0-6.0)
[2024-11-14 15:30] LABS: CREATININE, URINE 91.8 MG/DL; MAU/CREAT RATIO 83.8 MCG/MG (0.0-30.0)
[2024-11-14 15:32] LABS: ALBUMIN 2.9 G/DL (3.2-5.2); ALKALINE PHOSPHATASE 296 U/L (40-129); ALT/SGPT 35 U/L (7.0-40); AST/SGOT 21 U/L (<34); BILIRUBIN,TOTAL 0.5 MG/DL (0.3-1.2); BLOOD UREA NITROGEN 24 MG/DL (9-23); CALCIUM LEVEL 9.5 MG/DL (8.3-10.6); CARBON DIOXIDE LEVEL 25 MMOL/L (20-31); CHLORIDE LEVEL 106 MMOL/L (98-107); CHOLESTEROL LEVEL 120 MG/DL (<200); CHOLESTEROL RISK RATIO 1.98 (<5); CREATININE FOR GFR 0.81 MG/DL (0.70-1.30); GLOMERULAR FILTRATION RATE > 60.0 (>49); GLUCOSE, FASTING 253 MG/DL (74-106); HDL CHOLESTEROL 60.4 MG/DL (>40); LDL CHOLESTEROL 46.4 MG/DL (<100); NON-HDL-C 59.6 MG/DL; POTASSIUM SERUM 4.6 MMOL/L (3.5-5.1); SODIUM LEVEL 143 MMOL/L (136-145); TOTAL PROTEIN 6.1 G/DL (5.7-8.2); TRIGLYCERIDES LEVEL 66 MG/DL (<150)
[2024-11-14 15:33] LABS: THYROID STIMULATING HORMONE 0.846 uIU/ML (0.55-4.78)
== END ==
LOC: M PLALAB 12:49
PROVIDERS: ATTEND Nurse Practitioner Family
DX: E78.2 Mixed hyperlipidemia (principal); E11.65 Type 2 diabetes mellitus with hyperglycemia; I10 Essential (primary) hypertension

== ENCOUNTER 2024-11-16 11:45 | Inpatient (IN) | payer BC ==
[~2024-11-16] VITALS: Ht 167.6 cm; Wt 81.1 kg
[~2024-11-16 11:45] MED LIST changes: -ATOR80TA59; +ATOR80TA59 PO; -GLIP5TAB20; +GLIP5TAB20 PO; -TIZA2TA; +TIZA2TA PO
[2024-11-16 17:14] LABS: BASO % 0.4 % (0.0-1.0); EOS % 0.5 % (0.0-3.0); HEMATOCRIT 36.2 % (42.0-52.0); HEMOGLOBIN 11.8 g/dl (13.5-17.5); LYMPH # 0.8 10^3/uL (1.5-5.0); LYMPH % 10.5 % (24.0-44.0); MEAN CORPUSCULAR HEMOGLOBIN 29.8 pg (27.0-33.0); MEAN CORPUSCULAR HGB CONC 32.6 g/dl (32.0-36.5); MEAN CORPUSCULAR VOLUME 91.4 fl (80.0-96.0); MONO # 0.7 10^3/uL (0.0-0.8); MONO % 9.5 % (2.0-8.0); NEUTROPHILS % 78.6 % (36.0-66.0); PLATELET COUNT, AUTOMATED 468 10^3/uL (150-450); RED BLOOD COUNT 3.96 10^6/uL (4.30-6.10); WHITE BLOOD COUNT 7.6 10^3/uL (4.0-10.0)
[2024-11-16 17:37] LABS: CK-MB VALUE MASS 4.5 NG/ML (<3.6); LIPASE 44 U/L (12-53)
[2024-11-16 17:40] LABS: ALBUMIN 2.9 G/DL (3.2-5.2); ALKALINE PHOSPHATASE 305 U/L (40-129); ALT/SGPT 28 U/L (7.0-40); AST/SGOT 20 U/L (<34); BILIRUBIN,TOTAL 0.6 MG/DL (0.3-1.2); BLOOD UREA NITROGEN 22 MG/DL (9-23); CALCIUM LEVEL 8.9 MG/DL (8.3-10.6); CARBON DIOXIDE LEVEL 27 MMOL/L (20-31); CHLORIDE LEVEL 108 MMOL/L (98-107); CPK CREATINE PHOSPHOKINASE 64 U/L (46-171); CREATININE FOR GFR 0.61 MG/DL (0.70-1.30); GLOMERULAR FILTRATION RATE > 60.0 (>49); GLUCOSE, FASTING 256 MG/DL (74-106); MB/CK RELATIVE INDEX 7.03 (< OR =4); POTASSIUM SERUM 4.1 MMOL/L (3.5-5.1); SODIUM LEVEL 143 MMOL/L (136-145); TOTAL PROTEIN 6.3 G/DL (5.7-8.2)
[2024-11-16] MEDS: FUROSEMIDE 40MG/4ML VIAL IV ONE (18:05)
[2024-11-16 18:37] LABS: INR 1.18; PARTIAL THROMBOPLASTIN TIME 45.6 SECONDS (24.8-34.2); PROTHROMBIN TIME 15.3 SECONDS (12.5-14.5)
[2024-11-16 18:51] LABS: CK-MB VALUE MASS 3.8 NG/ML (<3.6); MB/CK RELATIVE INDEX 6.9 (< OR =4)
[2024-11-16 19:49] LABS: CK-MB VALUE MASS 4.3 NG/ML (<3.6)
[2024-11-16 20:01] LABS: MB/CK RELATIVE INDEX 7.16 (< OR =4)
[2024-11-16] MEDS ORDERED: AMOX875T2 PO (21:23)
[2024-11-16] MEDS ORDERED: IBUP-1764 PO (21:27)
[2024-11-16] MEDS ORDERED: TAMS1CAP17 PO (21:35)
[2024-11-16] MEDS ORDERED: CLOP75TA2 PO (21:37)
[2024-11-16] MEDS ORDERED: HOME MED LIST COMPLETE! XX SCH (21:40)
[2024-11-16] MEDS ORDERED: ACETAMINOPHEN 325 MG TAB PO PRN (21:50)
[2024-11-16] MEDS ORDERED: MAALOX 30 ML SUSP *UDC PO PRN (21:50)
[2024-11-16] MEDS ORDERED: MOM 30ML SUSPENSION UDC PO PRN (21:50)
[2024-11-16] MEDS ORDERED: GLUCAGON INJ 1MG VIAL SC PRN (21:55)
[2024-11-16] MEDS ORDERED: GLUCOSE 4 GM CHEW PO PRN (21:55)
[2024-11-16] MEDS ORDERED: DEXTROSE 50% 50ML SYRINGE IV PRN (21:55)
[2024-11-16] MEDS: ATORVASTATIN 20 MG TAB PO SCH (22:49)
[2024-11-16] MEDS: APIXABAN 5 MG TAB (ELIQUIS) PO SCH (22:50)
[2024-11-16] MEDS: TAMSULOSIN 0.4 MG CAP PO SCH (22:50)
[2024-11-16] MEDS: CLOPIDOGREL 75 MG TAB PO SCH (22:50)
[2024-11-16] MEDS: DIVALPROEX 500 MG TAB PO SCH (22:51)
[2024-11-16] MEDS: METOPROLOL TART 25 MG TABLET PO SCH (22:51)
[2024-11-17] MEDS: ACETAMINOPHEN 325 MG TAB PO PRN (02:20)
[2024-11-17 04:57] VITALS: BP 166/93; TEMP 97.1; O2SAT 95
[2024-11-17] MEDS: IBUPROFEN 400MG TAB PO PRN (05:28)
[2024-11-17 06:32] LABS: HEMATOCRIT 34.3 % (42.0-52.0); MEAN CORPUSCULAR HGB CONC 32.1 g/dl (32.0-36.5); MEAN CORPUSCULAR VOLUME 90.5 fl (80.0-96.0); PLATELET COUNT, AUTOMATED 422 10^3/uL (150-450); RED BLOOD COUNT 3.79 10^6/uL (4.30-6.10); WHITE BLOOD COUNT 7.5 10^3/uL (4.0-10.0)
[2024-11-17 06:57] LABS: ALBUMIN 2.6 G/DL (3.2-5.2); ALKALINE PHOSPHATASE 264 U/L (40-129); ALT/SGPT 26 U/L (7.0-40); AST/SGOT 27 U/L (<34); BILIRUBIN,TOTAL 0.6 MG/DL (0.3-1.2); BLOOD UREA NITROGEN 20 MG/DL (9-23); CALCIUM LEVEL 8.8 MG/DL (8.3-10.6); CARBON DIOXIDE LEVEL 29 MMOL/L (20-31); CHLORIDE LEVEL 105 MMOL/L (98-107); CHOLESTEROL LEVEL 119 MG/DL (<200); CHOLESTEROL RISK RATIO 2.23 (<5); CREATININE FOR GFR 0.63 MG/DL (0.70-1.30); GLOMERULAR FILTRATION RATE > 60.0 (>49); GLUCOSE, FASTING 192 MG/DL (74-106); HDL CHOLESTEROL 53.3 MG/DL (>40); LDL CHOLESTEROL 48.3 MG/DL (<100); MAGNESIUM LEVEL 1.6 MG/DL (1.8-2.4); NON-HDL-C 65.7 MG/DL; POTASSIUM SERUM 4.4 MMOL/L (3.5-5.1); SODIUM LEVEL 145 MMOL/L (136-145); TOTAL PROTEIN 5.8 G/DL (5.7-8.2); TRIGLYCERIDES LEVEL 87 MG/DL (<150)
[2024-11-17 08:24] VITALS: BP 158/98; TEMP 97; O2SAT 97
[2024-11-17] MEDS: MAG SULF 1GM/100ML (MAG RUN) 1 GM in IV 1 EA IV SCH (08:25)
[2024-11-17] MEDS: INSULIN LISPRO (NovoLOG) PER UNIT SC SCH (08:26)
[2024-11-17] MEDS: FUROSEMIDE 40MG/4ML VIAL IV SCH (08:26)
[2024-11-17] MEDS: PANTOPRAZOLE 40MG VIAL IV SCH (08:26)
[2024-11-17] MEDS: DOCUSATE SODIUM 100MG CAPSULE PO SCH (08:28)
[2024-11-17 12:00] VITALS: BP 129/88; TEMP 98.8; O2SAT 97
[2024-11-17 14:44] LABS: BLOOD UREA NITROGEN 20 MG/DL (9-23); CALCIUM LEVEL 9.1 MG/DL (8.3-10.6); CARBON DIOXIDE LEVEL 31 MMOL/L (20-31); CHLORIDE LEVEL 102 MMOL/L (98-107); CREATININE FOR GFR 0.69 MG/DL (0.70-1.30); GLOMERULAR FILTRATION RATE > 60.0 (>49); GLUCOSE, FASTING 264 MG/DL (74-106); MAGNESIUM LEVEL 2.1 MG/DL (1.8-2.4); POTASSIUM SERUM 4.3 MMOL/L (3.5-5.1); SODIUM LEVEL 141 MMOL/L (136-145)
[2024-11-17 16:00] VITALS: BP 150/83; TEMP 97.3; O2SAT 96
[2024-11-17 20:00] VITALS: BP 140/70; TEMP 97.2; O2SAT 94
[2024-11-17 23:23] VITALS: BP 146/76; TEMP 97.1; O2SAT 95
[2024-11-18] VITALS (7 sets, daily range): BP systolic 140–157; BP diastolic 70–89; TEMP 97.3–98.8; O2SAT 93–97
[2024-11-18 07:24] LABS: HEMATOCRIT 38.7 % (42.0-52.0); HEMOGLOBIN 12.6 g/dl (13.5-17.5); MEAN CORPUSCULAR HEMOGLOBIN 29.2 pg (27.0-33.0); MEAN CORPUSCULAR HGB CONC 32.6 g/dl (32.0-36.5); MEAN CORPUSCULAR VOLUME 89.6 fl (80.0-96.0); PLATELET COUNT, AUTOMATED 489 10^3/uL (150-450); RED BLOOD COUNT 4.32 10^6/uL (4.30-6.10); WHITE BLOOD COUNT 10.1 10^3/uL (4.0-10.0)
[2024-11-18 07:42] LABS: BLOOD UREA NITROGEN 25 MG/DL (9-23); CALCIUM LEVEL 8.6 MG/DL (8.3-10.6); CARBON DIOXIDE LEVEL 30 MMOL/L (20-31); CHLORIDE LEVEL 101 MMOL/L (98-107); CREATININE FOR GFR 0.69 MG/DL (0.70-1.30); GLOMERULAR FILTRATION RATE > 60.0 (>49); GLUCOSE, FASTING 196 MG/DL (74-106); MAGNESIUM LEVEL 1.7 MG/DL (1.8-2.4); POTASSIUM SERUM 4.2 MMOL/L (3.5-5.1); SODIUM LEVEL 142 MMOL/L (136-145)
[2024-11-18] MEDS: PANTOPRAZOLE 40MG TAB (PROTONIX) PO SCH (08:35)
[2024-11-18] MEDS: FUROSEMIDE 40 MG TAB PO SCH (09:00)
[2024-11-18] MEDS: LIDOCAINE 5% (LIDODERM) PATCH TD SCH (21:06)
[2024-11-19 03:53] VITALS: BP 141/86; TEMP 98; O2SAT 97
[2024-11-19 06:06] LABS: HEMATOCRIT 35.6 % (42.0-52.0); HEMOGLOBIN 11.5 g/dl (13.5-17.5); MEAN CORPUSCULAR HEMOGLOBIN 28.7 pg (27.0-33.0); MEAN CORPUSCULAR HGB CONC 32.3 g/dl (32.0-36.5); MEAN CORPUSCULAR VOLUME 88.8 fl (80.0-96.0); PLATELET COUNT, AUTOMATED 414 10^3/uL (150-450); RED BLOOD COUNT 4.01 10^6/uL (4.30-6.10); WHITE BLOOD COUNT 7.4 10^3/uL (4.0-10.0)
[2024-11-19 06:19] LABS: ERYTHROCYTE SEDIMENTATION RATE 63 mm/hr (0-20)
[2024-11-19 06:36] LABS: BLOOD UREA NITROGEN 30 MG/DL (9-23); CALCIUM LEVEL 8.1 MG/DL (8.3-10.6); CARBON DIOXIDE LEVEL 30 MMOL/L (20-31); CHLORIDE LEVEL 100 MMOL/L (98-107); CREATININE FOR GFR 0.68 MG/DL (0.70-1.30); GLOMERULAR FILTRATION RATE > 60.0 (>49); GLUCOSE, FASTING 212 MG/DL (74-106); MAGNESIUM LEVEL 1.6 MG/DL (1.8-2.4); POTASSIUM SERUM 3.9 MMOL/L (3.5-5.1); SODIUM LEVEL 141 MMOL/L (136-145)
[2024-11-19 07:25] VITALS: BP 143/82; TEMP 97.6; O2SAT 96
[2024-11-19] MEDS: MAG SULF 1GM/100ML (MAG RUN) 1 GM in IV 1 EA IV SCH (08:13)
[2024-11-19] MEDS ORDERED: FUROSEMIDE 40MG/4ML VIAL IV SCH (09:00)
[2024-11-19] MEDS: POTASSIUM CHLORIDE 10MEQ SR TABLET PO SCH (09:53)
[2024-11-19 11:37] VITALS: BP 131/74; TEMP 97.8; O2SAT 96
[2024-11-19 15:45] VITALS: BP 123/75; TEMP 97.2; O2SAT 97
[2024-11-19 16:06] VITALS: BP 156/82; TEMP 99; O2SAT 96
[2024-11-19 20:29] VITALS: BP 132/81; TEMP 97.2; O2SAT 97
[2024-11-19] MEDS: INSULIN LISPRO (NovoLOG) PER UNIT SC SCH (21:00)
[2024-11-20 04:05] VITALS: BP 146/93; TEMP 97.2; O2SAT 96
[2024-11-20 06:24] LABS: HEMATOCRIT 35.5 % (42.0-52.0); HEMOGLOBIN 11.5 g/dl (13.5-17.5); MEAN CORPUSCULAR HEMOGLOBIN 28.8 pg (27.0-33.0); MEAN CORPUSCULAR HGB CONC 32.4 g/dl (32.0-36.5); MEAN CORPUSCULAR VOLUME 88.8 fl (80.0-96.0); PLATELET COUNT, AUTOMATED 412 10^3/uL (150-450); WHITE BLOOD COUNT 7.6 10^3/uL (4.0-10.0)
[2024-11-20 06:52] LABS: BLOOD UREA NITROGEN 29 MG/DL (9-23); C REACTIVE PROTEIN QUANTITATIV 3.71 MG/DL (<1.0); CALCIUM LEVEL 7.9 MG/DL (8.3-10.6); CARBON DIOXIDE LEVEL 28 MMOL/L (20-31); CHLORIDE LEVEL 103 MMOL/L (98-107); CREATININE FOR GFR 0.64 MG/DL (0.70-1.30); GLOMERULAR FILTRATION RATE > 60.0 (>49); GLUCOSE, FASTING 177 MG/DL (74-106); MAGNESIUM LEVEL 1.7 MG/DL (1.8-2.4); POTASSIUM SERUM 4.4 MMOL/L (3.5-5.1); SODIUM LEVEL 141 MMOL/L (136-145)
[2024-11-20 07:55] VITALS: BP 141/80; TEMP 97.3; O2SAT 96
[2024-11-20] MEDS: MAG SULF 1GM/100ML (MAG RUN) 1 GM in IV 1 EA IV SCH (08:27)
[2024-11-20] MEDS: LEVEMIR (INSULIN DETEMIR) 1 UNITS/0.01ML SC SCH (08:27)
[2024-11-20] MEDS: FUROSEMIDE 20 MG TAB PO SCH (08:28)
[2024-11-20 15:37] VITALS: BP 131/73; TEMP 97.2; O2SAT 97
[2024-11-20 19:31] VITALS: BP 152/87; TEMP 96.6; O2SAT 99
[2024-11-21 05:24] VITALS: BP 160/79; TEMP 97.7; O2SAT 95
[2024-11-21 05:53] LABS: HEMATOCRIT 35.5 % (42.0-52.0); HEMOGLOBIN 11.3 g/dl (13.5-17.5); MEAN CORPUSCULAR HEMOGLOBIN 28.5 pg (27.0-33.0); MEAN CORPUSCULAR HGB CONC 31.8 g/dl (32.0-36.5); MEAN CORPUSCULAR VOLUME 89.6 fl (80.0-96.0); PLATELET COUNT, AUTOMATED 379 10^3/uL (150-450); RED BLOOD COUNT 3.96 10^6/uL (4.30-6.10); WHITE BLOOD COUNT 6.1 10^3/uL (4.0-10.0)
[2024-11-21 05:58] LABS: ERYTHROCYTE SEDIMENTATION RATE 64 mm/hr (0-20)
[2024-11-21 06:41] LABS: BLOOD UREA NITROGEN 34 MG/DL (9-23); CALCIUM LEVEL 8.4 MG/DL (8.3-10.6); CARBON DIOXIDE LEVEL 27 MMOL/L (20-31); CHLORIDE LEVEL 105 MMOL/L (98-107); CREATININE FOR GFR 0.67 MG/DL (0.70-1.30); GLOMERULAR FILTRATION RATE > 60.0 (>49); GLUCOSE, FASTING 179 MG/DL (74-106); MAGNESIUM LEVEL 1.7 MG/DL (1.8-2.4); POTASSIUM SERUM 4.7 MMOL/L (3.5-5.1); SODIUM LEVEL 142 MMOL/L (136-145)
[2024-11-21 07:59] VITALS: BP 155/60; TEMP 97.3; O2SAT 98
[2024-11-21] MEDS: MAG SULF 1GM/100ML (MAG RUN) 1 GM in IV 1 EA IV SCH (11:27)
[2024-11-21 16:29] VITALS: BP 135/90; TEMP 97.2; O2SAT 98
[2024-11-21] MEDS ORDERED: MIDAZOLAM INJ 2MG/2ML VIAL As Ordered ONE (17:22)
[2024-11-21] MEDS: CETACAINE SPRAY 5GM As Ordered ONE (17:33)
[2024-11-21] MEDS ORDERED: propofoL 200 MG/20 ML VIAL As Ordered ONE (17:48)
[2024-11-21 18:44] VITALS: BP 149/76; TEMP 97.7; O2SAT 97
[2024-11-21 19:50] VITALS: BP 130/82; TEMP 96.7; O2SAT 98
[2024-11-21 20:18] VITALS: BP 130/82
[2024-11-22 04:00] VITALS: BP 157/79; TEMP 98.3; O2SAT 97
[2024-11-22 08:53] LABS: HEMATOCRIT 40.4 % (42.0-52.0); MEAN CORPUSCULAR HEMOGLOBIN 29.1 pg (27.0-33.0); MEAN CORPUSCULAR HGB CONC 32.2 g/dl (32.0-36.5); MEAN CORPUSCULAR VOLUME 90.4 fl (80.0-96.0); PLATELET COUNT, AUTOMATED 424 10^3/uL (150-450); RED BLOOD COUNT 4.47 10^6/uL (4.30-6.10); WHITE BLOOD COUNT 7.7 10^3/uL (4.0-10.0)
[2024-11-22 09:28] LABS: BLOOD UREA NITROGEN 26 MG/DL (9-23); CARBON DIOXIDE LEVEL 26 MMOL/L (20-31); CHLORIDE LEVEL 107 MMOL/L (98-107); CREATININE FOR GFR 0.65 MG/DL (0.70-1.30); GLOMERULAR FILTRATION RATE > 60.0 (>49); GLUCOSE, FASTING 168 MG/DL (74-106); MAGNESIUM LEVEL 1.7 MG/DL (1.8-2.4); SODIUM LEVEL 142 MMOL/L (136-145)
[2024-11-22] MEDS ORDERED: FURO20TA2 PO ×2 (10:08→10:32)
[2024-11-22] MEDS ORDERED: LIDO5TD TD (10:08)
== END 2024-11-22 14:48 | disposition home or self-care (01) | DRG 194 ==
LOC: M ED 11:45 → M ED INP 21:48 → M PCU 11-17 04:50 → M MS4PR 11-21 21:42
PROVIDERS: ADMIT Student in an Organized Health Care Education/Training Program; ATTEND Student in an Organized Health Care Education/Training Program
PROC: B246ZZZ Ultrasonography of Right and Left Heart (ICD-10-PCS; principal; 2024-11-17)
PROC: B246ZZ4 Ultrasonography of Right and Left Heart, Transesophageal (ICD-10-PCS; 2024-11-21)
DX: I11.0 Hypertensive heart disease with heart failure (principal); E11.621 Type 2 diabetes mellitus with foot ulcer; L97.319 Non-pressure chronic ulcer of right ankle with unspecified severity; E83.42 Hypomagnesemia; Z95.3 Presence of xenogenic heart valve; G40.909 Epilepsy, unspecified, not intractable, without status epilepticus; I48.0 Paroxysmal atrial fibrillation; E11.622 Type 2 diabetes mellitus with other skin ulcer; L97.529 Non-pressure chronic ulcer of other part of left foot with unspecified severity; L97.329 Non-pressure chronic ulcer of left ankle with unspecified severity; D47.3 Essential (hemorrhagic) thrombocythemia; Z79.01 Long term (current) use of anticoagulants; E78.5 Hyperlipidemia, unspecified; I50.33 Acute on chronic diastolic (congestive) heart failure; G89.29 Other chronic pain; Z95.0 Presence of cardiac pacemaker; Z86.73 Personal history of transient ischemic attack (TIA), and cerebral infarction without residual deficits; Z98.41 Cataract extraction status, right eye; Z79.84 Long term (current) use of oral hypoglycemic drugs; Z79.899 Other long term (current) drug therapy; Z79.02 Long term (current) use of antithrombotics/antiplatelets; N40.0 Benign prostatic hyperplasia without lower urinary tract symptoms

== ENCOUNTER → 2025-01-16 | Outpatient (CLI) | payer BC ==
[~2025-01-16] MED LIST changes: +AMOX875T2 PO; +CLOP75TA2 PO; +FURO20TA2 PO; +GLIP-318 PO; -GLIP5TAB20 PO; +IBUP-1764 PO; +LIDO5TD TD; +TAMS1CAP17 PO
[2025-01-16 16:05] LABS: HEMOGLOBIN A1c 5.9 % (4.0-6.0)
== END ==
LOC: M PLALAB 12:37
PROVIDERS: ATTEND Nurse Practitioner Family
DX: E11.621 Type 2 diabetes mellitus with foot ulcer (principal)

== ENCOUNTER → 2025-02-15 | Outpatient (CLI) | payer BC | LOC: M RAD 13:55 | PROVIDERS: ATTEND Otolaryngology | DX: J32.8 Other chronic sinusitis (principal) ==